=== PATIENT | male | born 1935 | race Caucasian/White ===

== ENCOUNTER 2020-08-23 15:50 | Inpatient (IN) ==
[2020-08-23] MEDS ORDERED: IOPAMIDOL 100 ML BOTTLE IV ONE (15:51)
[2020-08-23] MEDS ORDERED: ONDANSETRON 4 MG/2 ML VIAL IV ONE ×2 (16:31→19:29)
[2020-08-23] MEDS ORDERED: LACTATED RINGERS 1,000 ML IV ONE (16:31)
[2020-08-23] MEDS ORDERED: LEVOFLOXACIN 750 MG/150 ML BAG IV ONE (16:32)
[2020-08-23] MEDS ORDERED: metroNIDAZOLE 500 MG/100 ML BAG IV ONE (16:32)
--- NOTE | 2020-08-23 16:38 | Emergency Department Note ---
Abdominal Pain HPI General Chief Complaint: Abdominal Pain Stated Complaint: abdominal pain Time Seen by Provider: 08/23/20 16:19 Source: patient and RN notes reviewed Mode of arrival: wheelchair Limitations: no limitations History of Present Illness HPI Narrative: Narrative: This patient had a CT scan in the diagnosed diverticulitis a week ago so by Dr. Miranda. He got worse over the last several days with nausea vomiting worsening pain. Also some diarrhea. He has been unable to keep medications down. MD Complaint: abdominal pain Onset (ago): week(s) Consistency: constant Location: diffuse Severity: moderate Quality: aching Radiation: none Migration to: no migration Improves with: nothing Worsens with: movement Related Data Previous Rx's Medication Instructions Recorded levofloxacin 750 mg PO DAILY #7 tab 01/25/19 ondansetron 4 mg SL Q4-6HP PRN #10 tab 01/25/19 oseltamivir 75 mg PO BID #10 cap 01/25/19 Allergies Allergy/AdvReac Type Severity Reaction Status Date / Time No Known Drug Allergies Allergy Verified 08/23/20 15:53 Review of Systems ROS ROS Narrative: Narrative: All systems ED: reviewed and negative except as stated. Constitutional: Denies fever and chills Cardiovascular: Denies chest pain Respiratory: Denies shortness of breath and cough Gastrointestinal: Reports abdominal pain, nausea, vomiting and diarrhea PFSH Narrative Patient History Narrative: Narrative: Medical/Surgical/Family History All Active Problems (Updated 08/23/20 @ 20:54 by Matt Patton MD) Diverticulitis (Acute) Abdominal pain (Acute) Influenza (Acute) Pneumonia (Acute) Medical History (Updated 08/23/20 @ 20:54 by Matt Patton MD) Diverticulitis (Acute) Surgical History (Updated 08/22/20 @ 08:20 by Kaiden Mayogra MD) History of lumbosacral spine surgery (Acute) Social History Smoking Status: Never smoker Exam Narrative Narrative: Narrative: General Limitations: no limitations Head Head: Present atraumatic, normocephalic and normal inspection Eye Eye: Present normal appearance and EOMI; Absent scleral icterus and conjunctival injection ENT ENT: Present normal exam and normal oropharynx Neck Neck: Present normal inspection and full ROM Chest Chest: Present normal inspection and symmetric chest wall rise Respiratory Respiratory: Present normal lung sounds bilaterally; Absent respiratory distress, rales/crackles and wheezes Cardiovascular Cardiovascular: Present regular rate, normal rhythm and normal heart sounds Adbominal Abdominal: Present soft, distention, tenderness and hypoactive bowel sounds; Absent guarding, rebound and rigidity Extremities Extremities: Present normal inspection and full ROM; Absent pedal edema and pretibial edema Neurological Neurological: Present alert Psychiatric Psychiatric: Present normal affect Skin Skin: Present warm (WNL) and diaphoresis Course Vital Signs Vital signs: Vital Signs Temperature 98.8 F 08/23/20 15:50 Pulse Rate 92 H 08/23/20 15:50 Respiratory Rate 20 08/23/20 15:50 Blood Pressure 178/83 08/23/20 15:50 Pulse Oximetry (%) 97 08/23/20 15:50 Temperature 98.8 F 08/23/20 15:50 Pulse Rate 99 H 08/23/20 20:31 Respiratory Rate 20 08/23/20 15:50 Blood Pressure 144/104 08/23/20 20:31 Pulse Oximetry (%) 99 08/23/20 20:31 MDM MDM Narrative Medical decision making narrative: Narrative: I discussed the case with the tariff compiling clerk at [facility] and they have agreed to accept the patient in the morning as they have no beds available tonight. Dr. Gutierrez will admit the patient tonight for control of pain and nausea. Lab Data Lab results reviewed: Yes I reviewed the patient's lab results. Lab results narrative: Bilirubin was 1.7 potassium was 2.9 liver function tests were normal. Result diagrams: 08/23/20 16:42 08/23/20 16:42 Labs: Lab Results 08/23/20 08/23/20 08/23/20 Range/Units 16:42 16:42 19:07 WBC 9.4 (4.5-11.0) K/mcL RBC 3.97 L (4.50-5.90) M/mcL Hgb 12.5 L (13.5-16.5) g/dL Hct 35.0 L (41.0-55.0) % MCV 88.2 (80.0-100.0) fL MCH 31.5 (26.0-34.0) pg MCHC 35.7 (31.0-36.0) g/dL RDW 12.4 (11.5-14.5) % Plt Count 194 (140-440) K/mcL MPV 8.9 (7.4-10.4) fL Neut % (Auto) 83.3 H (38.0-78.0) % Lymph % (Auto) 8.2 L (15.0-49.0) % [place] % (Auto) 8.4 (1.0-12.0) % Eos % (Auto) 0 (0.0-7.0) % Baso % (Auto) 0.1 (0.0-2.0) % Lymph # (Auto) 0.77 L (1.50-4.80) K/mcL [place] # (Auto) 0.79 (0.10-0.90) K/mcL Eos # (Auto) 0 (0.00-0.70) K/mcL Baso # (Auto) 0.01 (0.00-0.20) K/mcL Absolute Neutrophils 7.79 (1.80-8.00) K/mcL Sodium 138 (133-145) mmol/L Potassium 2.9 L* (3.3-5.1) mmol/L Chloride 104 (96-108) mmol/L Carbon Dioxide 17 L (22-30) mmol/L Anion Gap 17.0 H (8.0-16.0) BUN 15 (8-23) mg/dL Creatinine 1.2 (0.7-1.2) mg/dL GFR Calculation 54 Glucose 129 H (70-105) mg/dL Calcium 8.5 L (8.6-10.4) mg/dL Total Bilirubin 1.7 H (0.1-1.0) mg/dL AST 36 (<40) U/L ALT 21 (<40) U/L Alkaline Phosphatase 60 (39-117) U/L Total Protein 5.7 L (5.9-8.4) gm/dL Albumin 3.8 (3.2-5.2) gm/dL Globulin 1.9 L (2.2-3.7) gm/dL Albumin/Globulin Ratio 2.0 (1.0-2.3) Lipase 32 (7-60) U/L Urine Color Straw Urine Appearance Clear (Clear) Urine pH 6.0 (5.0-9.0) Ur Specific [place] 1.033 (1.000-1.035) Urine Protein Negative (Negative) mg/dL Urine Glucose (UA) Negative (Negative) mg/dL Urine Ketones 20 A (Negative) mg/dL Urine Occult Blood 0.03 (Negative) mg/dL Urine Nitrate Negative (Negative) Urine Bilirubin Negative (Negative) mg/dL Urine Urobilinogen Negative mg/dL Ur Leukocyte Esterase Negative (Negative) /ug Urine RBC 2 H (0-1) /hpf Urine WBC < 1 (0-4) /hpf Ur Squamous Epith Cells 0 (0-4) /hpf Urine Bacteria None (0) /hpf Ur Culture Indicated? No Radiology Data Radiology results reviewed: Yes I reviewed the patient's radiology results. Radiology results narrative: CT is suggestive of obstruction of the pancreatic and common bile duct by a diverticulum. Common bile duct measures 9 mm. Discharge Plan Patient/Caregiver Discharge Instructions Pt seen by MITER CUTTER/PA only: No Clinical Impression: Abdominal pain Patient Disposition: Xfer As Outpt/Obs ([facility]) Follow up with: Salvatore Miranda MD [Primary Care Provider] - Prescriptions: No Action oseltamivir 75 MG capsule 75 mg PO BID Qty: 10 RF: 0 levofloxacin 750 MG tablet 750 mg PO DAILY Qty: 7 RF: 0 ondansetron 4 MG tablet 4 mg SL Q4-6HP PRN (Reason: Nausea) Qty: 10 RF: 0
[2020-08-23] MEDS: HYDROmorphone 0.5 MG/0.5 ML SYRINGE IV PRN ×3 (16:55→22:21)
[2020-08-23 17:34] LABS: Basophils # (Auto) 0.01 K/mcL (0.00-0.20); Basophils % (Auto) 0.1 % (0.0-2.0); Eosinophils # (Auto) 0 K/mcL (0.00-0.70); Eosinophils % (Auto) 0 % (0.0-7.0); Hemoglobin 12.5 g/dL (13.5-16.5); Lymphocytes # (Auto) 0.77 K/mcL (1.50-4.80); Lymphocytes % (Auto) 8.2 % (15.0-49.0); Mean Cell Volume 88.2 fL (80.0-100.0); Mean Corpuscular HGB Conc 35.7 g/dL (31.0-36.0); Mean Platelet Volume 8.9 fL (7.4-10.4); Monocytes # (Auto) 0.79 K/mcL (0.10-0.90); Monocytes % (Auto) 8.4 % (1.0-12.0); Neutrophils % (Auto) 83.3 % (38.0-78.0); Platelet Count 194 K/mcL (140-440); RBC 3.97 M/mcL (4.50-5.90); Red Cell Distribution Width 12.4 % (11.5-14.5); WBC 9.4 K/mcL (4.5-11.0)
[2020-08-23] MEDS ORDERED: LORazepam 2 MG/ML VIAL IV ONE (17:59)
[2020-08-23] MEDS ORDERED: POTASSIUM CHLORIDE 20 MEQ in DEXTROSE 5% IN WATER 250 ML IV ONE (18:11)
[2020-08-23 18:12] LABS: ALT/SGPT 21 U/L (<40); AST/SGOT 36 U/L (<40); Albumin 3.8 gm/dL (3.2-5.2); Alkaline Phosphatase 60 U/L (39-117); Bilirubin,Total 1.7 mg/dL (0.1-1.0); Blood Urea Nitrogen 15 mg/dL (8-23); Calcium 8.5 mg/dL (8.6-10.4); Carbon Dioxide 17 mmol/L (22-30); Chloride 104 mmol/L (96-108); Globulin 1.9 gm/dL (2.2-3.7); Glomerular Filtration Rate 54; Glucose 129 mg/dL (70-105)
--- NOTE | 2020-08-23 18:17 | Cat Scan Report ---
CLINICAL INFORMATION: Abdominal pain nausea and vomiting. History of diverticulitis COMPARISON: None. TECHNIQUE: Following enteric contrast, 80 cc of Isovue-370 were injected intravenously, and 60 seconds later, 0.625 mm helical slices were obtained from the mid heart through the subtrochanteric regions. Following reconstruction, 2.5 mm sagittal, coronal and axial reformatted images were processed and reviewed at bone, lung and soft tissue windows. Five minutes later, 0.625 mm helical slices were obtained from the mid heart through the kidneys and viewed at soft tissue windows.The exam was performed using radiation dose optimization techniques including, but not limited to, automated exposure control, adjustment of the mA and/or kV according to patient size and use of iterative reconstruction technique. FINDINGS: Lung bases show mild interstitial fibrosis in the periphery of both lower lobes with traction bronchiectasis within a few of the subsegmental bronchi. No effusions and no stormy infiltrates. The heart is moderately enlarged with extremely heavy calcification in the mitral annulus and the aortic valves. There is also calcific plaque in the visualized coronary arteries. Abdominal images show minimal fatty change within the liver, but no focal hepatic lesions. The gallbladder is either very severely contracted or surgically absent. There is a 6 mm stone either within the contracted gallbladder or a cystic duct stump. Intrahepatic, common hepatic and common bile ducts are moderately dilated colon CBD is 9 mm. There is a 9 mm periampullary diverticulum which may contribute to, bile duct obstruction. Pancreatic duct is also dilated - 4 mm. The remaining pancreas is unremarkable. The right kidney is atrophic with a length is 7.6 cm.Left kidney demonstrates mild compensatory hypertrophy - 11 cm. Mild perinephric stranding about both kidneys. A 5.4 cm simple cyst originates originates from the anterior mid right kidney. The 3 mm nonobstructing stone within a mid calyx of the right kidney but no obstructing stone or nephrosis. A 2.7 cm benign adenoma is noted in the left adrenal gland. Right adrenal gland is normal. Spleen is unremarkable. The abdominal aorta is normal diameter riddled with very heavy fibrofatty calcific plaque. There is a greater than 90% stenosis of the right renal artery origin due to calcific plaque - likely the reason for right renal atrophy. A stenosis greater than 50% is seen within the proximal SMA due to calcific plaque. The remainder of the aortic branches contain plaque but no definite stenoses. There is no free air, free fluid or adenopathy Pelvic images show mild prostate enlargement: 4.1 x 3.4 x 4 cm. This minimal diffuse wall thickening of the urinary bladder suggesting chronic bladder outlet narrowing. Multiple sigmoid diverticuli appreciated no evidence of diverticulitis. The remaining colon appendix, small bowel large bowel and stomach are grossly normal.. A 4 cm right adrenal hernia contains only mesenteric fat. There is also a 3.4 cm femoral hernia containing only mesenteric fat. Bone windows show anterior/posterior fusion at L2-3 and wide laminectomy.. Severe L1-2, L3-4 and L4-5 central canal, lateral recess and IV foraminal stenosis due to broad disc protrusion appreciated.. No focal osseous lesions IMPRESSION: 1. 6 mm stone either within a cystic duct stump or a severely contracted gallbladder. Please correlate with surgical history of prior cholecystectomy. 2. Moderate dilatation of the intrahepatic, common bile duct and pancreatic duct due to a 1 cm periampullary diverticulum partially obstructing both ducts in the ampullary region. 3. 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 Compensatory hypertrophy of the left kidney. A 3 mm nonobstructing stone present within the mid calyx of the right kidney. 4. Sigmoid diverticulosis, but no evidence of diverticulitis. 5. Moderate prostate enlargement with wall thickening of the urinary bladder suggesting chronic bladder outlet narrowing 6. Small right inguinal and femoral hernias containing only mesenteric fat. 7. Moderate cardiomegaly with heavy calcification in the aortic and mitral valves. 8. L1-2, L3-4 and L4-5 central canal, lateral recesses and IV foraminal stenosis due to degeneration. Please correlate with neurogenic claudication and history of lower extremity radiculopathy. 9. 2.7 cm benign adenoma left adrenal gland Interpreted and Authenticated by: Daniel Quiroz 08/23/20
[2020-08-23 20:28] LABS: Appearance,Urine CLEAR (Clear); Bilirubin,Urine Negative (Negative); Color,Urine STRAW; Culture Indicated,Urine No; Glucose,Urine (UA) Negative (Negative); Ketones,Urine 20 mg/dL (Negative); Leukocyte Esterase,Urine Negative /ug (Negative); Nitrate,Urine Negative (Negative); Protein,Urine Negative (Negative); Specific Gravity,Urine 1.033 (1.000-1.035); Urine Blood 0.03 mg/dL (Negative); Urine RBC 2 /hpf (0-1); Urine Squamous Epithelial Cell 0 /hpf (0-4); Urine WBC < 1 /hpf (0-4); Urobilinogen,Urine Negative
[2020-08-23 22:13] LABS: INR 1.1 (0.9-1.1); Prothrombin Time 14.7 sec (11.9-14.5)
[2020-08-23] MEDS ORDERED: HYDROmorphone 1 MG/ML SYRINGE IV PRN (23:52)
[2020-08-23] MEDS ORDERED: METOCLOPRAMIDE 10 MG/2 ML VIAL IV ONE (23:53)
--- NOTE | 2020-08-24 05:56 | Ultrasound Report ---
INDICATION: History of cholecystectomy. Right upper quadrant pain. Abnormal CT scan demonstrates intrahepatic and extrahepatic bile duct dilatation TECHNIQUE: Grayscale and color flow Doppler spectral imaging COMPARISON: Previous CT scan dated 08/23/2020 FINDINGS: Gallbladder:Patient is a history of cholecystectomy. There is a small fluid-containing structure in the expected location of the gallbladder. This may be a contracted gallbladder or cystic duct remnant. There is a calculus with in it. This measures 8 mm maximally. There is no surrounding inflammatory change or free fluid. Common bile duct:Common bile duct measures 7 mm. Distal common bile duct is not well visualized. No significant intrahepatic bile duct dilatation at this time.. Liver:Liver measures 13 cm maximally. Liver appears mildly echogenic. No focal mass. Liver contour is smooth. No evidence for cirrhosis.. Portal vein:Normal hepatopedal portal venous flow Pancreas:Pancreas is poorly visualized Right kidney:Right kidney measures 8.2 x 4.0 x 4.0 cm. Right kidney is atrophic. There is a small benign upper pole cyst. IMPRESSION: 1. Focal abnormality in the right upper quadrant in the gallbladder fossa. This may be a contracted gallbladder or cystic duct remnant. Patient gives a history of cholecystectomy 2. 8 mm calculus within this structure 3. Mildly prominent common bile duct. No intrahepatic bile duct dilatation. Interpreted and Authenticated by: Daniel Durham 08/24/20
[2020-08-24 08:55] LABS: Basophils # (Auto) 0 K/mcL (0.00-0.20); Basophils % (Auto) 0 % (0.0-2.0); Eosinophils # (Auto) 0.23 K/mcL (0.00-0.70); Eosinophils % (Auto) 1.8 % (0.0-7.0); Hematocrit 33.4 % (41.0-55.0); Lymphocytes # (Auto) 0.78 K/mcL (1.50-4.80); Lymphocytes % (Auto) 6.1 % (15.0-49.0); Mean Cell Volume 87.7 fL (80.0-100.0); Mean Corpuscular HGB Conc 35.9 g/dL (31.0-36.0); Monocytes # (Auto) 1.13 K/mcL (0.10-0.90); Monocytes % (Auto) 8.8 % (1.0-12.0); Neutrophils % (Auto) 83.3 % (38.0-78.0); Platelet Count 179 K/mcL (140-440); RBC 3.81 M/mcL (4.50-5.90); Red Cell Distribution Width 12.7 % (11.5-14.5); WBC 12.8 K/mcL (4.5-11.0)
[2020-08-24] MEDS ORDERED: POTASSIUM CHLORIDE 20 MEQ TABLET PO ONE (09:18)
[2020-08-24 09:22] LABS: ALT/SGPT 19 U/L (<40); AST/SGOT 37 U/L (<40); Albumin 3.3 gm/dL (3.2-5.2); Albumin/Globulin Ratio 1.7 (1.0-2.3); Alkaline Phosphatase 54 U/L (39-117); Bilirubin,Total 1.5 mg/dL (0.1-1.0); Blood Urea Nitrogen 16 mg/dL (8-23); Calcium 7.7 mg/dL (8.6-10.4); Carbon Dioxide 19 mmol/L (22-30); Chloride 102 mmol/L (96-108); Globulin 1.9 gm/dL (2.2-3.7); Glomerular Filtration Rate 60; Glucose 134 mg/dL (70-105)
--- NOTE | 2020-08-24 10:06 | Emergency Department Note ---
HPI General Chief complaint: Abdominal Pain Stated complaint: abdominal pain Time Seen by Provider: 08/23/20 16:19 Source: patient and RN notes reviewed Mode of arrival: wheelchair Limitations: no limitations History of Present Illness HPI Narrative: 85-year-old male presenting to the emergency department with ongoing progression of his abdominal pain patient seen previously for the same thing. At this point in his work-up I assumed care after Dr. Patton had him overnight. Patient with pending MRCP to determine if there is obstructing stone in the common bile duct or other acute emergent pathology. Related Data Home Medications Medication Instructions Recorded Confirmed hydrocodone-acetaminophen 1 tab PO Q4-6HP PRN 08/24/20 08/24/20 Allergies Allergy/AdvReac Type Severity Reaction Status Date / Time No Known Drug Allergies Allergy Verified 08/23/20 15:53 Review of Systems ROS ROS Narrative: Narrative: All systems ED: reviewed and negative except as stated. Gastrointestinal: Reports abdominal pain, nausea, vomiting and diarrhea PFSH Narrative Patient History Narrative: Narrative: Medical/Surgical/Family History All Active Problems (Updated 08/24/20 @ 15:59 by Huy Cruz MD) Musculoskeletal chest pain (Acute) Diverticulitis (Acute) Abdominal pain (Acute) Influenza (Acute) Pneumonia (Acute) Medical History Diverticulitis (Acute) Surgical History History of lumbosacral spine surgery (Acute) Social History Smoking Status: Never smoker Exam Narrative Narrative: Narrative: General: Alert, interactive, appropriate Head: Atraumatic, normocephalic Eyes: Extraocular movements intact, sclera anicteric, no conjunctival injection Ears: Pinnae normal, no discharge Mouth: Oral mucosa moist, no acute swelling or evidence of infection Nares: No nasal discharge, patent bilaterally Neck: Trachea midline, full range of motion Chest: Symmetrical chest wall rise, breathing normally; nonlabored respirations Cardiovascular: Patient with excellent perfusion to the extremities; without tachycardia/bradycardia Abd: no apparent abdominal distention, no voluntary/involuntary guarding; patient with primarily midepigastric abdominal pain Skin: Patient without area of erythema, patient is without rash, no ascending lymphangitis or lymphadenopathy Extremities: Full range of motion joints, no obvious deformities Neuro: Alert, oriented x3, cranial nerves II through XII grossly intact, patient without lateralizing findings such as weakness, or abnormal reflexes Psychiatric: Normal affect, normal mood General Limitations: no limitations Course Vital Signs Vital signs: Vital Signs Temperature 98.8 F 08/23/20 15:50 Pulse Rate 92 H 08/23/20 15:50 Respiratory Rate 20 08/23/20 15:50 Blood Pressure 178/83 08/23/20 15:50 Pulse Oximetry (%) 97 08/23/20 15:50 Temperature 97.9 F 08/24/20 14:13 Pulse Rate 81 08/24/20 13:31 Respiratory Rate 16 08/24/20 14:13 Blood Pressure 164/82 08/24/20 14:13 Pulse Oximetry (%) 98 08/24/20 14:13 [facility] MDM Narrative Medical decision making narrative: Assumed care this morning at 0900 patient with pending MRCP. Patient also noted to be hypokalemic this was treated with 40 M EQ KCl. Patient with MRCP that does not demonstrate a significant occlusion of the common bile duct or diverticulum or other abnormality of the common bile duct at this time. Patient with dark stool does have pretty stable H&H over time little bit of tachycardia earlier. Discussed case with Dr. Pizano and patient does not need ERCP could potentially need endoscopy. Patient given Protonix 80 mg IV. Also given some IV fluids were repeating his potassium after 20 K rider last night and potassium has gone down from 2. 9 to 2.7. Discussed the case with Dr. Gutierrez and the consensus medical opinion is to admit the pt for hypokalemia and guiac positive stools. Lab Data Result diagrams: 08/24/20 07:58 08/24/20 07:58 Labs: Lab Results 08/23/20 08/23/20 08/23/20 Range/Units 16:42 16:42 19:07 WBC 9.4 (4.5-11.0) K/mcL RBC 3.97 L (4.50-5.90) M/mcL Hgb 12.5 L (13.5-16.5) g/dL Hct 35.0 L (41.0-55.0) % MCV 88.2 (80.0-100.0) fL MCH 31.5 (26.0-34.0) pg MCHC 35.7 (31.0-36.0) g/dL RDW 12.4 (11.5-14.5) % Plt Count 194 (140-440) K/mcL MPV 8.9 (7.4-10.4) fL Neut % (Auto) 83.3 H (38.0-78.0) % Lymph % (Auto) 8.2 L (15.0-49.0) % [place] % (Auto) 8.4 (1.0-12.0) % Eos % (Auto) 0 (0.0-7.0) % Baso % (Auto) 0.1 (0.0-2.0) % Lymph # (Auto) 0.77 L (1.50-4.80) K/mcL [place] # (Auto) 0.79 (0.10-0.90) K/mcL Eos # (Auto) 0 (0.00-0.70) K/mcL Baso # (Auto) 0.01 (0.00-0.20) K/mcL Absolute Neutrophils 7.79 (1.80-8.00) K/mcL PT (11.9-14.5) sec INR (0.9-1.1) VBG Lactic Acid (0.5-2.0) mmol/L Sodium 138 (133-145) mmol/L Potassium 2.9 L* (3.3-5.1) mmol/L Chloride 104 (96-108) mmol/L Carbon Dioxide 17 L (22-30) mmol/L Anion Gap 17.0 H (8.0-16.0) BUN 15 (8-23) mg/dL Creatinine 1.2 (0.7-1.2) mg/dL GFR Calculation 54 Glucose 129 H (70-105) mg/dL Calcium 8.5 L (8.6-10.4) mg/dL Total Bilirubin 1.7 H (0.1-1.0) mg/dL AST 36 (<40) U/L ALT 21 (<40) U/L Alkaline Phosphatase 60 (39-117) U/L Total Protein 5.7 L (5.9-8.4) gm/dL Albumin 3.8 (3.2-5.2) gm/dL Globulin 1.9 L (2.2-3.7) gm/dL Albumin/Globulin Ratio 2.0 (1.0-2.3) Lipase 32 (7-60) U/L Urine Color Straw Urine Appearance Clear (Clear) Urine pH 6.0 (5.0-9.0) Ur Specific [place] 1.033 (1.000-1.035) Urine Protein Negative (Negative) mg/dL Urine Glucose (UA) Negative (Negative) mg/dL Urine Ketones 20 A (Negative) mg/dL Urine Occult Blood 0.03 (Negative) mg/dL Urine Nitrate Negative (Negative) Urine Bilirubin Negative (Negative) mg/dL Urine Urobilinogen Negative mg/dL Ur Leukocyte Esterase Negative (Negative) /ug Urine RBC 2 H (0-1) /hpf Urine WBC < 1 (0-4) /hpf Ur Squamous Epith Cells 0 (0-4) /hpf Urine Bacteria None (0) /hpf Ur Culture Indicated? No SARS-CoV-2 (PCR) (Negative) 08/23/20 08/23/20 08/24/20 Range/Units 21:21 21:26 07:58 WBC 12.8 H (4.5-11.0) K/mcL RBC 3.81 L (4.50-5.90) M/mcL Hgb 12.0 L (13.5-16.5) g/dL Hct 33.4 L (41.0-55.0) % MCV 87.7 (80.0-100.0) fL MCH 31.5 (26.0-34.0) pg MCHC 35.9 (31.0-36.0) g/dL RDW 12.7 (11.5-14.5) % Plt Count 179 (140-440) K/mcL MPV 9.0 (7.4-10.4) fL Neut % (Auto) 83.3 H (38.0-78.0) % Lymph % (Auto) 6.1 L (15.0-49.0) % [place] % (Auto) 8.8 (1.0-12.0) % Eos % (Auto) 1.8 (0.0-7.0) % Baso % (Auto) 0 (0.0-2.0) % Lymph # (Auto) 0.78 L (1.50-4.80) K/mcL [place] # (Auto) 1.13 H (0.10-0.90) K/mcL Eos # (Auto) 0.23 (0.00-0.70) K/mcL Baso # (Auto) 0 (0.00-0.20) K/mcL Absolute Neutrophils 10.63 H (1.80-8.00) K/mcL PT 14.7 H (11.9-14.5) sec INR 1.1 (0.9-1.1) VBG Lactic Acid (0.5-2.0) mmol/L Sodium (133-145) mmol/L Potassium (3.3-5.1) mmol/L Chloride (96-108) mmol/L Carbon Dioxide (22-30) mmol/L Anion Gap (8.0-16.0) BUN (8-23) mg/dL Creatinine (0.7-1.2) mg/dL GFR Calculation Glucose (70-105) mg/dL Calcium (8.6-10.4) mg/dL Total Bilirubin (0.1-1.0) mg/dL AST (<40) U/L ALT (<40) U/L Alkaline Phosphatase (39-117) U/L Total Protein (5.9-8.4) gm/dL Albumin (3.2-5.2) gm/dL Globulin (2.2-3.7) gm/dL Albumin/Globulin Ratio (1.0-2.3) Lipase (7-60) U/L Urine Color Urine Appearance (Clear) Urine pH (5.0-9.0) Ur Specific [place] (1.000-1.035) Urine Protein (Negative) mg/dL Urine Glucose (UA) (Negative) mg/dL Urine Ketones (Negative) mg/dL Urine Occult Blood (Negative) mg/dL Urine Nitrate (Negative) Urine Bilirubin (Negative) mg/dL Urine Urobilinogen mg/dL Ur Leukocyte Esterase (Negative) /ug Urine RBC (0-1) /hpf Urine WBC (0-4) /hpf Ur Squamous Epith Cells (0-4) /hpf Urine Bacteria (0) /hpf Ur Culture Indicated? SARS-CoV-2 (PCR) Negative (Negative) 08/24/20 08/24/20 Range/Units 07:58 13:48 WBC (4.5-11.0) K/mcL RBC (4.50-5.90) M/mcL Hgb (13.5-16.5) g/dL Hct (41.0-55.0) % MCV (80.0-100.0) fL MCH (26.0-34.0) pg MCHC (31.0-36.0) g/dL RDW (11.5-14.5) % Plt Count (140-440) K/mcL MPV (7.4-10.4) fL Neut % (Auto) (38.0-78.0) % Lymph % (Auto) (15.0-49.0) % [place] % (Auto) (1.0-12.0) % Eos % (Auto) (0.0-7.0) % Baso % (Auto) (0.0-2.0) % Lymph # (Auto) (1.50-4.80) K/mcL [place] # (Auto) (0.10-0.90) K/mcL Eos # (Auto) (0.00-0.70) K/mcL Baso # (Auto) (0.00-0.20) K/mcL Absolute Neutrophils (1.80-8.00) K/mcL PT (11.9-14.5) sec INR (0.9-1.1) VBG Lactic Acid 1.4 (0.5-2.0) mmol/L Sodium 136 (133-145) mmol/L Potassium 2.7 L* (3.3-5.1) mmol/L Chloride 102 (96-108) mmol/L Carbon Dioxide 19 L (22-30) mmol/L Anion Gap 15.0 (8.0-16.0) BUN 16 (8-23) mg/dL Creatinine 1.1 (0.7-1.2) mg/dL GFR Calculation 60 Glucose 134 H (70-105) mg/dL Calcium 7.7 L (8.6-10.4) mg/dL Total Bilirubin 1.5 H (0.1-1.0) mg/dL AST 37 (<40) U/L ALT 19 (<40) U/L Alkaline Phosphatase 54 (39-117) U/L Total Protein 5.2 L (5.9-8.4) gm/dL Albumin 3.3 (3.2-5.2) gm/dL Globulin 1.9 L (2.2-3.7) gm/dL Albumin/Globulin Ratio 1.7 (1.0-2.3) Lipase 16 (7-60) U/L Urine Color Urine Appearance (Clear) Urine pH (5.0-9.0) Ur Specific [place] (1.000-1.035) Urine Protein (Negative) mg/dL Urine Glucose (UA) (Negative) mg/dL Urine Ketones (Negative) mg/dL Urine Occult Blood (Negative) mg/dL Urine Nitrate (Negative) Urine Bilirubin (Negative) mg/dL Urine Urobilinogen mg/dL Ur Leukocyte Esterase (Negative) /ug Urine RBC (0-1) /hpf Urine WBC (0-4) /hpf Ur Squamous Epith Cells (0-4) /hpf Urine Bacteria (0) /hpf Ur Culture Indicated? SARS-CoV-2 (PCR) (Negative) Discharge Plan Patient/Caregiver Discharge Instructions Pt seen by DIRECT[employer]ES/PA only: No Clinical Impression: Abdominal pain, Acute hypokalemia, Guaiac positive stools Patient Disposition: Xfer As Outpt/Obs ([facility]) Condition: Fair Discharge Date/Time: 08/24/20 14:03
[2020-08-24] MEDS ORDERED: PANTOPRAZOLE 40 MG VIAL IV ONE (11:44)
--- NOTE | 2020-08-24 12:47 | Magnetic Resonance Report ---
INDICATION: History of cholecystectomy. Abdominal pain. COMPARISON: CT scan dated 08/23/2020. Abdominal ultrasound dated 08/24/2020 TECHNIQUE: Axial T2 FSRTr, T2 FS SSFSE, SSFSE, T2 SSFSE BH, SSFSE BH, FIRM T1 BH. Coronal T2 FSRTr, SSFSE BH. MIP cine images. FINDINGS: Somewhat suboptimal evaluation as this patient was unable to hold his breath. This patient gives a history of previous cholecystectomy. There is a contracted gallbladder with visualized cystic duct. There appear to be 2 calculi within the gallbladder or remnant gallbladder. These measure 5 mm and 7 mm in size. No pericholecystic abnormality. Common bile duct measures 6.3 mm in cross-sectional diameter. No intraluminal filling defect. No choledocholithiasis. Liver is negative. No focal intrahepatic abnormality. Liver contour is smooth. There is no ascites. Pancreatic duct is irregular in caliber which may indicate chronic pancreatitis. Pancreatic duct is dilated and measures 6 mm maximally. There is no pancreatic head mass identified on this noncontrast enhanced examination. Previous CT scan demonstrated a 10 mm periampullary diverticulum. This is not identified on present examination. Left adrenal gland is enlarged and contains central fat. This is a benign appearance Right kidney is atrophic, unchanged. There is no solid renal mass. No hydronephrosis. There is a 5 cm left lower pole renal cyst. IMPRESSION: 1. Findings consistent with small gallbladder or gallbladder remnant. Two intraluminal filling defects are consistent with cholelithiasis 2. No choledocholithiasis 3. Mildly prominent and irregular pancreatic duct. Chronic pancreatitis is possible. There is no pancreatic mass Interpreted and Authenticated by: Daniel Durham 08/24/20
--- NOTE | 2020-08-24 12:59 | Internal Med History&Physical ---
HPI History of Present Illness Patient information: Note initiated : 08/24/20 at 12:59 pm Service Date, if different from initiated Date: [] Patient: Torrey Castro a 85 y/o M admitted on for abdominal pain. Chief Complaint: Abd pain History of present illness: Mr. Castro is a 85 year old M resents to the ER second time in 24 hours with persistent mid upper and right-sided abdominal pain along associated diarrhea. Patient was evaluated at his primary care physician's office and underwent CT scan that was suggestive of diverticulitis. He was started on Flagyl and ciprofloxacin on the however symptoms continued to worsen with increasing nausea abdominal discomfort worsening with food. He presented again yesterday. Initial work-up was consistent with intrahepatic and common bile duct dilatation due to a 1 cm perioperative diverticulum obstructing both ducts. Subsequently GI at [place] was consulted however due to lack of availability of beds patient was kept overnight. Patient subsequent underwent MRCP that did not show any evidence of choledocho lithiasis. Subsequently hospitalist service was consulted. Patient was also noticed to have potassium 2.7 for which he was started on replacement. He was noted to have black stools for which GI was consulted and recommended hospitalization/PPI . Thereafter hospital service was consulted for admission The time of my evaluation patient is in moderate discomfort endorses to 6 out of 10 to 8 out of 10 mid abdominal pain. Denies associated fever, shaking chills, jaundice, dysuria endorses to 2-3 episodes of loose stools. He also denies loss of appetite. Patient denies changes in medication, sick contacts. He denies recent trauma, fall, bruising. Review of systems 10 point review system was performed and is negative except for ones discussed above PFSH PFSH All Active Problems (Updated 08/24/20 @ 15:59 by Huy Cruz MD) Musculoskeletal chest pain (Acute) Diverticulitis (Acute) Abdominal pain (Acute) Influenza (Acute) Pneumonia (Acute) Medical History Diverticulitis (Acute) Surgical History History of lumbosacral spine surgery (Acute) Social History smoking status: Never smoker MEDS/ALLERGIES Home Medications and Allergies Home Medications Medication Instructions Recorded Confirmed Type hydrocodone-acetaminophen 1 tab PO Q4-6HP PRN 08/24/20 08/24/20 History Allergies Allergy/AdvReac Type Severity Reaction Status Date / Time No Known Drug Allergies Allergy Verified 08/23/20 15:53 EXAM Constitutional Vitals: Temp Pulse Resp BP Pulse Ox 98.8 F 83 20 144/81 97 08/23/20 15:50 08/24/20 12:57 08/23/20 15:50 08/24/20 12:44 08/24/20 12:57 Anxious and distressed Head normocephalic Oral cavity moist No ear nose discharge No scleral icterus Neck supple no lymphadenopathy S1-S2 occasionally irregular Nonlabored breathing Tender abdomen epigastric area without rebound or guarding Lower extremity no cyanosis clubbing or joint swelling Skin no suspicious lesion Psych anxious but alert cooperative Neuro normal higher function DATA Data Completed and Pending Labs: Labs from last 24 hours 08/24/20 08/24/20 08/23/20 07:58 07:58 21:26 WBC 12.8 H RBC 3.81 L Hgb 12.0 L Hct 33.4 L MCV 87.7 MCH 31.5 MCHC 35.9 RDW 12.7 Plt Count 179 MPV 9.0 Neut % (Auto) 83.3 H Lymph % (Auto) 6.1 L [place] % (Auto) 8.8 Eos % (Auto) 1.8 Baso % (Auto) 0 Lymph # (Auto) 0.78 L [place] # (Auto) 1.13 H Eos # (Auto) 0.23 Baso # (Auto) 0 Absolute Neutrophils 10.63 H PT 14.7 H INR 1.1 Sodium 136 Potassium 2.7 L* Chloride 102 Carbon Dioxide 19 L Anion Gap 15.0 BUN 16 Creatinine 1.1 GFR Calculation 60 Glucose 134 H Calcium 7.7 L Total Bilirubin 1.5 H AST 37 ALT 19 Alkaline Phosphatase 54 Total Protein 5.2 L Albumin 3.3 Globulin 1.9 L Albumin/Globulin Ratio 1.7 Lipase 16 Urine Color Urine Appearance Urine pH Ur Specific [place] Urine Protein Urine Glucose (UA) Urine Ketones Urine Occult Blood Urine Nitrate Urine Bilirubin Urine Urobilinogen Ur Leukocyte Esterase Urine RBC Urine WBC Ur Squamous Epith Cells Urine Bacteria Ur Culture Indicated? SARS-CoV-2 (PCR) 08/23/20 08/23/20 08/23/20 21:21 20:36 19:07 WBC RBC Hgb Hct MCV MCH MCHC RDW Plt Count MPV Neut % (Auto) Lymph % (Auto) [place] % (Auto) Eos % (Auto) Baso % (Auto) Lymph # (Auto) [place] # (Auto) Eos # (Auto) Baso # (Auto) Absolute Neutrophils PT Pending INR Pending Sodium Potassium Chloride Carbon Dioxide Anion Gap BUN Creatinine GFR Calculation Glucose Calcium Total Bilirubin AST ALT Alkaline Phosphatase Total Protein Albumin Globulin Albumin/Globulin Ratio Lipase Urine Color Straw Urine Appearance Clear Urine pH 6.0 Ur Specific [place] 1.033 Urine Protein Negative Urine Glucose (UA) Negative Urine Ketones 20 A Urine Occult Blood 0.03 Urine Nitrate Negative Urine Bilirubin Negative Urine Urobilinogen Negative Ur Leukocyte Esterase Negative Urine RBC 2 H Urine WBC < 1 Ur Squamous Epith Cells 0 Urine Bacteria None Ur Culture Indicated? No SARS-CoV-2 (PCR) Negative 08/23/20 08/23/20 16:42 16:42 WBC 9.4 RBC 3.97 L Hgb 12.5 L Hct 35.0 L MCV 88.2 MCH 31.5 MCHC 35.7 RDW 12.4 Plt Count 194 MPV 8.9 Neut % (Auto) 83.3 H Lymph % (Auto) 8.2 L [place] % (Auto) 8.4 Eos % (Auto) 0 Baso % (Auto) 0.1 Lymph # (Auto) 0.77 L [place] # (Auto) 0.79 Eos # (Auto) 0 Baso # (Auto) 0.01 Absolute Neutrophils 7.79 PT INR Sodium 138 Potassium 2.9 L* Chloride 104 Carbon Dioxide 17 L Anion Gap 17.0 H BUN 15 Creatinine 1.2 GFR Calculation 54 Glucose 129 H Calcium 8.5 L Total Bilirubin 1.7 H AST 36 ALT 21 Alkaline Phosphatase 60 Total Protein 5.7 L Albumin 3.8 Globulin 1.9 L Albumin/Globulin Ratio 2.0 Lipase 32 Urine Color Urine Appearance Urine pH Ur Specific [place] Urine Protein Urine Glucose (UA) Urine Ketones Urine Occult Blood Urine Nitrate Urine Bilirubin Urine Urobilinogen Ur Leukocyte Esterase Urine RBC Urine WBC Ur Squamous Epith Cells Urine Bacteria Ur Culture Indicated? SARS-CoV-2 (PCR) A/P Narrative A/P Narrative: * Abdominal pain unclear etiology. Continue conservative management/analgesics with bowel rest and crystalloids. Extensive imaging negative for acute process including MRCP/CT abdomen. Rule out musculoskeletal cause. Rule out ischemic bowel. Surgery consult * Dark stools possible upper GI bleed. GI consult., PPI, n.p.o. every 4 hemoglobin checks * Hypokalemia 2.7 on replacement * Prophylaxis SCDs Plan * Observation admit * Serial hemoglobin * PPI * Check venous lactate * Surgery consult * GI consult if worsening abdominal pain * Potassium replacement * Directed therapies Time Spent With Patient Time: Total time spent is greater than 50% in coordination of care (as documented) at patient's floor/unit and/or counseling patient:
[2020-08-24] MEDS ORDERED: ONDANSETRON 4 MG ODT TABLET SL PRN (14:13)
[2020-08-24] MEDS ORDERED: ACETAMINOPHEN 325 MG TABLET PO PRN (14:13)
[2020-08-24] MEDS ORDERED: BISACODYL 10 MG SUPP.RECT PR PRN (14:13)
[2020-08-24] MEDS ORDERED: ONDANSETRON 4 MG/2 ML VIAL IV PRN (14:13)
[2020-08-24] MEDS ORDERED: POTASSIUM CHLORIDE 20 MEQ PACKET PO PRN (14:13)
[2020-08-24] MEDS ORDERED: POLYETHYLENE GLYCOL 3350 17 GM PACKET PO PRN (14:13)
[2020-08-24] MEDS ORDERED: ACETAMINOPHEN 650 MG/65 ML BOTTLE IV PRN (14:13)
[2020-08-24] MEDS ORDERED: MAGNESIUM SULFATE 2 GM/50 ML BAG IV PRN (14:13)
[2020-08-24] MEDS: 0.9 % SODIUM CHLORIDE 1,000 ML IV SCH (14:27)
[2020-08-24] MEDS: 0.9 % SODIUM CHLORIDE 10 ML SYRINGE IV SCH ×2 (14:27→21:07)
[2020-08-24] MEDS: HYDROmorphone 0.5 MG/0.5 ML SYRINGE IV PRN ×2 (14:40→22:13)
[2020-08-24] MEDS: POTASSIUM CHLORIDE 40 MEQ in DEXTROSE 5% IN WATER 500 ML IV PRN (15:28)
[2020-08-24 15:42] LABS: INR 1.2 (0.9-1.1); Prothrombin Time 15.3 sec (11.9-14.5)
--- NOTE | 2020-08-24 16:06 | General Surgery Consult Note ---
HPI Data of Consult Consult date: 08/24/20 Requesting physician: Raul Chaudhary Primary Care Provider: Salvatore Miranda Consult Narrative Patient Information: Note initiated : 08/24/20 at 3:43 pm Service Date, if different from initiated Date: [] Patient: Torrey Castro 85 y/o M admitted on 08/24/20 for abdominal pain. Chief Complaint: [] Chief complaint: upper abdominal left flank and CVA pain cc:: CC: Raul Chaudhary the patient is seen for evaluation of abdominal pain. He has been evaluated since 22 August for abdominal pain in the ER. He presented with complaints of abdominal pain and diarrhea and gave a history that he had a diagnosis of diverticulitis confirmed by CT at [facility]. He was treated with Cipro and Flagyl but stopped because he states that the medication made the pain worse and he developed nausea and vomiting. The CT at [place] is interpreted as showing diverticulitis of the descending colon. On examination on the he had a diffusely tender abdomen but had a normal white count of 6.6 with hemoglobin 11.8 and hematocrit of 33.3. He was discharged. Return shortly thereafter and complained of similar pain. He was In the emergency room overnight. His white count was 9.4, hemoglobin 12.5, hematocrit 35. There was a question by CT of him having a small stone in the cystic duct remnant. The patient is status post open cholecystectomy many years ago. He however has had normal LFTs and is alkaline phosphatase is totally normal. He has not been febrile. On the evening of 23 August he complained of midepigastric pain. He was afebrile at that time. An attempt was made to have him transferred to [facility] but there was no bed available and he has been in the emergency room for quite some time. It was suggested that an MRCP be done in an MRCP was done earlier today and this shows 2 small subcentimeter retained stones and a small cystic duct remnant of normal common bowel duct and normal pancreatic. His serum lactate is 1.4. There is a question of whether or not he has had guaiac positive stools but his hemoglobin has been stable over the past 2 days. On questioning today at this time the patient is complaining of left sided pain in an area of where he has 4 linear bruises and superficial abrasions. He has very definite tenderness of his lower costal cartilages on the left side and he has tenderness of his left rib cage extending back to the CVA region. He states now that this is the site of the pain that he's had all along however he seems to be confused. He denies nausea at this time. He does state that he had some diarrhea. PFSH PFSH All Active Problems (Updated 08/24/20 @ 15:59 by Huy Cruz MD) Musculoskeletal chest pain (Acute) Diverticulitis (Acute) Abdominal pain (Acute) Influenza (Acute) Pneumonia (Acute) Medical History Diverticulitis (Acute) Surgical History History of lumbosacral spine surgery (Acute) Social History smoking status: Never smoker MEDS/ALLERGIES Home Medications and Allergies Home Medications Medication Instructions Recorded Confirmed Type hydrocodone-acetaminophen 1 tab PO Q4-6HP PRN 08/24/20 08/24/20 History Allergies Allergy/AdvReac Type Severity Reaction Status Date / Time No Known Drug Allergies Allergy Verified 08/23/20 15:53 Physical Examination Vital Signs Vital signs: Temp Pulse Resp BP Pulse Ox 97.9 F 81 16 164/82 98 08/24/20 14:13 08/24/20 13:31 08/24/20 14:13 08/24/20 14:13 08/24/20 14:13 General physical appearance General physical exam: well developed, moderate distress and moderate pain (left sided lower costal cartilages and left rib cage extending posteriorly; superficial linear abrasions in the area of tenderness) Eyes Eye exam: PERRL and normal ocular movement ENT ENT exam: normal mucosa and decreased hearing (significant hearing loss) Head Head exam IM: Present atraumatic, normal inspection and normocephalic Head exam expanded IM: Absent general tenderness Neck Neck exam: no masses, trachea midline, no lymphadenopathy and no venous diste nsion; negative no bruits Cardiovascular Cardiovascular exam IM: Present normal rate and rhythm, RRR, +S1 and +S2; Absent gallop and JVD Respiratory Respiratory exam: normal expansion, normal respiratory effort and clear to auscultation Abdomen Abdomen: Present soft and tender (mild tenderness in epigastrium to the left of midline and along the lower left sided subcostal region) Integumentary Integumentary: Present other (for superficial abrasions of the left posterior lateral rib cage) Neurologic Neurologic: Present normal coordination, normal sensation and memory loss (apparent loss of recent memory on close questioning) Musculoskeletal Musculoskeletal: Present normal posture Psychiatric Psychiatric: Present oriented to time, oriented to person, oriented to place and speech is normal Results Labs Result diagrams: 08/24/20 07:58 08/24/20 07:58 Labs: Abnormal lab results 08/23/20 08/23/20 08/23/20 Range/Units 16:42 16:42 19:07 WBC (4.5-11.0) K/mcL RBC 3.97 L (4.50-5.90) M/mcL Hgb 12.5 L (13.5-16.5) g/dL Hct 35.0 L (41.0-55.0) % Neut % (Auto) 83.3 H (38.0-78.0) % Lymph % (Auto) 8.2 L (15.0-49.0) % Lymph # (Auto) 0.77 L (1.50-4.80) K/mcL [place] # (Auto) (0.10-0.90) K/mcL Absolute Neutrophils (1.80-8.00) K/mcL PT (11.9-14.5) sec INR (0.9-1.1) Potassium 2.9 L* (3.3-5.1) mmol/L Carbon Dioxide 17 L (22-30) mmol/L Anion Gap 17.0 H (8.0-16.0) Glucose 129 H (70-105) mg/dL Calcium 8.5 L (8.6-10.4) mg/dL Total Bilirubin 1.7 H (0.1-1.0) mg/dL Total Protein 5.7 L (5.9-8.4) gm/dL Globulin 1.9 L (2.2-3.7) gm/dL Urine Ketones 20 A (Negative) mg/dL Urine RBC 2 H (0-1) /hpf 08/23/20 08/24/20 08/24/20 Range/Units 21:26 07:58 07:58 WBC 12.8 H (4.5-11.0) K/mcL RBC 3.81 L (4.50-5.90) M/mcL Hgb 12.0 L (13.5-16.5) g/dL Hct 33.4 L (41.0-55.0) % Neut % (Auto) 83.3 H (38.0-78.0) % Lymph % (Auto) 6.1 L (15.0-49.0) % Lymph # (Auto) 0.78 L (1.50-4.80) K/mcL [place] # (Auto) 1.13 H (0.10-0.90) K/mcL Absolute Neutrophils 10.63 H (1.80-8.00) K/mcL PT 14.7 H (11.9-14.5) sec INR (0.9-1.1) Potassium 2.7 L* (3.3-5.1) mmol/L Carbon Dioxide 19 L (22-30) mmol/L Anion Gap (8.0-16.0) Glucose 134 H (70-105) mg/dL Calcium 7.7 L (8.6-10.4) mg/dL Total Bilirubin 1.5 H (0.1-1.0) mg/dL Total Protein 5.2 L (5.9-8.4) gm/dL Globulin 1.9 L (2.2-3.7) gm/dL Urine Ketones (Negative) mg/dL Urine RBC (0-1) /hpf 08/24/20 Range/Units 14:20 WBC (4.5-11.0) K/mcL RBC (4.50-5.90) M/mcL Hgb (13.5-16.5) g/dL Hct (41.0-55.0) % Neut % (Auto) (38.0-78.0) % Lymph % (Auto) (15.0-49.0) % Lymph # (Auto) (1.50-4.80) K/mcL [place] # (Auto) (0.10-0.90) K/mcL Absolute Neutrophils (1.80-8.00) K/mcL PT 15.3 H (11.9-14.5) sec INR 1.2 H (0.9-1.1) Potassium (3.3-5.1) mmol/L Carbon Dioxide (22-30) mmol/L Anion Gap (8.0-16.0) Glucose (70-105) mg/dL Calcium (8.6-10.4) mg/dL Total Bilirubin (0.1-1.0) mg/dL Total Protein (5.9-8.4) gm/dL Globulin (2.2-3.7) gm/dL Urine Ketones (Negative) mg/dL Urine RBC (0-1) /hpf Diabetes panel 08/23/20 08/24/20 Range/Units 16:42 07:58 Sodium 138 136 (133-145) mmol/L Potassium 2.9 L* 2.7 L* (3.3-5.1) mmol/L Chloride 104 102 (96-108) mmol/L Carbon Dioxide 17 L 19 L (22-30) mmol/L BUN 15 16 (8-23) mg/dL Creatinine 1.2 1.1 (0.7-1.2) mg/dL Glucose 129 H 134 H (70-105) mg/dL Calcium 8.5 L 7.7 L (8.6-10.4) mg/dL AST 36 37 (<40) U/L ALT 21 19 (<40) U/L Alkaline Phosphatase 60 54 (39-117) U/L Total Protein 5.7 L 5.2 L (5.9-8.4) gm/dL Albumin 3.8 3.3 (3.2-5.2) gm/dL Calcium panel 08/23/20 08/24/20 Range/Units 16:42 07:58 Calcium 8.5 L 7.7 L (8.6-10.4) mg/dL Albumin 3.8 3.3 (3.2-5.2) gm/dL Pituitary panel 08/23/20 08/24/20 Range/Units 16:42 07:58 Sodium 138 136 (133-145) mmol/L Potassium 2.9 L* 2.7 L* (3.3-5.1) mmol/L Chloride 104 102 (96-108) mmol/L Carbon Dioxide 17 L 19 L (22-30) mmol/L BUN 15 16 (8-23) mg/dL Creatinine 1.2 1.1 (0.7-1.2) mg/dL Glucose 129 H 134 H (70-105) mg/dL Calcium 8.5 L 7.7 L (8.6-10.4) mg/dL Adrenal panel 08/23/20 08/24/20 Range/Units 16:42 07:58 Sodium 138 136 (133-145) mmol/L Potassium 2.9 L* 2.7 L* (3.3-5.1) mmol/L Chloride 104 102 (96-108) mmol/L Carbon Dioxide 17 L 19 L (22-30) mmol/L BUN 15 16 (8-23) mg/dL Creatinine 1.2 1.1 (0.7-1.2) mg/dL Glucose 129 H 134 H (70-105) mg/dL Calcium 8.5 L 7.7 L (8.6-10.4) mg/dL Total Bilirubin 1.7 H 1.5 H (0.1-1.0) mg/dL AST 36 37 (<40) U/L ALT 21 19 (<40) U/L Alkaline Phosphatase 60 54 (39-117) U/L Total Protein 5.7 L 5.2 L (5.9-8.4) gm/dL Albumin 3.8 3.3 (3.2-5.2) gm/dL All other labs normal. A/P Assessment and plan (1) Abdominal pain: Status: Acute Qualifiers: Abdominal location: generalized Qualified Code(s): R10.84 - Generalized abdominal pain (2) Musculoskeletal chest pain: Status: Acute Narrative A/P Narrative: the patient's clinical history is somewhat altered by the variable response that he is given each examiner. The finding of small stones in a very short cystic duct remnant without any elevation in alkaline phosphatase is probably of no clinical significance. It is unlikely that there is enough pressure generated by the small remnant to cause any type of biliary colic. His history of diverticulitis can be dismissed since follow-up CT does not confirm that there is any inflammation in the descending or sigmoid colon. Most of his discomfort is epigastric and left upper quadrant rather than the left lower quadrant. He has fairly prominent tenderness of the lower costal cartilages extending posteriorly to the CVA region. I query whether or not this is an area of his discomfort rather than right sided discomfort. He specifically does not have any left lower quadrant findings at this time. In view of the stable hemoglobin and hematocrit over a 2 day interim, it is unlikely that he has a significant upper or lower GI bleed and I will leave it up to GI as to whether or not they think he may still have full endoscopic evaluation. I would recommend left rib cage films and check sedimentation rate and CPK. Unless some other entity can be found I think simple treatment of his musculoskeletal discomfort may be sufficient. Time Spent With Patient Time: Total time spent is greater than 50% in coordination of care (as documented) at patient's floor/unit and/or counseling patient:
[2020-08-24] MEDS: PANTOPRAZOLE 40 MG VIAL IV SCH (17:20)
--- NOTE | 2020-08-24 17:55 | Cat Scan Report ---
INDICATION: Possible rib injury COMPARISON: Abdominal CT scan dated 08/23/2020 TECHNIQUE: Axial noncontrast enhanced images through the chest. Sagittally and coronally reformatted images. MIP reformatted images. FINDINGS: Lungs:Lung bases are abnormal. There is interlobular septal thickening. There may be mild honeycombing. 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 No focal parenchymal consolidation. No discrete mass. There is no pleural fluid. Mediastinum, vascular:No pathologic mediastinal or hilar adenopathy There is calcification of the thoracic aorta. Thoracic aorta is otherwise negative. No aneurysmal dilatation Heart:There is a least mild calcified coronary artery disease. There is mitral annular calcification. There is no pericardial effusion Pleura:No pleural effusion. No pleural-based mass. No pleural calcification Axilla, supraclavicular regions, chest wall:No axillary or supraclavicular adenopathy. There are nonacute right rib fractures. There are healed fractures of the right third, fourth, fifth ribs. No acute fractures. No lytic lesions. There is a nonacute left 10th rib fracture. Musculoskeletal:No thoracic compression fractures. No lytic lesions. Upper Abdomen:Upper abdomen is unchanged since prior examination dated 08/23/2020. Again demonstrated is a small gallbladder or gallbladder remnant with calcified stone or stones. There is right renal atrophy. There is a densely calcified right renal artery with probable high-grade stenosis. There is calcification at the origin of the superior mesenteric artery. Hemodynamically significant stenosis is likely. Clinical correlation for symptoms of mesenteric angina recommended. IMPRESSION: 1. No acute rib fractures. Chronic healed rib fractures as above 2. Abnormal lung bases. 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 Right renal atrophy and right renal artery stenosis 4. 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 Recommend clinical correlation for mesenteric ischemia The exam was performed using radiation dose optimization techniques including, but not limited to, automated exposure control, adjustment of the mA and/or kV according to patient size and use of iterative reconstruction technique. Interpreted and Authenticated by: Daniel Durham 08/24/20
[2020-08-24] MEDS: SENNOSIDES/DOCUSATE SODIUM 1 TAB TABLET PO SCH (21:07)
[2020-08-24] MEDS: DOCUSATE SODIUM 100 MG CAPSULE PO SCH (21:07)
[2020-08-24] MEDS: MELATONIN 3 MG TABLET PO PRN (21:48)
[2020-08-25] MEDS: 0.9 % SODIUM CHLORIDE 10 ML SYRINGE IV SCH ×3 (05:05→20:11)
[2020-08-25] MEDS: PANTOPRAZOLE 40 MG VIAL IV SCH ×2 (07:14→17:17)
[2020-08-25] MEDS: DOCUSATE SODIUM 100 MG CAPSULE PO SCH ×2 (08:28→20:11)
[2020-08-25] MEDS: MULTIVIT,THER IRON,CA,FA & MIN 1 TABLET PO SCH (08:45)
[2020-08-25 08:47] LABS: ALT/SGPT 17 U/L (<40); AST/SGOT 35 U/L (<40); Albumin 2.9 gm/dL (3.2-5.2); Albumin/Globulin Ratio 1.5 (1.0-2.3); Alkaline Phosphatase 48 U/L (39-117); Bilirubin,Direct 0.2 mg/dL (<0.3); Bilirubin,Total 1.6 mg/dL (0.1-1.0); Blood Urea Nitrogen 16 mg/dL (8-23); Calcium 7.4 mg/dL (8.6-10.4); Carbon Dioxide 16 mmol/L (22-30); Chloride 107 mmol/L (96-108); Glomerular Filtration Rate 60; Glucose 108 mg/dL (70-105); Lactate Dehydrogenase 291 U/L (135-225); Phosphorous 1.4 mg/dL (2.5-4.5); Triglycerides 93 mg/dL (<150); Uric Acid 5.6 mg/dL (2.5-8.0)
--- NOTE | 2020-08-25 09:04 | Internal Med Progress Note ---
SUBJECTIVE Subjective Patient information: Note initiated : 08/25/20 at 9:01 am Service Date, if different from initiated Date: [] Patient: Torrey Castro 85 y/o M admitted on 08/24/20 for abdominal pain. Chief Complaint: Mr. Castro is a 85 year old M resents to the ER second time in 24 hours with persistent mid upper and right-sided abdominal pain along associated diarrhea. Patient was evaluated at his primary care physician's office and underwent CT scan that was suggestive of diverticulitis. He was started on Flagyl and ciprofloxacin on the however symptoms continued to worsen with increasing nausea abdominal discomfort worsening with food. He presented again yesterday. Initial work-up was consistent with intrahepatic and common bile duct dilatation due to a 1 cm perioperative diverticulum obstructing both ducts. Subsequently GI at [place] was consulted however due to lack of availability of beds patient was kept overnight. Patient subsequent underwent MRCP that did not show any evidence of choledocho lithiasis. Subsequently hospitalist service was consulted. Patient was also noticed to have potassium 2.7 for which he was started on replacement. He was noted to have black stools for which GI was consulted and recommended hospitalization/PPI . Thereafter hospital service was consulted for admission The time of my evaluation patient is in moderate discomfort endorses to 6 out of 10 to 8 out of 10 mid abdominal pain. Denies associated fever, shaking chills, jaundice, dysuria endorses to 2-3 episodes of loose stools. He also denies loss of appetite. Patient denies changes in medication, sick contacts. He denies recent trauma, fall, bruising. 08/25-patient doing a lot better overnight. Pain in good control. Denies diarrhea. No nausea vomiting. Currently on PPI. Hemoglobin 10.4., INR 1.2, potassium improved to 3.6, phosphorus 1.4, initiate replacement. Surgery on board. CT chest no evidence of musculo- skeletal trauma/fractures Constitutional Vitals: Vital Signs Temp Pulse Resp BP Pulse Ox 96.8 F L 65 15 151/87 97 08/25/20 08:50 08/25/20 03:01 08/25/20 08:04 08/25/20 08:01 08/25/20 08:04 Period Temp Pulse Resp BP Sys/Crespo Pulse Ox Last 24 Hr 96.8 F-98.4 F 65-116 14-25 123-200/50-105 90-100 Intake and Output 08/24/20 08/25/20 08/25/20 21:59 05:59 13:59 Intake Total 520 365 90 Output Total 0 175 200 Balance 520 190 -110 Weight 63.276 kg Alert oriented Nondistended minimally tender abdomen No lymphedema Intake & Output: Intake & Output 08/24/20 08/25/20 08/25/20 21:59 05:59 13:59 Intake Total 520 365 90 Output Total 0 175 200 Balance 520 190 -110 Weight 63.276 kg Intake: IV 520 65 Potassium Chloride 40 Meq In 520 Dextrose 5% in Water 500 ml @ 130 mls/hr IV UD PRN Rx#: [id number] Oral 0 300 90 Output: Void Amount 0 175 200 Other: Meal Dinner Breakfast Percent of Meal Consumed 10 Jello Feeding Ability Assist with Tray Set Up Independent Urine Appearance Clear Clear Urine Color Dark Yellow Light Jenelle Urine Odor Normal Stool Size Small Stool Color Brown Stool Consistency Loose # Bowel Movements 1 0 # of times incontinent of 0 Bowels OBJ DATA Labs CBC & Chem 7: 08/25/20 00:08 08/25/20 04:34 Labs: Abnormal Lab Results 08/25/20 08/25/20 08/24/20 04:34 00:08 20:05 WBC RBC Hgb 10.4 L 11.1 L Hct Neut % (Auto) Lymph % (Auto) Lymph # (Auto) [place] # (Auto) Absolute Neutrophils ESR PT INR Potassium Carbon Dioxide 16 L Anion Gap Glucose 108 H Calcium 7.4 L Phosphorus 1.4 L Total Bilirubin 1.6 H Lactate Dehydrogenase 291 H Total Creatine Kinase Total Protein 4.9 L Albumin 2.9 L Globulin 2.0 L Urine Ketones Urine RBC 08/24/20 08/24/20 08/24/20 16:03 16:03 14:20 WBC RBC Hgb 12.0 L Hct Neut % (Auto) Lymph % (Auto) Lymph # (Auto) [place] # (Auto) Absolute Neutrophils ESR 60 H PT 15.3 H INR 1.2 H Potassium Carbon Dioxide Anion Gap Glucose Calcium Phosphorus Total Bilirubin Lactate Dehydrogenase Total Creatine Kinase Total Protein Albumin Globulin Urine Ketones Urine RBC 08/24/20 08/24/20 08/24/20 13:48 07:58 07:58 WBC 12.8 H RBC 3.81 L Hgb 12.0 L Hct 33.4 L Neut % (Auto) 83.3 H Lymph % (Auto) 6.1 L Lymph # (Auto) 0.78 L [place] # (Auto) 1.13 H Absolute Neutrophils 10.63 H ESR PT INR Potassium 2.7 L* Carbon Dioxide 19 L Anion Gap Glucose 134 H Calcium 7.7 L Phosphorus Total Bilirubin 1.5 H Lactate Dehydrogenase Total Creatine Kinase 362 H Total Protein 5.2 L Albumin Globulin 1.9 L Urine Ketones Urine RBC 08/23/20 08/23/20 08/23/20 21:26 19:07 16:42 WBC RBC Hgb Hct Neut % (Auto) Lymph % (Auto) Lymph # (Auto) [place] # (Auto) Absolute Neutrophils ESR PT 14.7 H INR Potassium 2.9 L* Carbon Dioxide 17 L Anion Gap 17.0 H Glucose 129 H Calcium 8.5 L Phosphorus Total Bilirubin 1.7 H Lactate Dehydrogenase Total Creatine Kinase Total Protein 5.7 L Albumin Globulin 1.9 L Urine Ketones 20 A Urine RBC 2 H 08/23/20 16:42 WBC RBC 3.97 L Hgb 12.5 L Hct 35.0 L Neut % (Auto) 83.3 H Lymph % (Auto) 8.2 L Lymph # (Auto) 0.77 L [place] # (Auto) Absolute Neutrophils ESR PT INR Potassium Carbon Dioxide Anion Gap Glucose Calcium Phosphorus Total Bilirubin Lactate Dehydrogenase Total Creatine Kinase Total Protein Albumin Globulin Urine Ketones Urine RBC Meds: Medications Acetaminophen (Tylenol) 650 mg PO Q4-6HP PRN; Protocol PRN Reason: Per Pain Protocol/Fever > 101 Bisacodyl (Dulcolax) 10 mg [place] Q2-3DAYS PRN PRN Reason: Constipation Docusate Sodium (Colace) 100 mg PO BID [facility] Last Admin: 08/25/20 08:28 Dose: Not Given Documented by: Hydromorphone HCl (Dilaudid) 0.25 - 0.5 mg IV Q4HP PRN; Protocol PRN Reason: Per Pain Protocol Last Admin: 08/24/20 22:13 Dose: 0.5 mg Documented by: Potassium Chloride 40 meq/ (Dextrose) 520 mls @ 130 mls/hr IV UD PRN PRN Reason: K+ = or < 3.5 Last Infusion: 08/24/20 19:30 Dose: Infused Documented by: Acetaminophen (Ofirmev) 650 mg in 65 mls @ 130 mls/hr IV Q6HP PRN; Protocol PRN Reason: Per Pain Protocol/Fever > 101 Last Infusion: 08/25/20 01:32 Dose: Infused Documented by: Magnesium Sulfate (Magnesium Sulfate) 2 gm in 50 mls @ 50 mls/hr IV UD PRN PRN Reason: MG = or < 1.7 Sodium Chloride (Sodium Chloride 0.9%) 1,000 mls @ 50 mls/hr IV .Q20H [facility] Stop: 08/27/20 02:12 Last Admin: 08/24/20 14:27 Dose: 50 mls/hr Documented by: Iron Carb/Multivit/Disposal Man/Folic Acid (Multivitamin W/Minerals) 1 tab PO DAILY [facility] Last Admin: 08/25/20 08:45 Dose: 1 tab Documented by: Melatonin (Melatonin 3mg Tablet) 3 mg PO HSP PRN PRN Reason: Insomnia Last Admin: 08/24/20 21:48 Dose: 3 mg Documented by: Ondansetron HCl (Zofran Odt) 4 mg SL Q4-6HP PRN; Protocol PRN Reason: Nausea And Vomiting Ondansetron HCl (Zofran) 4 mg IV Q4-6HP PRN; Protocol PRN Reason: Nausea And Vomiting Pantoprazole Sodium (Protonix) 40 mg IV BIDAC [facility] Last Admin: 08/25/20 07:14 Dose: 40 mg Documented by: Polyethylene Glycol (Miralax) 17 gm PO DAILYP PRN PRN Reason: Constipation Potassium Chloride (Klor-Con) 40 meq PO DAILYP PRN PRN Reason: K+ < 3.5 Senna/Docusate Sodium (Senna Plus Tablet) 1 tab PO HS [facility] Last Admin: 08/24/20 21:07 Dose: Not Given Documented by: Sodium Chloride (Saline Flush) 10 ml IV Q8 [facility] Last Admin: 08/25/20 05:05 Dose: Not Given Documented by: A/P Assessment and plan (1) Abdominal pain: Status: Acute Qualifiers: Abdominal location: generalized Qualified Code(s): R10.84 - Generalized abdominal pain (2) Musculoskeletal chest pain: Status: Acute Narrative A/P Narrative: * Abdominal pain unclear etiology. Clinical improvement noted over last 12 hours. Continue conservative management/analgesics with bowel rest and crystalloids. Extensive imaging negative for acute process. No evidence of ischemic bowel. Surgery on board * Dark stools possible upper GI bleed. GI consult., PPI, n.p.o. every 4 hemoglobin checks. Hemoglobin down to 10.4. Continue monitoring. * Hypokalemia improved to 3.6 with replacement. * Low phosphorus start replacement * Prophylaxis SCDs Plan * Continue PPI * If worsening hemoglobin GI consult for upper endoscopy * Phosphorus replacement * Directed therapies Time Spent With Patient Time: Total time spent is greater than 50% in coordination of care (as documented) at patient's floor/unit and/or counseling patient: QUALITY VTE Deep Vein Thrombosis/Pulmonary Embolism Present on Admission: No
[2020-08-25 09:08] LABS: Eosinophils % (Manual) 1 % (0-7); Hematocrit 31.5 % (41.0-55.0); Hemoglobin 10.7 g/dL (13.5-16.5); Lymphocytes % 12 % (15-49); Mean Cell Volume 92.1 fL (80.0-100.0); Mean Platelet Volume 9.3 fL (7.4-10.4); Monocytes % (Manual) 10 % (1-12); Platelet Count 163 K/mcL (140-440); Platelet Estimate NORMAL (Normal); RBC 3.42 M/mcL (4.50-5.90); RBC Morphology NORMAL (Normal); Red Cell Distribution Width 13.2 % (11.5-14.5); Segmented Neutrophils % 77 % (38-78); WBC 8.4 K/mcL (4.5-11.0)
[2020-08-25] MEDS: 0.9 % SODIUM CHLORIDE 1,000 ML IV SCH (11:19)
--- NOTE | 2020-08-25 13:33 | General Surgery Progress Note ---
SUBJECTIVE Subjective Patient information: Note initiated : 08/25/20 at 1:28 pm Service Date, if different from initiated Date: [] Patient: Torrey Castro 85 y/o M admitted on 08/24/20 for abdominal pain. Chief Complaint: [] Principal diagnosis: left upper quadrant and left lateral rib cage pain Interval history: patient states that he feels much better. He denies abdominal pain at this time. He denies nausea. He still has mild left posterolateral rib cage pain. CT of chest reveals old fractures but no acute fractures. White blood count 8.4, hemoglobin 10.7, hematocrit 31.5, potassium 3.6, BUN 16, creatinine 1.1, phosphorus 1.4, sedimentation rate 60, CK 362 Constitutional Vitals: Vital Signs Temp Pulse Resp BP Pulse Ox 98.9 F 65 17 159/58 98 08/25/20 10:00 08/25/20 03:01 08/25/20 12:01 08/25/20 12:01 08/25/20 12:01 Period Temp Pulse Resp BP Sys/Crespo Pulse Ox Last 24 Hr 96.8 F-98.9 F 65-89 14-25 123-177/50-100 90-100 Intake and Output 08/24/20 08/25/20 08/25/20 21:59 05:59 13:59 Intake Total 522 063 4356 Output Total 0 175 200 Balance 520 190 890 Weight 139 lb 8 oz Intake & Output: Intake & Output 08/24/20 08/25/20 08/25/20 21:59 05:59 13:59 Intake Total 547 233 3138 Output Total 0 175 200 Balance 520 190 890 Weight 139 lb 8 oz Intake: IV 504 01 8561 Sodium Chloride 0.9% 1,000 ml @ 1000 50 mls/hr IV .Q20H [facility] Rx#: [id number] Potassium Chloride 40 Meq In 520 Dextrose 5% in Water 500 ml @ 130 mls/hr IV UD PRN Rx#: [id number] Oral 0 300 90 Output: Void Amount 0 175 200 Other: Meal Dinner Breakfast Percent of Meal Consumed 10 Jello Feeding Ability Assist with Tray Set Up Independent Urine Appearance Clear Clear Urine Color Dark Yellow Light Jenelle Urine Odor Normal Stool Size Small Moderate Stool Color Brown Brown Green Stool Consistency Loose Watery Loose # Bowel Movements 1 0 1 # of times incontinent of 0 Bowels Neck Neck exam: Present full ROM; Absent tenderness Respiratory Respiratory exam: Present normal respiratory exam and CTAB; Absent rales, rhonchi and wheezes Additional comments: mild tenderness of posterolateral rib cage on the left Cardiovascular Cardiovascular exam: Present normal rate and rhythm, RRR, +S1 and +S2; Absent JVD GI/Abdominal GI/Abdominal exam: Present normal bowel sounds and soft; Absent distended, guarding and mass Extremities Exam Extremities exam: Present normal inspection; Absent tenderness Back Exam Back exam: Present normal inspection; Absent tenderness Neurological Exam Neurological exam: Present alert, CN II-XII intact, oriented X3 and reflexes normal; Absent motor sensory deficit Psychiatric Psychiatric exam: Present normal affect and normal mood A/P Assessment and plan (1) Musculoskeletal chest pain: Status: Acute (2) Abdominal pain: Status: Acute Qualifiers: Abdominal location: generalized Qualified Code(s): R10.84 - Generalized abdominal pain Narrative A/P Narrative: continue to treat for musculoskeletal pain I do not see any reason for further investigation of abdominal complaints. Time Spent With Patient Time: Total time spent is greater than 50% in coordination of care (as documented) at patient's floor/unit and/or counseling patient:
[2020-08-25] MEDS: NEUTRA PHOS 1 PACKET PO SCH (20:11)
[2020-08-25] MEDS: SENNOSIDES/DOCUSATE SODIUM 1 TAB TABLET PO SCH (20:11)
[2020-08-25] MEDS: MELATONIN 3 MG TABLET PO PRN (20:12)
[2020-08-26] MEDS ORDERED: HYDROCODONE/APAP 7.5/325MG TABLET PO PRN (04:21)
[2020-08-26] MEDS ORDERED: HYDROCODONE/APAP 7.5/325MG TABLET PO ONE (04:30)
[2020-08-26] MEDS: 0.9 % SODIUM CHLORIDE 10 ML SYRINGE IV SCH ×3 (05:37→22:30)
[2020-08-26 06:55] LABS: ALT/SGPT 17 U/L (<40); AST/SGOT 28 U/L (<40); Albumin 3.2 gm/dL (3.2-5.2); Albumin/Globulin Ratio 1.8 (1.0-2.3); Alkaline Phosphatase 49 U/L (39-117); Bilirubin,Direct 0.3 mg/dL (<0.3); Bilirubin,Total 1.6 mg/dL (0.1-1.0); Blood Urea Nitrogen 14 mg/dL (8-23); Calcium 7.5 mg/dL (8.6-10.4); Carbon Dioxide 20 mmol/L (22-30); Chloride 106 mmol/L (96-108); Globulin 1.8 gm/dL (2.2-3.7); Glomerular Filtration Rate 68; Glucose 114 mg/dL (70-105); Lactate Dehydrogenase 263 U/L (135-225); Phosphorous 1.7 mg/dL (2.5-4.5); Triglycerides 104 mg/dL (<150); Uric Acid 5.2 mg/dL (2.5-8.0)
--- NOTE | 2020-08-26 06:55 | XRay Report ---
INDICATION: Chest pain TECHNIQUE: AP portable upright chest x-ray COMPARISON: Previous chest CT scan dated 08/24/2020 FINDINGS: Lungs:Lungs are negative. No focal pulmonary parenchymal infiltrate or mass Heart, vascular:No significant cardiomegaly. Pulmonary vascularity is normal. No pulmonary edema or pulmonary congestion Mediastinum, shlomo:No mediastinal widening. No hilar mass Pleura:No pleural fluid. No pleural-based mass or calcification Skeletal:Negative. IMPRESSION: 1. No acute or focal abnormality 2. No interval change 08/24/2020 Interpreted and Authenticated by: Daniel Durham 08/26/20
[2020-08-26] MEDS: 0.9 % SODIUM CHLORIDE 1,000 ML IV SCH (07:10)
[2020-08-26] MEDS: PANTOPRAZOLE 40 MG VIAL IV SCH ×2 (07:10→16:45)
[2020-08-26] MEDS: POTASSIUM CHLORIDE 40 MEQ in DEXTROSE 5% IN WATER 500 ML IV PRN (07:21)
[2020-08-26 08:23] LABS: Eosinophils % (Manual) 1 % (0-7); Hematocrit 29.7 % (41.0-55.0); Hemoglobin 10.4 g/dL (13.5-16.5); Lymphocytes % 18 % (15-49); Mean Cell Volume 89.2 fL (80.0-100.0); Mean Platelet Volume 9.5 fL (7.4-10.4); Monocytes % (Manual) 5 % (1-12); Platelet Count 175 K/mcL (140-440); Platelet Estimate NORMAL (Normal); RBC 3.33 M/mcL (4.50-5.90); RBC Morphology NORMAL (Normal); Red Cell Distribution Width 13.2 % (11.5-14.5); Segmented Neutrophils % 76 % (38-78); WBC 7.8 K/mcL (4.5-11.0)
[2020-08-26] MEDS: NEUTRA PHOS 1 PACKET PO SCH ×2 (09:24→22:29)
[2020-08-26] MEDS: MULTIVIT,THER IRON,CA,FA & MIN 1 TABLET PO SCH (09:24)
[2020-08-26] MEDS: DOCUSATE SODIUM 100 MG CAPSULE PO SCH ×2 (09:24→22:29)
--- NOTE | 2020-08-26 10:36 | Internal Med Progress Note ---
SUBJECTIVE Subjective Patient information: Note initiated : 08/26/20 at 10:32 am Service Date, if different from initiated Date: [] Patient: Torrey Castro a 85 y/o M admitted on 08/26/20 for abdominal pain. Chief Complaint: Mr. Castro is a 85 year old M resents to the ER second time in 24 hours with persistent mid upper and right-sided abdominal pain along associated diarrhea. Patient was evaluated at his primary care physician's office and underwent CT scan that was suggestive of diverticulitis. He was started on Flagyl and ciprofloxacin on the however symptoms continued to worsen with increasing nausea abdominal discomfort worsening with food. He presented again yesterday. Initial work-up was consistent with intrahepatic and common bile duct dilatation due to a 1 cm perioperative diverticulum obstructing both ducts. Subsequently GI at [place] was consulted however due to lack of availability of beds patient was kept overnight. Patient subsequent underwent MRCP that did not show any evidence of choledocho lithiasis. Subsequently hospitalist service was consulted. Patient was also noticed to have potassium 2.7 for which he was started on replacement. He was noted to have black stools for which GI was consulted and recommended hospitalization/PPI . Thereafter hospital service was consulted for admission The time of my evaluation patient is in moderate discomfort endorses to 6 out of 10 to 8 out of 10 mid abdominal pain. Denies associated fever, shaking chills, jaundice, dysuria endorses to 2-3 episodes of loose stools. He also denies loss of appetite. Patient denies changes in medication, sick contacts. He denies recent trauma, fall, bruising. 08/25-patient doing a lot better overnight. Pain in good control. Denies diarrhea. No nausea vomiting. Currently on PPI. Hemoglobin 10.4., INR 1.2, potassium improved to 3.6, phosphorus 1.4, initiate replacement. Surgery on board. CT chest no evidence of musculo- skeletal trauma/fractures 08/26-patient doing a lot better. Diarrhea resolved. Abdominal pain resolved. However potassium 2.6/phosphorus 1.5 on replacement. Intermittent telemetry cardiac rhythm abnormality secondary to electrolyte derangement. Continue aggressive replacement. Continue PT OT. Principal diagnosis: left upper quadrant and left lateral rib cage pain Constitutional Vitals: Vital Signs Temp Pulse Resp BP Pulse Ox 97.7 F 55 L 20 172/83 100 08/26/20 08:01 08/26/20 01:32 08/26/20 08:22 08/26/20 08:01 08/26/20 08:22 Period Temp Pulse Resp BP Sys/Crespo Pulse Ox Last 24 Hr 97.7 F-99.5 F 54-81 11-26 129-179/51-83 87-100 Intake and Output 08/25/20 08/26/20 08/26/20 21:59 05:59 13:59 Intake Total 120 250 993 Output Total 251 250 Balance -131 0 993 Weight 65.136 kg Alert oriented No anxiety nondistended nontender abdomen Intake & Output: Intake & Output 08/25/20 08/26/20 08/26/20 21:59 05:59 13:59 Intake Total 120 250 993 Output Total 251 250 Balance -131 0 993 Weight 65.136 kg Intake: IV 993 Sodium Chloride 0.9% 1,000 ml @ 993 50 mls/hr IV .Q20H [facility] Rx#: [id number] Oral 120 250 Output: Void Amount 250 250 # of times incontinent of urine 1 Other: Meal Dinner Breakfast Percent of Meal Consumed 25% 50% Feeding Ability Independent Urine Appearance Clear Clear Urine Color Dark Yellow Dark Yellow Stool Size Small Small Stool Color Brown Brown Green Stool Consistency Loose # Voids 1 # Bowel Movements 2 # of times incontinent of 1 Bowels OBJ DATA Labs CBC & Chem 7: 08/26/20 04:36 08/26/20 04:36 Labs: Abnormal Lab Results 08/26/20 08/26/20 08/25/20 04:36 04:36 04:34 WBC RBC 3.33 L Hgb 10.4 L Hct 29.7 L Neut % (Auto) Lymph % (Auto) Lymph # (Auto) [place] # (Auto) Lymphocytes % Absolute Neutrophils ESR PT INR Potassium 2.6 L* Carbon Dioxide 20 L 16 L Anion Gap Glucose 114 H 108 H Calcium 7.5 L 7.4 L Phosphorus 1.7 L 1.4 L Total Bilirubin 1.6 H 1.6 H Direct Bilirubin 0.3 H Lactate Dehydrogenase 263 H 291 H Total Creatine Kinase Total Protein 5.0 L 4.9 L Albumin 2.9 L Globulin 1.8 L 2.0 L Urine Ketones Urine RBC 08/25/20 08/25/20 08/24/20 04:34 00:08 20:05 WBC RBC 3.42 L Hgb 10.7 L 10.4 L 11.1 L Hct 31.5 L Neut % (Auto) Lymph % (Auto) Lymph # (Auto) [place] # (Auto) Lymphocytes % 12 L Absolute Neutrophils ESR PT INR Potassium Carbon Dioxide Anion Gap Glucose Calcium Phosphorus Total Bilirubin Direct Bilirubin Lactate Dehydrogenase Total Creatine Kinase Total Protein Albumin Globulin Urine Ketones Urine RBC 08/24/20 08/24/20 08/24/20 16:03 16:03 14:20 WBC RBC Hgb 12.0 L Hct Neut % (Auto) Lymph % (Auto) Lymph # (Auto) [place] # (Auto) Lymphocytes % Absolute Neutrophils ESR 60 H PT 15.3 H INR 1.2 H Potassium Carbon Dioxide Anion Gap Glucose Calcium Phosphorus Total Bilirubin Direct Bilirubin Lactate Dehydrogenase Total Creatine Kinase Total Protein Albumin Globulin Urine Ketones Urine RBC 08/24/20 08/24/20 08/24/20 13:48 07:58 07:58 WBC 12.8 H RBC 3.81 L Hgb 12.0 L Hct 33.4 L Neut % (Auto) 83.3 H Lymph % (Auto) 6.1 L Lymph # (Auto) 0.78 L [place] # (Auto) 1.13 H Lymphocytes % Absolute Neutrophils 10.63 H ESR PT INR Potassium 2.7 L* Carbon Dioxide 19 L Anion Gap Glucose 134 H Calcium 7.7 L Phosphorus Total Bilirubin 1.5 H Direct Bilirubin Lactate Dehydrogenase Total Creatine Kinase 362 H Total Protein 5.2 L Albumin Globulin 1.9 L Urine Ketones Urine RBC 08/23/20 08/23/20 08/23/20 21:26 19:07 16:42 WBC RBC Hgb Hct Neut % (Auto) Lymph % (Auto) Lymph # (Auto) [place] # (Auto) Lymphocytes % Absolute Neutrophils ESR PT 14.7 H INR Potassium 2.9 L* Carbon Dioxide 17 L Anion Gap 17.0 H Glucose 129 H Calcium 8.5 L Phosphorus Total Bilirubin 1.7 H Direct Bilirubin Lactate Dehydrogenase Total Creatine Kinase Total Protein 5.7 L Albumin Globulin 1.9 L Urine Ketones 20 A Urine RBC 2 H 08/23/20 16:42 WBC RBC 3.97 L Hgb 12.5 L Hct 35.0 L Neut % (Auto) 83.3 H Lymph % (Auto) 8.2 L Lymph # (Auto) 0.77 L [place] # (Auto) Lymphocytes % Absolute Neutrophils ESR PT INR Potassium Carbon Dioxide Anion Gap Glucose Calcium Phosphorus Total Bilirubin Direct Bilirubin Lactate Dehydrogenase Total Creatine Kinase Total Protein Albumin Globulin Urine Ketones Urine RBC Meds: Medications Acetaminophen (Tylenol) 650 mg PO Q4-6HP PRN; Protocol PRN Reason: Per Pain Protocol/Fever > 101 Last Admin: 08/25/20 09:31 Dose: 650 mg Documented by: Hydrocodone Bitart/Acetaminophen ([place] 7.5/325mg) 1 tab PO Q4-6HP PRN; Protocol PRN Reason: Per Pain Protocol Bisacodyl (Dulcolax) 10 mg [place] Q2-3DAYS PRN PRN Reason: Constipation Docusate Sodium (Colace) 100 mg PO BID [facility] Last Admin: 08/26/20 09:24 Dose: 100 mg Documented by: Hydromorphone HCl (Dilaudid) 0.25 - 0.5 mg IV Q4HP PRN; Protocol PRN Reason: Per Pain Protocol Last Admin: 08/24/20 22:13 Dose: 0.5 mg Documented by: Potassium Chloride 40 meq/ (Dextrose) 520 mls @ 130 mls/hr IV UD PRN PRN Reason: K+ = or < 3.5 Last Admin: 08/26/20 07:21 Dose: 130 mls/hr Documented by: Acetaminophen (Ofirmev) 650 mg in 65 mls @ 130 mls/hr IV Q6HP PRN; Protocol PRN Reason: Per Pain Protocol/Fever > 101 Last Infusion: 08/25/20 01:32 Dose: Infused Documented by: Magnesium Sulfate (Magnesium Sulfate) 2 gm in 50 mls @ 50 mls/hr IV UD PRN PRN Reason: MG = or < 1.7 Last Infusion: 08/25/20 10:22 Dose: Infused Documented by: Sodium Chloride (Sodium Chloride 0.9%) 1,000 mls @ 50 mls/hr IV .Q20H [facility] Stop: 08/27/20 02:12 Last Admin: 08/26/20 07:10 Dose: 50 mls/hr Documented by: Iron Carb/Multivit/[place]/Folic Acid (Multivitamin W/Minerals) 1 tab PO DAILY [facility] Last Admin: 08/26/20 09:24 Dose: 1 tab Documented by: Melatonin (Melatonin 3mg Tablet) 3 mg PO HSP PRN PRN Reason: Insomnia Last Admin: 08/25/20 20:12 Dose: 3 mg Documented by: Ondansetron HCl (Zofran Odt) 4 mg SL Q4-6HP PRN; Protocol PRN Reason: Nausea And Vomiting Ondansetron HCl (Zofran) 4 mg IV Q4-6HP PRN; Protocol PRN Reason: Nausea And Vomiting Pantoprazole Sodium (Protonix) 40 mg IV BIDAC [facility] Last Admin: 08/26/20 07:10 Dose: 40 mg Documented by: Polyethylene Glycol (Miralax) 17 gm PO DAILYP PRN PRN Reason: Constipation Potassium Chloride (Klor-Con) 40 meq PO DAILYP PRN PRN Reason: K+ < 3.5 Last Admin: 08/26/20 09:23 Dose: 40 meq Documented by: Potassium/Phosphorus/Sodium (Neutra Phos) 2 packet PO BID [facility] Last Admin: 08/26/20 09:24 Dose: 2 packet Documented by: Senna/Docusate Sodium (Senna Plus Tablet) 1 tab PO HS [facility] Last Admin: 08/25/20 20:11 Dose: Not Given Documented by: Sodium Chloride (Saline Flush) 10 ml IV Q8 [facility] Last Admin: 08/26/20 05:37 Dose: Not Given Documented by: A/P Narrative A/P Narrative: * Abdominal pain-clinically resolved. Extensive abdominal imaging including CT/ultrasound/MRCP negative for acute process. No evidence of ischemic bowel. Possibly musculoskeletal as evident from elevated CK/LDH. * Dark stools possible upper GI bleed. Hemoglobin stable. Resolved with PPI * Hypokalemia 2.6 continue replacement * Low phosphorus continue replacement * Prophylaxis SCDs Plan * Continue PPI * Electrolyte replacement as indicated * Nutrition support/PT OT * Transition to inpatient status * Discharge planning Time Spent With Patient Time: Total time spent is greater than 50% in coordination of care (as documented) at patient's floor/unit and/or counseling patient: Total time spent with greater than 50% in coordination of care (as documented) at patient's floor/unit and/or counseling patient:: Greater than 35 minutes QUALITY VTE Deep Vein Thrombosis/Pulmonary Embolism Present on Admission: No
[2020-08-26 11:13] LABS: POC Blood Urea Nitrogen 13 mg/dL (6-20); POC CO2 20 mmol/L (22-30); POC Calcium, Ionized 1.05 mmEq/L (1.16-1.32); POC Chloride 105 mEq/L (96-108); POC Glucose, Random 158 mg/dL (70-105); POC Hematocrit 28 % (41-55); POC Potassium 3.6 mEql/L (3.3-5.1); POC Sodium 137 mEq/L (133-145)
--- NOTE | 2020-08-26 13:36 | General Surgery Progress Note ---
SUBJECTIVE Subjective Patient information: Note initiated : 08/26/20 at 1:31 pm Service Date, if different from initiated Date: [] Patient: Torrey Castro 85 y/o M admitted on 08/26/20 for abdominal pain. Chief Complaint: [] Principal diagnosis: left upper quadrant and left lateral rib cage pain Interval history: patient continues to improve. He states that he no longer has any left-sided chest pain or left upper quadrant pain. He denies left CVA pain. He is tolerating diet without difficulty. He has no dyspnea or shortness of breath. Constitutional Vitals: Vital Signs Temp Pulse Resp BP Pulse Ox 97.4 F 55 L 13 150/53 97 08/26/20 12:01 08/26/20 01:32 08/26/20 12:01 08/26/20 12:01 08/26/20 12:01 Period Temp Pulse Resp BP Sys/Crespo Pulse Ox Last 24 Hr 97.4 F-99.5 F 54-81 11-26 129-179/51-83 87-100 Intake and Output 08/25/20 08/26/20 08/26/20 21:59 05:59 13:59 Intake Total 120 250 993 Output Total 251 250 175 Balance -131 0 818 Weight 143 lb 9.6 oz Intake & Output: Intake & Output 08/25/20 08/26/20 08/26/20 21:59 05:59 13:59 Intake Total 120 250 993 Output Total 251 250 175 Balance -131 0 818 Weight 143 lb 9.6 oz Intake: IV 993 Sodium Chloride 0.9% 1,000 ml @ 993 50 mls/hr IV .Q20H [facility] Rx#: [id number] Oral 120 250 Output: Void Amount 250 250 175 # of times incontinent of urine 1 Other: Meal Dinner Breakfast Percent of Meal Consumed 25% 50% Feeding Ability Independent Urine Appearance Clear Clear Clear Urine Color Dark Yellow Dark Yellow Dark Yellow Urine Odor Normal Stool Size Small Small Large Stool Color Brown Brown Brown Green Stool Consistency Loose Soft # Voids 1 # Bowel Movements 2 1 # of times incontinent of 1 0 Bowels Head Head exam: Present atraumatic, normal inspection and normocephalic Eye Eye exam: Present EOMI and PERRL Pupils: Present normal accommodation ENT ENT exam: Present mucous membranes moist and normal exam Neck Neck exam: Present full ROM; Absent lymphadenopathy and tenderness Respiratory Respiratory exam: Present normal respiratory exam and CTAB; Absent rales, rhonchi and wheezes Cardiovascular Cardiovascular exam: Present normal rate and rhythm, RRR, +S1 and +S2; Absent gallop and JVD GI/Abdominal GI/Abdominal exam: Present normal bowel sounds and soft; Absent guarding Extremities Exam Extremities exam: Present full ROM, normal inspection and neurovascular intact Back Exam Back exam: Present normal inspection; Absent CVA tenderness (L) Neurological Exam Neurological exam: Present alert, CN II-XII intact, normal gait and oriented X3; Absent motor sensory deficit Psychiatric Psychiatric exam: Present normal affect and normal mood Skin Skin exam: Present normal color A/P Assessment and plan (1) Musculoskeletal chest pain: Status: Acute (2) Abdominal pain: Status: Acute Qualifiers: Abdominal location: generalized Qualified Code(s): R10.84 - Generalized abdominal pain Narrative A/P Narrative: patient is doing well and has recovered from his left chest wall and abdominal contusion. He has no abdominal complaints. Notified the hospitalist and I will sign off of his care for this admission. Time Spent With Patient Time: Total time spent is greater than 50% in coordination of care (as documented) at patient's floor/unit and/or counseling patient:
[2020-08-26] MEDS ORDERED: ONDANSETRON 4 MG ODT TABLET SL PRN (16:04)
[2020-08-26] MEDS ORDERED: HYDROmorphone 0.5 MG/0.5 ML SYRINGE IV PRN (16:04)
[2020-08-26] MEDS ORDERED: MAGNESIUM SULFATE 2 GM/50 ML BAG IV PRN (16:04)
[2020-08-26] MEDS ORDERED: POTASSIUM CHLORIDE 20 MEQ PACKET PO PRN (16:04)
[2020-08-26] MEDS ORDERED: BISACODYL 10 MG SUPP.RECT PR PRN (16:04)
[2020-08-26] MEDS ORDERED: ONDANSETRON 4 MG/2 ML VIAL IV PRN (16:04)
[2020-08-26] MEDS ORDERED: POLYETHYLENE GLYCOL 3350 17 GM PACKET PO PRN (16:04)
[2020-08-26] MEDS ORDERED: ACETAMINOPHEN 650 MG/65 ML BOTTLE IV PRN (16:04)
[2020-08-26] MEDS ORDERED: 0.9 % SODIUM CHLORIDE 1,000 ML IV SCH (16:04)
[2020-08-26] MEDS ORDERED: ACETAMINOPHEN 325 MG TABLET PO PRN (16:04)
[2020-08-26] MEDS ORDERED: POTASSIUM CHLORIDE 40 MEQ in DEXTROSE 5% IN WATER 500 ML IV PRN (16:04)
[2020-08-26] MEDS ORDERED: MELATONIN 3 MG TABLET PO PRN (21:00)
[2020-08-26] MEDS: SENNOSIDES/DOCUSATE SODIUM 1 TAB TABLET PO SCH (22:29)
[2020-08-27] MEDS: 0.9 % SODIUM CHLORIDE 10 ML SYRINGE IV SCH ×3 (05:11→20:35)
[2020-08-27 08:29] LABS: ALT/SGPT 16 U/L (<40); AST/SGOT 22 U/L (<40); Albumin 3.1 gm/dL (3.2-5.2); Albumin/Globulin Ratio 1.8 (1.0-2.3); Alkaline Phosphatase 47 U/L (39-117); Bilirubin,Direct 0.3 mg/dL (<0.3); Bilirubin,Total 1.7 mg/dL (0.1-1.0); Blood Urea Nitrogen 11 mg/dL (8-23); Calcium 7.6 mg/dL (8.6-10.4); Carbon Dioxide 22 mmol/L (22-30); Chloride 103 mmol/L (96-108); Globulin 1.7 gm/dL (2.2-3.7); Glomerular Filtration Rate 77; Glucose 99 mg/dL (70-105); Lactate Dehydrogenase 245 U/L (135-225); Phosphorous 1.9 mg/dL (2.5-4.5); Triglycerides 112 mg/dL (<150); Uric Acid 4.3 mg/dL (2.5-8.0)
[2020-08-27] MEDS ORDERED: POTASSIUM CHLORIDE 20 MEQ PACKET PO ONE ×3 (08:36→10:30)
[2020-08-27 08:53] LABS: Eosinophils % (Manual) 1 % (0-7); Hematocrit 27.7 % (41.0-55.0); Hemoglobin 10.1 g/dL (13.5-16.5); Lymphocytes % 16 % (15-49); Mean Cell Volume 86.8 fL (80.0-100.0); Mean Corpuscular HGB Conc 36.5 g/dL (31.0-36.0); Mean Platelet Volume 9.2 fL (7.4-10.4); Monocytes % (Manual) 6 % (1-12); Platelet Count 171 K/mcL (140-440); Platelet Estimate NORMAL (Normal); RBC 3.19 M/mcL (4.50-5.90); RBC Morphology NORMAL (Normal); Red Cell Distribution Width 12.5 % (11.5-14.5); Segmented Neutrophils % 77 % (38-78); WBC 6.2 K/mcL (4.5-11.0)
[2020-08-27] MEDS: PANTOPRAZOLE 40 MG VIAL IV SCH ×2 (08:59→16:51)
[2020-08-27] MEDS: NEUTRA PHOS 1 PACKET PO SCH ×2 (09:00→20:30)
[2020-08-27] MEDS: DOCUSATE SODIUM 100 MG CAPSULE PO SCH ×2 (09:00→20:33)
[2020-08-27] MEDS: MULTIVIT,THER IRON,CA,FA & MIN 1 TABLET PO SCH (09:03)
[2020-08-27] MEDS: HYDROCODONE/APAP 7.5/325MG TABLET PO PRN ×3 (09:04→19:05)
--- NOTE | 2020-08-27 10:11 | Internal Med Progress Note ---
SUBJECTIVE Subjective Patient information: Note initiated : 08/27/20 at 10:08 am Service Date, if different from initiated Date: [] Patient: Torrey Castro a 85 y/o M admitted on 08/26/20 for abdominal pain. Chief Complaint: Mr. Castro is a 85 year old M resents to the ER second time in 24 hours with persistent mid upper and right-sided abdominal pain along associated diarrhea. Patient was evaluated at his primary care physician's office and underwent CT scan that was suggestive of diverticulitis. He was started on Flagyl and ciprofloxacin on the however symptoms continued to worsen with increasing nausea abdominal discomfort worsening with food. He presented again yesterday. Initial work-up was consistent with intrahepatic and common bile duct dilatation due to a 1 cm perioperative diverticulum obstructing both ducts. Subsequently GI at [place] was consulted however due to lack of availability of beds patient was kept overnight. Patient subsequent underwent MRCP that did not show any evidence of choledocho lithiasis. Subsequently hospitalist service was consulted. Patient was also noticed to have potassium 2.7 for which he was started on replacement. He was noted to have black stools for which GI was consulted and recommended hospitalization/PPI . Thereafter hospital service was consulted for admission The time of my evaluation patient is in moderate discomfort endorses to 6 out of 10 to 8 out of 10 mid abdominal pain. Denies associated fever, shaking chills, jaundice, dysuria endorses to 2-3 episodes of loose stools. He also denies loss of appetite. Patient denies changes in medication, sick contacts. He denies recent trauma, fall, bruising. 08/25-patient doing a lot better overnight. Pain in good control. Denies diarrhea. No nausea vomiting. Currently on PPI. Hemoglobin 10.4., INR 1.2, potassium improved to 3.6, phosphorus 1.4, initiate replacement. Surgery on board. CT chest no evidence of musculo- skeletal trauma/fractures 08/26-patient doing a lot better. Diarrhea resolved. Abdominal pain resolved. However potassium 2.6/phosphorus 1.5 on replacement. Intermittent telemetry cardiac rhythm abnormality secondary to electrolyte derangement. Continue aggressive replacement. Continue PT OT. 08/27-patient clinically improving however persistent diarrhea. Check C. difficile. Stool studies. Hypokalemia despite replacement. Additional 80 mEq oral potassium replacement today. Continue Neutra-Phos. PT OT. Patient wants to go home with home health therapies. Ongoing physical therapy. Feels a lot better since admission. Principal diagnosis: left upper quadrant and left lateral rib cage pain Constitutional Vitals: Vital Signs Temp Pulse Resp BP Pulse Ox 98.5 F 69 22 148/76 98 08/27/20 07:38 08/27/20 09:25 08/27/20 07:38 08/27/20 07:38 08/27/20 07:38 Period Temp Pulse Resp BP Sys/Crespo Pulse Ox Last 24 Hr 97.4 F-98.8 F 62-69 13-24 148-172/53-76 93-98 Intake and Output 08/26/20 08/27/20 08/27/20 21:59 05:59 13:59 Intake Total 500 Output Total 300 600 Balance 200 -600 Weight 65.363 kg Nonlabored breathing No anxiety Nondistended abdomen Intake & Output: Intake & Output 08/26/20 08/27/20 08/27/20 21:59 05:59 13:59 Intake Total 500 Output Total 300 600 Balance 200 -600 Weight 65.363 kg Intake: Oral 500 Output: Void Amount 300 200 Urine/Stool Mix 275 Stool 125 Other: Meal Dinner Percent of Meal Consumed 25% Feeding Ability Independent Urine Appearance Cloudy Clear Urine Color Bright Yellow Bright Yellow Urine Odor Normal Stool Size Small Small Stool Color Brown Brown Stool Consistency Liquid Liquid Loose # Bowel Movements 1 # of times incontinent of 1 1 Bowels OBJ DATA Labs CBC & Chem 7: 08/27/20 05:50 08/27/20 05:50 Labs: Abnormal Lab Results 08/27/20 08/27/20 08/26/20 05:50 05:50 11:00 RBC 3.19 L Hgb 10.1 L Hct 27.7 L POC Hct 28 L MCHC 36.5 H Lymphocytes % ESR PT INR Potassium 2.8 L* Carbon Dioxide POC Total CO2 20 L Glucose POC Glucose 158 H Calcium 7.6 L POC WB Ioniz Calcium 1.05 L Phosphorus 1.9 L Total Bilirubin 1.7 H Direct Bilirubin 0.3 H Lactate Dehydrogenase 245 H Total Creatine Kinase Total Protein 4.8 L Albumin 3.1 L Globulin 1.7 L 08/26/20 08/26/20 08/25/20 04:36 04:36 04:34 RBC 3.33 L Hgb 10.4 L Hct 29.7 L POC Hct MCHC Lymphocytes % ESR PT INR Potassium 2.6 L* Carbon Dioxide 20 L 16 L POC Total CO2 Glucose 114 H 108 H POC Glucose Calcium 7.5 L 7.4 L POC WB Ioniz Calcium Phosphorus 1.7 L 1.4 L Total Bilirubin 1.6 H 1.6 H Direct Bilirubin 0.3 H Lactate Dehydrogenase 263 H 291 H Total Creatine Kinase Total Protein 5.0 L 4.9 L Albumin 2.9 L Globulin 1.8 L 2.0 L 08/25/20 08/25/20 08/24/20 04:34 00:08 20:05 RBC 3.42 L Hgb 10.7 L 10.4 L 11.1 L Hct 31.5 L POC Hct MCHC Lymphocytes % 12 L ESR PT INR Potassium Carbon Dioxide POC Total CO2 Glucose POC Glucose Calcium POC WB Ioniz Calcium Phosphorus Total Bilirubin Direct Bilirubin Lactate Dehydrogenase Total Creatine Kinase Total Protein Albumin Globulin 08/24/20 08/24/20 08/24/20 16:03 16:03 14:20 RBC Hgb 12.0 L Hct POC Hct MCHC Lymphocytes % ESR 60 H PT 15.3 H INR 1.2 H Potassium Carbon Dioxide POC Total CO2 Glucose POC Glucose Calcium POC WB Ioniz Calcium Phosphorus Total Bilirubin Direct Bilirubin Lactate Dehydrogenase Total Creatine Kinase Total Protein Albumin Globulin 08/24/20 13:48 RBC Hgb Hct POC Hct MCHC Lymphocytes % ESR PT INR Potassium Carbon Dioxide POC Total CO2 Glucose POC Glucose Calcium POC WB Ioniz Calcium Phosphorus Total Bilirubin Direct Bilirubin Lactate Dehydrogenase Total Creatine Kinase 362 H Total Protein Albumin Globulin Meds: Medications Acetaminophen (Tylenol) 650 mg PO Q4-6HP PRN; Protocol PRN Reason: Per Pain Protocol/Fever > 101 Hydrocodone Bitart/Acetaminophen ([place] 7.5/325mg) 1 tab PO Q4-6HP PRN; Protocol PRN Reason: Per Pain Protocol Last Admin: 08/27/20 09:04 Dose: 1 tab Documented by: Bisacodyl (Dulcolax) 10 mg FL Q2-3DAYS PRN PRN Reason: Constipation Docusate Sodium (Colace) 100 mg PO BID CONCHIS Last Admin: 08/27/20 09:00 Dose: Not Given Documented by: Hydromorphone HCl (Dilaudid) 0.25 - 0.5 mg IV Q4HP PRN; Protocol PRN Reason: Per Pain Protocol Acetaminophen (Ofirmev) 650 mg in 65 mls @ 130 mls/hr IV Q6HP PRN; Protocol PRN Reason: Per Pain Protocol/Fever > 101 Magnesium Sulfate (Magnesium Sulfate) 2 gm in 50 mls @ 50 mls/hr IV UD PRN PRN Reason: MG = or < 1.7 Potassium Chloride 40 meq/ (Dextrose) 520 mls @ 130 mls/hr IV UD PRN PRN Reason: K+ = or < 3.5 Iron Carb/Multivit/[place]/Folic Acid (Multivitamin W/Minerals) 1 tab PO DAILY S Last Admin: 08/27/20 09:03 Dose: 1 tab Documented by: Melatonin (Melatonin 3mg Tablet) 3 mg PO HSP PRN PRN Reason: Insomnia Ondansetron HCl (Zofran Odt) 4 mg SL Q4-6HP PRN; Protocol PRN Reason: Nausea And Vomiting Ondansetron HCl (Zofran) 4 mg IV Q4-6HP PRN; Protocol PRN Reason: Nausea And Vomiting Pantoprazole Sodium (Protonix) 40 mg IV BIDAC [facility] Last Admin: 08/27/20 08:59 Dose: 40 mg Documented by: Polyethylene Glycol (Miralax) 17 gm PO DAILYP PRN PRN Reason: Constipation Potassium Chloride (Klor-Con) 40 meq PO DAILYP PRN PRN Reason: K+ < 3.5 Potassium Chloride (Klor-Con) 40 meq PO ONCE ONE Stop: 08/27/20 10:31 Potassium/Phosphorus/Sodium (Neutra Phos) 2 packet PO BID [facility] Last Admin: 08/27/20 09:00 Dose: 2 packet Documented by: Senna/Docusate Sodium (Senna Plus Tablet) 1 tab PO HS [facility] Last Admin: 08/26/20 22:29 Dose: Not Given Documented by: Sodium Chloride (Saline Flush) 10 ml IV Q8 [facility] Last Admin: 08/27/20 05:11 Dose: 10 ml Documented by: A/P Narrative A/P Narrative: * Abdominal pain-clinically resolved. Extensive abdominal imaging including CT/ultrasound/MRCP negative for acute process. Now associated diarrhea with hypokalemia. Stool studies. * Diarrhea-rule out C. difficile. Continue crystalloids * Hypokalemia-persistent now at 2.8. Continue additional 80 mg potassium placement. * Low phosphorus continue oral replacement/nutrition support * Prophylaxis SCDs Plan * Continue PPI * Electrolyte replacement as required * Diarrhea work-up/C. difficile * Nutrition support/PT OT Time Spent With Patient Time: Total time spent is greater than 50% in coordination of care (as documented) at patient's floor/unit and/or counseling patient: QUALITY VTE Deep Vein Thrombosis/Pulmonary Embolism Present on Admission: No
--- NOTE | 2020-08-27 12:49 | Nephrology Consult Note ---
HPI Data of Consult Patient: new to practice Consult date: 08/27/20 Primary Care Provider: Salvatore Miranda Consult Narrative Patient Information: Note initiated : 08/27/20 at 12:48 pm Patient: Torrey Castro 85 y/o M admitted on 08/26/20 for abdominal pain. Chief complaint: Abdominal pain Reason for consult: Persistent hypokalemia cc:: CC: Raul Chaudhary Review of Systems ROS unobtainable: other (Limited due to hearling loss) Constitutional Constitutional: Present weakness EENT Ears: Present decreased hearing Respiratory Respiratory: Absent dyspnea Gastrointestinal Gastrointestinal: Present abdominal pain and diarrhea Integumentary Integumentary: Absent rash Neurological Neurological: Present weakness; Absent confusion Psychiatric Psychiatric: Absent anxiety and panic attacks Endocrine Endocrine: Absent cold intolerance and heat intolerance Hematologic/Lymphatic Hematologic/Lymphatic: Absent easy bleeding and easy bruising Allergic/Immunologic Allergic/Immunologic: Absent tongue swelling and uticaria PFSH PFSH All Active Problems (Updated 08/27/20 @ 12:53 by Jessie Panchal MD) Hypokalemia (Acute) Musculoskeletal chest pain (Acute) Diverticulitis (Acute) Abdominal pain (Acute) Influenza (Acute) Pneumonia (Acute) Medical History Diverticulitis (Acute) Surgical History History of lumbosacral spine surgery (Acute) Social History smoking status: Never smoker MEDS/ALLERGIES Home Medications and Allergies Home Medications Medication Instructions Recorded Confirmed Type hydrocodone-acetaminophen 1 tab PO Q4-6HP PRN 08/24/20 08/24/20 History Allergies Allergy/AdvReac Type Severity Reaction Status Date / Time No Known Drug Allergies Allergy Verified 08/23/20 15:53 Physical Examination Vital Signs Vital signs: Temp Pulse Resp BP Pulse Ox 99 F 72 16 164/79 99 08/27/20 12:00 08/27/20 12:00 08/27/20 12:00 08/27/20 12:00 08/27/20 12:00 General Appearance General appearance: fatigue and frail Neck Neck: supple Respiratory Respiratory: clear Cardiovascular Cardiology: no edema and regular rate Integumentary Integumentary: no rash and warm and dry Neurologic Neurologic: no focal deficit and alert and oriented x3 Musculoskeletal Musculoskeletal: no deformities Psychiatric Psychiatric: mood/affect appropriate and cooperative Results Lab Results Result Diagrams: 08/27/20 05:50 08/27/20 05:50 Lab results: Most recent lab results Calcium 7.6 mg/dL (8.6-10.4) L 08/27/20 05:50 Phosphorus 1.9 mg/dL (2.5-4.5) L 08/27/20 05:50 Magnesium 1.6 mg/dL (1.6-2.5) 08/27/20 05:50 A/P Assessment and plan (1) Hypokalemia: Assessment and plan: Torrey Castro is an 85-year-old male admitted for persistent mid upper and right-sided abdominal pain along associated diarrhea. The patient was initially evaluated at his primary care physician's office. His CT scan was suggestive of diverticulitis. He was started on Flagyl and Ciprofloxacin on 08/20/20. His symptoms worsened despite treatment. He presented to [facility] ED and admitted. MRCP did not show any evidence of choledocholithiasis. Nephrology consultation requested for persistent hypokalemia despite replacement. Persistent hypokalemia. Treatment: Potassium Chloride 40 mEq PO x 2 and IV x 1. Progress: Serum potassium increased from 2.6 to 2.8 in the past 24 hours. Serum magnesium 1.6. Intake: NS 1 L. Oral: 500 ml reported in the past 24 hours. Output: Urine: 675, Stool 125, Urine/Stool Mix 275 ml reported in the past 24 hours. Discussion: Potassium loss, likely gastrointestinal. No reason for urinary loss. Oral replacements may be not adequately absorbed. Recommendations/Plan: IV Potassium replacements as needed. LR if IVF needed. Monitor BMP, Mg and urine output. Status: Acute Time Spent With Patient Time: Total time spent is greater than 50% in coordination of care (as documented) at patient's floor/unit and/or counseling patient:
--- NOTE | 2020-08-27 19:48 | Discharge Summary ---
Discharge Provider Provider Patient information: Note initiated : 08/28/20 at 7:46 am Service Date, if different from initiated Date: [] Patient: Torrey Castro 85 y/o M admitted on 08/26/20 for abdominal pain. Chief Complaint: Discharge diagnosis * Abdominal pain-clinically resolved. Extensive abdominal imaging including CT/ultrasound/MRCP negative for acute process. * Diarrhea-clinically resolved. * Hypokalemia-resolved with replacement * Low phosphorus managed on oral replacement/nutrition support Brief hospital course Mr. Castro is a 85 year old M resents to the ER second time in 24 hours with persistent mid upper and right-sided abdominal pain along associated diarrhea. Patient was evaluated at his primary care physician's office and underwent CT scan that was suggestive of diverticulitis. He was started on Flagyl and ciprofloxacin on the however symptoms continued to worsen with increasing nausea abdominal discomfort worsening with food. He presented again yesterday. Initial work-up was consistent with intrahepatic and common bile duct dilatation due to a 1 cm perioperative diverticulum obstructing both ducts. Subsequently GI at [place] was consulted however due to lack of availability of beds patient was kept overnight. Patient subsequent underwent MRCP that did not show any evidence of choledocho lithiasis. Subsequently hospitalist service was consulted. Patient was also noticed to have potassium 2.7 for which he was started on replacement. He was noted to have black stools for which GI was consulted and recommended hospitalization/PPI . Thereafter hospital service was consulted for admission The time of my evaluation patient is in moderate discomfort endorses to 6 out of 10 to 8 out of 10 mid abdominal pain. Denies associated fever, shaking chills, jaundice, dysuria endorses to 2-3 episodes of loose stools. He also denies loss of appetite. Patient denies changes in medication, sick contacts. He denies recent trauma, fall, bruising. 08/25-patient doing a lot better overnight. Pain in good control. Denies diarrhea. No nausea vomiting. Currently on PPI. Hemoglobin 10.4., INR 1.2, potassium improved to 3.6, phosphorus 1.4, initiate replacement. Surgery on board. CT chest no evidence of musculo- skeletal trauma/fractures 08/26-patient doing a lot better. Diarrhea resolved. Abdominal pain resolved. However potassium 2.6/phosphorus 1.5 on replacement. Intermittent telemetry cardiac rhythm abnormality secondary to electrolyte derangement. Continue aggressive replacement. Continue PT OT. 08/27-patient clinically improving however persistent diarrhea. Check C. difficile. Stool studies. Hypokalemia despite replacement. Additional 80 mEq oral potassium replacement today. Continue Neutra-Phos. PT OT. Patient wants to go home with home health therapies. Ongoing physical therapy. Feels a lot better since admission. 08/28-patient doing well. Potassium normalized. Discharging home with advised to follow-up primary care physician 5 to 7 days. Date of admission: 08/26/20 10:07 Discharge date: 08/28/20 Primary care physician: Salvatore Miranda Consults: 08/24/20 12:43 Consult to Physician [CONS] Stat Comment: Consulting Provider: Raul Chaudhary Reason For Exam: Physician to Consult 08/24/20 14:13 Consult to Physician [CONS] Stat Comment: Consulting Provider: Huy Cruz Reason For Exam: Physician to Consult Discharge Meds Discharge Medications Home Medications hydrocodone-acetaminophen 1 tab PO Q4-6HP PRN 08/24/20 [History Confirmed 08/24/20 Last Taken Unknown] COURSE Hospital Course Hospital course: . Discharge diagnosis: . Time Spent with Patient Time attestation: Total time spent providing and/or coordinating discharge s ervices: EXAM Constitutional Vitals: Temp Pulse Resp BP Pulse Ox 98.6 F 71 16 142/65 96 08/27/20 19:09 08/27/20 19:09 08/27/20 19:09 08/27/20 19:09 08/27/20 19:09 Discharge Data Data Completed and Pending Labs on day of discharge: Labs from last 24 hours 08/27/20 08/27/20 05:50 05:50 WBC 6.2 RBC 3.19 L Hgb 10.1 L Hct 27.7 L MCV 86.8 MCH 31.7 MCHC 36.5 H RDW 12.5 Plt Count 171 MPV 9.2 Seg Neutrophils % 77 Band Neutrophils % Pending Lymphocytes % 16 Monocytes % (Manual) 6 Eosinophils % (Manual) 1 Platelet Estimate Normal RBC Morphology Normal Sodium 136 Potassium 2.8 L* Chloride 103 Carbon Dioxide 22 Anion Gap 11.0 BUN 11 Creatinine 0.9 GFR Calculation 77 Glucose 99 Uric Acid 4.3 Calcium 7.6 L Phosphorus 1.9 L Magnesium 1.6 Total Bilirubin 1.7 H Direct Bilirubin 0.3 H GGT 18 AST 22 ALT 16 Alkaline Phosphatase 47 Lactate Dehydrogenase 245 H Total Protein 4.8 L Albumin 3.1 L Globulin 1.7 L Albumin/Globulin Ratio 1.8 Triglycerides 112 Discharge Plan Patient/Caregiver Discharge Instructions Activity: increase activity as tolerated Diet: Regular Diet Instructions: Hypokalemia (GEN), Acute Diarrhea (GEN), Abdominal Pain (ED) Activity Restrictions/Additional Instructions: Increase activity as tolerated. May resume regular diet as tolerated. Follow-up PC 5 to 7 days. Call your physician for sustained fever greater than 100.5, increase in pain, for any questions/concerns. Return to ER if worse abdominal pain, nausea diarrhea. This discharge packet is provided to you to help keep you informed about your care. We want to ensure you get everything you need when you go home. You will also be receiving a call from us in a few days to follow up with you and see how you are doing since your discharge. This gives us a chance to listen to any concerns you maybe experiencing since you were discharged or any additional ne eds you may have, as well as providing us feedback on your care experience. We strive to always provide excellent care and thank you for your feedback and for choosing [facility]. Prescriptions: No Action hydrocodone-acetaminophen 7.5-325 mg tablet 1 tab PO Q4-6HP PRN (Reason: Pain) RF: 0 Follow Up Plan Follow up with: Salvatore Miranda MD [Primary Care Provider] - 09/03/20 10:00 am (Please arrive 15 minutes early) Patient Disposition: Home, Self-Care Prognosis: Fair Rehab Potential: Fair I certify that the patient requires SNF services: No Overall status at discharge: patient is progressing back to baseline Discharge Orders: Discharge Order (Routine); Ordered 08/28/20 Ordered By: Raul GERMAN VTE Deep Vein Thrombosis/Pulmonary Embolism Present on Admission: No
[2020-08-27] MEDS: SENNOSIDES/DOCUSATE SODIUM 1 TAB TABLET PO SCH (20:33)
[2020-08-28] MEDS: HYDROCODONE/APAP 7.5/325MG TABLET PO PRN ×2 (00:25→05:22)
[2020-08-28] MEDS: 0.9 % SODIUM CHLORIDE 10 ML SYRINGE IV SCH (04:15)
[2020-08-28] MEDS: PANTOPRAZOLE 40 MG VIAL IV SCH (07:51)
[2020-08-28 08:07] LABS: ALT/SGPT 15 U/L (<40); AST/SGOT 18 U/L (<40); Albumin 3.2 gm/dL (3.2-5.2); Albumin/Globulin Ratio 1.9 (1.0-2.3); Alkaline Phosphatase 49 U/L (39-117); Bilirubin,Direct 0.3 mg/dL (<0.3); Bilirubin,Total 1.4 mg/dL (0.1-1.0); Blood Urea Nitrogen 11 mg/dL (8-23); Calcium 8.3 mg/dL (8.6-10.4); Carbon Dioxide 22 mmol/L (22-30); Chloride 104 mmol/L (96-108); Globulin 1.7 gm/dL (2.2-3.7); Glomerular Filtration Rate 68; Glucose 101 mg/dL (70-105); Lactate Dehydrogenase 257 U/L (135-225); Phosphorous 2.4 mg/dL (2.5-4.5); Triglycerides 125 mg/dL (<150); Uric Acid 4.2 mg/dL (2.5-8.0)
--- NOTE | 2020-08-28 08:23 | Nephrology Progress Note ---
SUBJECTIVE Subjective Patient information: Note initiated : 08/28/20 at 8:20 am Patient: Torrey Castro 85 y/o M admitted on 08/26/20 for abdominal pain. Chief Complaint: Weakness Principal diagnosis: left upper quadrant and left lateral rib cage pain Pertinent ROS: Feeling better Diarrhea improved Weakness improved Constitutional Vitals: Vital Signs Temp Pulse Resp BP Pulse Ox 98.5 F 78 16 135/70 97 08/28/20 04:00 08/28/20 07:59 08/28/20 04:00 08/28/20 04:00 08/28/20 04:00 Period Temp Pulse Resp BP Sys/Crespo Pulse Ox Last 24 Hr 98.5 F-99 F 64-78 16-18 131-164/65-96 95-99 Intake and Output 08/27/20 08/28/20 08/28/20 21:59 05:59 13:59 Intake Total 400 Output Total 150 450 Balance -150 -50 Weight 144 lb 8 oz Intake & Output: Intake & Output 08/27/20 08/28/20 08/28/20 21:59 05:59 13:59 Intake Total 400 Output Total 150 450 Balance -150 -50 Weight 144 lb 8 oz Intake: Oral 400 Output: Void Amount 150 450 Other: Meal Dinner Percent of Meal Consumed 50% Feeding Ability Independent Urine Appearance Clear Clear Urine Color Dark Yellow Bright Yellow Urine Odor Normal Normal Stool Size Small Small Stool Color Brown Brown Stool Consistency Liquid Loose Loose # Bowel Movements 1 1 General appearance: cooperative and no acute distress Head Head exam: Present normal inspection Eye Eye exam: Present normal appearance ENT ENT exam: Present mucous membranes moist Respiratory Respiratory exam: Absent respiratory distress Cardiovascular Cardiovascular exam: Present normal rate and rhythm GI/Abdominal GI/Abdominal exam: Present soft; Absent tenderness Extremities Exam Extremities exam: Absent joint swelling and pedal edema Neurological Exam Neurological exam: Present alert and oriented X3 Psychiatric Psychiatric exam: Present normal affect and normal mood Skin Skin exam: Present warm; Absent rash A/P Assessment and plan (1) Hypokalemia: Assessment and plan: Torrey Castro is an 85-year-old male admitted for persistent mid upper and right-sided abdominal pain along associated diarrhea. The patient was initially evaluated at his primary care physician's office. His CT scan was suggestive of diverticulitis. He was started on Flagyl and Ciprofloxacin on 08/20/20. His symptoms worsened despite treatment. He presented to [facility] ED and admitted. MRCP did not show any evidence of choledocholithiasis. Nephrology consultation requested for persistent hypokalemia despite replacement. Persistent hypokalemia, resolving. Progress: Serum potassium increased from 2.8 to 3.3 in the past 24 hours. Intake: IV: NS 1 L. Oral: 1240 ml reported in the past 24 hours. Output: Urine: 600, Urine/Stool Mix 300 ml reported in the past 24 hours. Discussion: Potassium loss, likely gastrointestinal. No reason for urinary loss. Oral replacements may be not adequately absorbed. Recommendations/Plan: Nephrology will off. Status: Acute Time Spent With Patient Time: Total time spent is greater than 50% in coordination of care (as documented) at patient's floor/unit and/or counseling patient:
[2020-08-28] MEDS: DOCUSATE SODIUM 100 MG CAPSULE PO SCH (08:24)
[2020-08-28] MEDS: NEUTRA PHOS 1 PACKET PO SCH (08:29)
[2020-08-28] MEDS: MULTIVIT,THER IRON,CA,FA & MIN 1 TABLET PO SCH (08:29)
[2020-08-28 08:42] LABS: Eosinophils % (Manual) 4 % (0-7); Hematocrit 30.2 % (41.0-55.0); Hemoglobin 10.8 g/dL (13.5-16.5); Lymphocytes % 22 % (15-49); Mean Cell Volume 87.5 fL (80.0-100.0); Mean Corpuscular HGB Conc 35.8 g/dL (31.0-36.0); Mean Platelet Volume 9.5 fL (7.4-10.4); Monocytes % (Manual) 11 % (1-12); Platelet Count 189 K/mcL (140-440); Platelet Estimate NORMAL (Normal); RBC 3.45 M/mcL (4.50-5.90); RBC Morphology NORMAL (Normal); Red Cell Distribution Width 12.6 % (11.5-14.5); Segmented Neutrophils % 63 % (38-78); WBC 7.4 K/mcL (4.5-11.0)
== END 2020-08-28 14:55 | disposition home or self-care (01) | DRG 392 ==
LOC: ED 15:50 → ICU 08-24 13:57 → INTOOBSV 08-24 13:57 → ICU 08-24 14:03 → MEDSUR 08-26 16:58
PROVIDERS: ADMIT Internal Medicine; ATTEND Internal Medicine

== ENCOUNTER 2021-03-20 20:20 | Inpatient (IN) ==
--- NOTE | 2021-03-20 20:23 | Emergency Department Note ---
Nausea/Vomiting/Diarrhea HPI General Chief complaint: Nausea/Vomiting/Diarrhea Stated complaint: n/v/d Time Seen by Provider: 03/20/21 20:23 Mode of arrival: wheelchair Limitations: no limitations History of Present Illness HPI Narrative: Narrative: The patient is an 85-year-old male who who presents via ambulance. The patient is a poor historian. History is obtained from EMS first responders who report he was complained of abdominal pain and distention with a history of diverticulitis. The remainder of the history is unknown as the patient is confused and uncooperative. Related Data Home Medications Medication Instructions Recorded Confirmed hydrocodone-acetaminophen 1 tab PO Q4-6HP PRN 08/24/20 08/24/20 amlodipine 10 mg PO 03/20/21 atorvastatin PO 03/20/21 03/20/21 clopidogrel PO 03/20/21 03/20/21 furosemide PO 03/20/21 03/20/21 gabapentin PO 03/20/21 03/20/21 [id number] [Creon] cap PO 03/20/21 03/20/21 metoprolol succinate PO 03/20/21 03/20/21 potassium chloride meq PO 03/20/21 03/20/21 Allergies Allergy/AdvReac Type Severity Reaction Status Date / Time No Known Drug Allergies Allergy Verified 08/23/20 15:53 Review of Systems ROS ROS Narrative: Narrative: Limitations: ROS unobtainable due to patients medical condition [facility] Narrative Patient History Narrative: Narrative: Medical/Surgical/Family History All Active Problems (Updated 03/20/21 @ 23:03 by Cecilio Oconnor DO) Diverticulitis (Acute) Elevated troponin (Acute) History of kidney stones (Acute) Degenerative joint disease of spine (Acute) Chronic, continuous use of opioids (Acute) Hypertension, essential (Acute) Acute abdominal pain in right flank (Acute) Diarrhea (Acute) Nausea and vomiting (Acute) Atherosclerosis (Acute) Medical History Abdominal pain Chronic, 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 Diverticulitis Diverticulitis History of kidney stones Hypertension, essential Hypokalemia Influenza Musculoskeletal chest pain Pneumonia Surgical History History of lumbosacral spine surgery Family History Father Cancer Mother Cancer Social History Smoking Status: Never smoker Alcohol Intake Frequency: does not drink Substance Use: does not use Exam Narrative Narrative: Narrative: General Limitations: no limitations General appearance: Present alert Head Head: Present atraumatic and normocephalic Eye Eye: Present normal appearance, PERRL and EOMI ENT ENT: Present normal exam, normal oropharynx and mucous membranes moist Neck Neck: Present normal inspection, full ROM and trachea midline Chest Chest: Present normal inspection and symmetric chest wall rise Respiratory Respiratory: Present normal lung sounds bilaterally Cardiovascular Cardiovascular: Present regular rate and normal rhythm Adbominal Abdominal: Present distention, tenderness, guarding, diminished bowel sounds and scar; Absent ascites and pulsatile mass Extremities Extremities: Present normal inspection and full ROM; Absent tenderness Back Back: Present normal inspection and full ROM; Absent tenderness Neurological Neurological: Present alert, CN II-XII intact, motor sensory deficit and reflexes normal Expanded Neurological Coma Scale Eye Opening: Spontaneous Coma Scale Motor Response: Obeys Commands Coma Scale Verbal Response: Confused Coma Scale Total: 14 Psychiatric Psychiatric: Present normal affect Skin Skin: Present warm (WNL); Absent rash Course Course Course Narrative: Patient is a 85-year-old male who is confused complaint of abdominal pain. Plan is for labs and imaging. 20:48 EKG interpretation shows a rate of 91, VT interval 53, QRS 88, QTc 459., Left axis deviation, no STEMI, nonspecific EKG. Work-up is consistent with acute diverticulitis. Initial treatment with IV Flagyl and IV Rocephin provided to the patient. Vital Signs Vital signs: Vital Signs Temperature 99.1 F H 03/20/21 20:21 Pulse Rate 104 H 03/20/21 20:21 Respiratory Rate 16 03/20/21 20:21 Blood Pressure 155/119 03/20/21 20:21 Pulse Oximetry (%) 99 03/20/21 20:21 Temperature 99.6 F H 03/21/21 03:24 Pulse Rate 75 03/21/21 03:24 Respiratory Rate 20 03/21/21 03:24 Blood Pressure 155/61 03/21/21 03:24 Pulse Oximetry (%) 97 03/21/21 03:[address] [facility] MDM Narrative Medical decision making narrative: Narrative: Work-up is consistent with acute diverticulitis, patient given his first dose of IV Flagyl and IV Rocephin in the emergency department. Spoke with the hospitalist Dr. Miller who has agreed to accept this patient. Lab Data Result diagrams: 03/20/21 21:07 03/20/21 21:07 Labs: Lab Results 03/20/21 03/20/21 03/20/21 Range/Units 01:36 01:36 21:05 WBC (4.5-11.0) K/mcL RBC (4.50-5.90) M/mcL Hgb (13.5-16.5) g/dL Hct (41.0-55.0) % MCV (80.0-100.0) fL MCH (26.0-34.0) pg MCHC (31.0-36.0) g/dL RDW (11.5-14.5) % Plt Count (140-440) K/mcL MPV (7.4-10.4) fL Neut % (Auto) (38.0-78.0) % Lymph % (Auto) (15.0-49.0) % [place] % (Auto) (1.0-12.0) % Eos % (Auto) (0.0-7.0) % Baso % (Auto) (0.0-2.0) % Lymph # (Auto) (1.50-4.80) K/mcL [place] # (Auto) (0.10-0.90) K/mcL Eos # (Auto) (0.00-0.70) K/mcL Baso # (Auto) (0.00-0.20) K/mcL Absolute Neutrophils (1.80-8.00) K/mcL PT 16.0 H (11.9-14.5) sec INR 1.2 H (0.9-1.1) VBG Lactic Acid (0.5-2.0) mmol/L Sodium (133-145) mmol/L Potassium (3.3-5.1) mmol/L Chloride (96-108) mmol/L Carbon Dioxide (22-30) mmol/L Anion Gap (8.0-16.0) BUN (8-23) mg/dL Creatinine (0.7-1.2) mg/dL POC Creatinine (0.6-1.2) mg/dL GFR Calculation Glucose (70-105) mg/dL Calcium (8.6-10.4) mg/dL Total Bilirubin (0.1-1.0) mg/dL AST (<40) U/L ALT (<40) U/L Alkaline Phosphatase (39-117) U/L Troponin T (<0.03) ng/mL Total Protein (5.9-8.4) gm/dL Albumin (3.2-5.2) gm/dL Globulin (2.2-3.7) gm/dL Albumin/Globulin Ratio (1.0-2.3) Lipase (7-60) U/L Urine Color Yellow Urine Appearance Clear (Clear) Urine pH 5.0 (5.0-9.0) Ur Specific [place] 1.036 (1.000-1.035) Urine Protein 30 A (Negative) mg/dL Urine Glucose (UA) Negative (Negative) mg/dL Urine Ketones 5 A (Negative) mg/dL Urine Occult Blood 0.03 (Negative) mg/dL Urine Nitrate Negative (Negative) Urine Bilirubin Negative (Negative) mg/dL Urine Urobilinogen Negative mg/dL Ur Leukocyte Esterase Negative (Negative) /ug Urine RBC 2 (0-3) /hpf Urine WBC 1 (0-4) /hpf Ur Squamous Epith Cells 0 (0-4) /hpf Urine Bacteria None (0) /hpf Urine Mucus Few A (None) /hpf Ur Culture Indicated? No Urine Opiates Screen Suspect positive A Ur Oxycodone Screen None detected Urine Methadone Screen None detected Ur Methadone Confirm TNP Ur Barbiturates Screen None detected Ur Barbiturate Confirm TNP Ur Phencyclidine Scrn None detected Urine PCP Confirm TNP Ur Amphetamines Screen None detected U Amphetamines Confirm TNP U Benzodiazepines Scrn None detected U Benzodiazepine Confm TNP Urine Cocaine Screen None detected Urine Cocaine Confirm TNP U Marijuana (THC) Screen Suspect positive A Ethyl Alcohol (<0.010) gm/dL 03/20/21 03/20/21 03/20/21 Range/Units 21:05 21:05 21:05 WBC (4.5-11.0) K/mcL RBC (4.50-5.90) M/mcL Hgb (13.5-16.5) g/dL Hct (41.0-55.0) % MCV (80.0-100.0) fL MCH (26.0-34.0) pg MCHC (31.0-36.0) g/dL RDW (11.5-14.5) % Plt Count (140-440) K/mcL MPV (7.4-10.4) fL Neut % (Auto) (38.0-78.0) % Lymph % (Auto) (15.0-49.0) % [place] % (Auto) (1.0-12.0) % Eos % (Auto) (0.0-7.0) % Baso % (Auto) (0.0-2.0) % Lymph # (Auto) (1.50-4.80) K/mcL [place] # (Auto) (0.10-0.90) K/mcL Eos # (Auto) (0.00-0.70) K/mcL Baso # (Auto) (0.00-0.20) K/mcL Absolute Neutrophils (1.80-8.00) K/mcL PT (11.9-14.5) sec INR (0.9-1.1) VBG Lactic Acid 2.6 H (0.5-2.0) mmol/L Sodium (133-145) mmol/L Potassium (3.3-5.1) mmol/L Chloride (96-108) mmol/L Carbon Dioxide (22-30) mmol/L Anion Gap (8.0-16.0) BUN (8-23) mg/dL Creatinine (0.7-1.2) mg/dL POC Creatinine 1.2 (0.6-1.2) mg/dL GFR Calculation Glucose (70-105) mg/dL Calcium (8.6-10.4) mg/dL Total Bilirubin (0.1-1.0) mg/dL AST (<40) U/L ALT (<40) U/L Alkaline Phosphatase (39-117) U/L Troponin T 0.04 H* (<0.03) ng/mL Total Protein (5.9-8.4) gm/dL Albumin (3.2-5.2) gm/dL Globulin (2.2-3.7) gm/dL Albumin/Globulin Ratio (1.0-2.3) Lipase 17 (7-60) U/L Urine Color Urine Appearance (Clear) Urine pH (5.0-9.0) Ur Specific [place] (1.000-1.035) Urine Protein (Negative) mg/dL Urine Glucose (UA) (Negative) mg/dL Urine Ketones (Negative) mg/dL Urine Occult Blood (Negative) mg/dL Urine Nitrate (Negative) Urine Bilirubin (Negative) mg/dL Urine Urobilinogen mg/dL Ur Leukocyte Esterase (Negative) /ug Urine RBC (0-3) /hpf Urine WBC (0-4) /hpf Ur Squamous Epith Cells (0-4) /hpf Urine Bacteria (0) /hpf Urine Mucus (None) /hpf Ur Culture Indicated? Urine Opiates Screen Ur Oxycodone Screen Urine Methadone Screen Ur Methadone Confirm Ur Barbiturates Screen Ur Barbiturate Confirm Ur Phencyclidine Scrn Urine PCP Confirm Ur Amphetamines Screen U Amphetamines Confirm U Benzodiazepines Scrn U Benzodiazepine Confm Urine Cocaine Screen Urine Cocaine Confirm U Marijuana (THC) Screen Ethyl Alcohol (<0.010) gm/dL 03/20/21 03/20/21 03/20/21 Range/Units 21:07 21:07 21:07 WBC 7.4 (4.5-11.0) K/mcL RBC 3.39 L (4.50-5.90) M/mcL Hgb 10.9 L (13.5-16.5) g/dL Hct 30.5 L (41.0-55.0) % MCV 90.0 (80.0-100.0) fL MCH 32.2 (26.0-34.0) pg MCHC 35.7 (31.0-36.0) g/dL RDW 12.6 (11.5-14.5) % Plt Count 151 (140-440) K/mcL MPV 9.3 (7.4-10.4) fL Neut % (Auto) 86.7 H (38.0-78.0) % Lymph % (Auto) 8.1 L (15.0-49.0) % [place] % (Auto) 5.1 (1.0-12.0) % Eos % (Auto) 0 (0.0-7.0) % Baso % (Auto) 0.1 (0.0-2.0) % Lymph # (Auto) 0.60 L (1.50-4.80) K/mcL [place] # (Auto) 0.38 (0.10-0.90) K/mcL Eos # (Auto) 0 (0.00-0.70) K/mcL Baso # (Auto) 0.01 (0.00-0.20) K/mcL Absolute Neutrophils 6.44 (1.80-8.00) K/mcL PT (11.9-14.5) sec INR (0.9-1.1) VBG Lactic Acid (0.5-2.0) mmol/L Sodium 138 (133-145) mmol/L Potassium 3.5 (3.3-5.1) mmol/L Chloride 105 (96-108) mmol/L Carbon Dioxide 19 L (22-30) mmol/L Anion Gap 14.0 (8.0-16.0) BUN 13 (8-23) mg/dL Creatinine 1.1 (0.7-1.2) mg/dL POC Creatinine (0.6-1.2) mg/dL GFR Calculation 60 Glucose 134 H (70-105) mg/dL Calcium 8.8 (8.6-10.4) mg/dL Total Bilirubin 2.1 H (0.1-1.0) mg/dL AST 28 (<40) U/L ALT 13 (<40) U/L Alkaline Phosphatase 65 (39-117) U/L Troponin T (<0.03) ng/mL Total Protein 5.7 L (5.9-8.4) gm/dL Albumin 3.8 (3.2-5.2) gm/dL Globulin 1.9 L (2.2-3.7) gm/dL Albumin/Globulin Ratio 2.0 (1.0-2.3) Lipase (7-60) U/L Urine Color Urine Appearance (Clear) Urine pH (5.0-9.0) Ur Specific [place] (1.000-1.035) Urine Protein (Negative) mg/dL Urine Glucose (UA) (Negative) mg/dL Urine Ketones (Negative) mg/dL Urine Occult Blood (Negative) mg/dL Urine Nitrate (Negative) Urine Bilirubin (Negative) mg/dL Urine Urobilinogen mg/dL Ur Leukocyte Esterase (Negative) /ug Urine RBC (0-3) /hpf Urine WBC (0-4) /hpf Ur Squamous Epith Cells (0-4) /hpf Urine Bacteria (0) /hpf Urine Mucus (None) /hpf Ur Culture Indicated? Urine Opiates Screen Ur Oxycodone Screen Urine Methadone Screen Ur Methadone Confirm Ur Barbiturates Screen Ur Barbiturate Confirm Ur Phencyclidine Scrn Urine PCP Confirm Ur Amphetamines Screen U Amphetamines Confirm U Benzodiazepines Scrn U Benzodiazepine Confm Urine Cocaine Screen Urine Cocaine Confirm U Marijuana (THC) Screen Ethyl Alcohol < 0.010 (<0.010) gm/dL ED POC Tests ED POC Tests: NAZ - SARS Antigen Negative Discharge Plan Patient/Caregiver Discharge Instructions Pt seen by [facility]/PA only: No Clinical Impression: Diverticulitis, Elevated troponin Patient Disposition: Xfer As Inpt ([facility]) Condition: Fair Discharge Date/Time: 03/21/21 00:00
[2021-03-20] MEDS ORDERED: 0.9 % SODIUM CHLORIDE 1,000 ML IV ONE ×2 (20:41→21:17)
[2021-03-20] MEDS ORDERED: ONDANSETRON 4 MG/2 ML VIAL IV ONE (20:41)
[2021-03-20 21:14] LABS: POC Creatinine 1.2 mg/dL (0.6-1.2)
[2021-03-20 21:51] LABS: Basophils # (Auto) 0.01 K/mcL (0.00-0.20); Basophils % (Auto) 0.1 % (0.0-2.0); Eosinophils # (Auto) 0 K/mcL (0.00-0.70); Eosinophils % (Auto) 0 % (0.0-7.0); Hematocrit 30.5 % (41.0-55.0); Hemoglobin 10.9 g/dL (13.5-16.5); Lymphocytes % (Auto) 8.1 % (15.0-49.0); Mean Corpuscular HGB Conc 35.7 g/dL (31.0-36.0); Mean Platelet Volume 9.3 fL (7.4-10.4); Monocytes # (Auto) 0.38 K/mcL (0.10-0.90); Monocytes % (Auto) 5.1 % (1.0-12.0); Neutrophils % (Auto) 86.7 % (38.0-78.0); Platelet Count 151 K/mcL (140-440); RBC 3.39 M/mcL (4.50-5.90); Red Cell Distribution Width 12.6 % (11.5-14.5); WBC 7.4 K/mcL (4.5-11.0)
[2021-03-20 22:02] LABS: INR 1.2 (0.9-1.1)
[2021-03-20 22:12] LABS: Alcohol, Blood < 10.0 mg/dL; Alcohol,Blood < 0.010 gm/dL (<0.010)
[2021-03-20] MEDS ORDERED: morphine 4 MG/ML VIAL IV ONE (22:13)
[2021-03-20 22:14] LABS: ALT/SGPT 13 U/L (<40); AST/SGOT 28 U/L (<40); Albumin 3.8 gm/dL (3.2-5.2); Alkaline Phosphatase 65 U/L (39-117); Bilirubin,Total 2.1 mg/dL (0.1-1.0); Blood Urea Nitrogen 13 mg/dL (8-23); Calcium 8.8 mg/dL (8.6-10.4); Carbon Dioxide 19 mmol/L (22-30); Chloride 105 mmol/L (96-108); Globulin 1.9 gm/dL (2.2-3.7); Glomerular Filtration Rate 60; Glucose 134 mg/dL (70-105)
[2021-03-20] MEDS ORDERED: PANTOPRAZOLE 40 MG VIAL IV ONE (22:14)
[2021-03-20] MEDS ORDERED: metroNIDAZOLE 500 MG/100 ML BAG IV ONE (22:44)
[2021-03-20] MEDS ORDERED: cefTRIAXone 1 GM VIAL IV ONE (22:44)
[2021-03-20] MEDS ORDERED: ACETAMINOPHEN 325 MG TABLET PO PRN (23:10)
[2021-03-20] MEDS ORDERED: ONDANSETRON 4 MG/2 ML VIAL IV PRN (23:10)
[2021-03-20] MEDS ORDERED: ONDANSETRON 4 MG ODT TABLET SL PRN (23:10)
[2021-03-21] MEDS: 0.9 % SODIUM CHLORIDE 1,000 ML IV SCH ×2 (00:36→13:43)
[2021-03-21] MEDS: PIPERACILLIN SODIUM/TAZOBACTAM 3.375 GM in DEXTROSE 5% IN WATER 50 ML IV SCH ×5 (00:44→23:49)
[2021-03-21] MEDS: morphine 4 MG/ML VIAL IV PRN ×3 (00:45→11:30)
[2021-03-21 02:59] LABS: Amphetamine Screen,Urine None detected; Appearance,Urine CLEAR (Clear); Barbiturate Screen,Urine None detected; Benzodiazepines Screen,Urine None detected; Bilirubin,Urine Negative (Negative); Cannabinoid Screen,Urine Suspect Positive; Cocaine Screen,Urine None detected; Color,Urine YELLOW; Culture Indicated,Urine No; Glucose,Urine (UA) Negative (Negative); Ketones,Urine 5 mg/dL (Negative); Leukocyte Esterase,Urine Negative /ug (Negative); Mucus,Urine FEW /hpf; Nitrate,Urine Negative (Negative); Opiate Screen,Urine Suspect Positive; Oxycodone, Urine Screen None detected; Phencyclidine Screen,Urine None detected; Protein,Urine 30 mg/dL (Negative); Specific Gravity,Urine 1.036 (1.000-1.035); Urine Blood 0.03 mg/dL (Negative); Urine RBC 2 /hpf (0-3); Urine Squamous Epithelial Cell 0 /hpf (0-4); Urine WBC 1 /hpf (0-4); Urobilinogen,Urine Negative
[2021-03-21] MEDS ORDERED: 0.9 % SODIUM CHLORIDE 10 ML SYRINGE IV SCH (06:00)
--- NOTE | 2021-03-21 07:27 | Internal Med History&Physical ---
HPI History of Present Illness Patient information: Note initiated : 03/21/21 at 7:20 am Service Date, if different from initiated Date: [] Patient: Torrey Castro a 85 y/o M admitted on 03/21/21 for n/v/d. Chief Complaint: [] History of present illness: Mr. Castro is a 85 year old M The ED with nausea vomiting diarrhea abdominal pain and history of diverticulitis. Patient is a poor historian and most of history obtained from EMS. History of stroke with memory deficits. Mildly elevated lactate of 2.6. CT abdomen pelvis in ED reported diverticulitis. Patient started on IV antibiotics hospital. Review of Systems: Pertinent positives as above. Denies headache/fever/chills/chest pain/cough/dyspnea. Remaining 10 point review of system reviewed negative PFSH PFSH All Active Problems (Updated 03/20/21 @ 23:03 by Cecilio Oconnor DO) Diverticulitis (Acute) Elevated troponin (Acute) History of kidney stones (Acute) Degenerative joint disease of spine (Acute) Chronic, continuous use of opioids (Acute) Hypertension, essential (Acute) Acute abdominal pain in right flank (Acute) Diarrhea (Acute) Nausea and vomiting (Acute) Atherosclerosis (Acute) Medical History Abdominal pain Chronic, 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 Diverticulitis Diverticulitis History of kidney stones Hypertension, essential Hypokalemia Influenza Musculoskeletal chest pain Pneumonia Surgical History History of lumbosacral spine surgery Family History Father Cancer Mother Cancer Social History alcohol intake frequency: does not drink substance use type: does not use MEDS/ALLERGIES Home Medications and Allergies Home Medications Medication Instructions Recorded Confirmed Type hydrocodone-acetaminophen 1 tab PO Q4-6HP PRN 08/24/20 08/24/20 History amlodipine 10 mg PO 03/20/21 History atorvastatin PO 03/20/21 03/20/21 History clopidogrel PO 03/20/21 03/20/21 History furosemide PO 03/20/21 03/20/21 History gabapentin PO 03/20/21 03/20/21 History [id number] [Creon] cap PO 03/20/21 03/20/21 History metoprolol succinate PO 03/20/21 03/20/21 History potassium chloride meq PO 03/20/21 03/20/21 History Allergies Allergy/AdvReac Type Severity Reaction Status Date / Time No Known Drug Allergies Allergy Verified 08/23/20 15:53 EXAM Constitutional Vitals: Temp Pulse Resp BP Pulse Ox 99.3 F H 75 20 161/63 93 03/21/21 07:04 03/21/21 03:24 03/21/21 07:04 03/21/21 07:04 03/21/21 07:04 Exam: General: Alert, Awake, No acute Distress Eyes/N/T: EOMI, PERRL, dry MM Head/Neck: neck supple, normocephalic atraumatic CV: RRR, No murmurs, normal s1/s2 Pulm: Clear b/l, no wheezing/rhonchi/rales Abd: soft, TTP LLQ, +BS x4 Ext: no clubbing/cyanosis/edema Neuro: Alert, no focal deficits, moves all extremities, CN 2-12 grossly intact, symmetrical strength b/l upper/lower, sensations intact b/l upper/lower. memory deficits. Skin: warm/dry DATA Data Completed and Pending Labs: Labs from last 24 hours 03/20/21 03/20/21 03/20/21 21:07 21:07 21:07 WBC 7.4 RBC 3.39 L Hgb 10.9 L Hct 30.5 L MCV 90.0 MCH 32.2 MCHC 35.7 RDW 12.6 Plt Count 151 MPV 9.3 Neut % (Auto) 86.7 H Lymph % (Auto) 8.1 L [place] % (Auto) 5.1 Eos % (Auto) 0 Baso % (Auto) 0.1 Lymph # (Auto) 0.60 L [place] # (Auto) 0.38 Eos # (Auto) 0 Baso # (Auto) 0.01 Absolute Neutrophils 6.44 PT INR VBG Lactic Acid Sodium 138 Potassium 3.5 Chloride 105 Carbon Dioxide 19 L Anion Gap 14.0 BUN 13 Creatinine 1.1 POC Creatinine GFR Calculation 60 Glucose 134 H Calcium 8.8 Total Bilirubin 2.1 H AST 28 ALT 13 Alkaline Phosphatase 65 Troponin T Total Protein 5.7 L Albumin 3.8 Globulin 1.9 L Albumin/Globulin Ratio 2.0 Lipase Urine Color Urine Appearance Urine pH Ur Specific [place] Urine Protein Urine Glucose (UA) Urine Ketones Urine Occult Blood Urine Nitrate Urine Bilirubin Urine Urobilinogen Ur Leukocyte Esterase Urine RBC Urine WBC Ur Squamous Epith Cells Urine Bacteria Urine Mucus Ur Culture Indicated? Urine Opiates Screen Ur Opiates Confirm Ur Oxycodone Screen Urine Methadone Screen Ur Methadone Confirm Ur Barbiturates Screen Ur Barbiturate Confirm Ur Phencyclidine Scrn Urine PCP Confirm Ur Amphetamines Screen U Amphetamines Confirm U Benzodiazepines Scrn U Benzodiazepine Confm Urine Cocaine Screen Urine Cocaine Confirm U Cannabinoids Confirm U Marijuana (THC) Screen Ethyl Alcohol < 0.010 03/20/21 03/20/21 03/20/21 21:05 21:05 21:05 WBC RBC Hgb Hct MCV MCH MCHC RDW Plt Count MPV Neut % (Auto) Lymph % (Auto) [place] % (Auto) Eos % (Auto) Baso % (Auto) Lymph # (Auto) [place] # (Auto) Eos # (Auto) Baso # (Auto) Absolute Neutrophils PT INR VBG Lactic Acid 2.6 H Sodium Potassium Chloride Carbon Dioxide Anion Gap BUN Creatinine POC Creatinine 1.2 GFR Calculation Glucose Calcium Total Bilirubin AST ALT Alkaline Phosphatase Troponin T 0.04 H* Total Protein Albumin Globulin Albumin/Globulin Ratio Lipase 17 Urine Color Urine Appearance Urine pH Ur Specific [place] Urine Protein Urine Glucose (UA) Urine Ketones Urine Occult Blood Urine Nitrate Urine Bilirubin Urine Urobilinogen Ur Leukocyte Esterase Urine RBC Urine WBC Ur Squamous Epith Cells Urine Bacteria Urine Mucus Ur Culture Indicated? Urine Opiates Screen Ur Opiates Confirm Ur Oxycodone Screen Urine Methadone Screen Ur Methadone Confirm Ur Barbiturates Screen Ur Barbiturate Confirm Ur Phencyclidine Scrn Urine PCP Confirm Ur Amphetamines Screen U Amphetamines Confirm U Benzodiazepines Scrn U Benzodiazepine Confm Urine Cocaine Screen Urine Cocaine Confirm U Cannabinoids Confirm U Marijuana (THC) Screen Ethyl Alcohol 03/20/21 03/20/21 03/20/21 21:05 01:36 01:36 WBC RBC Hgb Hct MCV MCH MCHC RDW Plt Count MPV Neut % (Auto) Lymph % (Auto) [place] % (Auto) Eos % (Auto) Baso % (Auto) Lymph # (Auto) [place] # (Auto) Eos # (Auto) Baso # (Auto) Absolute Neutrophils PT 16.0 H INR 1.2 H VBG Lactic Acid Sodium Potassium Chloride Carbon Dioxide Anion Gap BUN Creatinine POC Creatinine GFR Calculation Glucose Calcium Total Bilirubin AST ALT Alkaline Phosphatase Troponin T Total Protein Albumin Globulin Albumin/Globulin Ratio Lipase Urine Color Yellow Urine Appearance Clear Urine pH 5.0 Ur Specific [place] 1.036 Urine Protein 30 A Urine Glucose (UA) Negative Urine Ketones 5 A Urine Occult Blood 0.03 Urine Nitrate Negative Urine Bilirubin Negative Urine Urobilinogen Negative Ur Leukocyte Esterase Negative Urine RBC 2 Urine WBC 1 Ur Squamous Epith Cells 0 Urine Bacteria None Urine Mucus Few A Ur Culture Indicated? No Urine Opiates Screen Suspect positive A Ur Opiates Confirm Pending Ur Oxycodone Screen None detected Urine Methadone Screen None detected Ur Methadone Confirm TNP Ur Barbiturates Screen None detected Ur Barbiturate Confirm TNP Ur Phencyclidine Scrn None detected Urine PCP Confirm TNP Ur Amphetamines Screen None detected U Amphetamines Confirm TNP U Benzodiazepines Scrn None detected U Benzodiazepine Confm TNP Urine Cocaine Screen None detected Urine Cocaine Confirm TNP U Cannabinoids Confirm Pending U Marijuana (THC) Screen Suspect positive A Ethyl Alcohol A/P Narrative A/P Narrative: A: *Diverticulitis, acute: *HTN/HLD: *CKD III: *h/o CVA w/residual memory deficits: on plavix *Chronic LBP: on sree/norco *h/o Chronic pancreatitis: on creon *h/o CML: follows with [facility] *h/o graded II diastolic cardiac dysfunction P: -zosyn to flagyl/cipro in AM -IV's -cont home ccb/bb, hold lasix for now -cont home statin/plavix -CM for needs, was at [facility] earlier this year -pt/ot -ppx: lovenox DNR Time Spent With Patient Time: Total time spent is greater than 50% in coordination of care (as documented) at patient's floor/unit and/or counseling patient:
[2021-03-21] MEDS ORDERED: ACETAMINOPHEN 1,000 MG/100 ML BAG IV ONE (08:31)
[2021-03-21 08:58] LABS: ALT/SGPT 14 U/L (<40); AST/SGOT 35 U/L (<40); Albumin 3.6 gm/dL (3.2-5.2); Alkaline Phosphatase 59 U/L (39-117); Bilirubin,Direct 0.2 mg/dL (<0.3); Bilirubin,Total 2.5 mg/dL (0.1-1.0); Blood Urea Nitrogen 11 mg/dL (8-23); Calcium 8.3 mg/dL (8.6-10.4); Carbon Dioxide 23 mmol/L (22-30); Chloride 112 mmol/L (96-108); Globulin 1.8 gm/dL (2.2-3.7); Glomerular Filtration Rate 60; Glucose 126 mg/dL (70-105); Lactate Dehydrogenase 313 U/L (135-225); Phosphorous 2.4 mg/dL (2.5-4.5); Triglycerides 77 mg/dL (<150); Uric Acid 5.6 mg/dL (2.5-8.0)
[2021-03-21] MEDS ORDERED: FAMOTIDINE/PF 20 MG/2 ML VIAL IV SCH (09:00)
[2021-03-21] MEDS ORDERED: LABETALOL 5 MG/ML ML IV PRN (09:05)
[2021-03-21 09:09] LABS: Hematocrit 29.8 % (41.0-55.0); Hemoglobin 10.3 g/dL (13.5-16.5); Mean Cell Volume 92.3 fL (80.0-100.0); Mean Corpuscular HGB Conc 34.6 g/dL (31.0-36.0); Mean Platelet Volume 9.6 fL (7.4-10.4); Platelet Count 121 K/mcL (140-440); RBC 3.23 M/mcL (4.50-5.90); Red Cell Distribution Width 12.9 % (11.5-14.5); WBC 7.1 K/mcL (4.5-11.0)
[2021-03-21] MEDS ORDERED: MAGNESIUM SULFATE 2 GM/50 ML BAG IV PRN (09:10)
[2021-03-21] MEDS ORDERED: POTASSIUM CHLORIDE 20 MEQ TABLET PO PRN (09:10)
[2021-03-21] MEDS ORDERED: IPRATROPIUM/ALBUTEROL 3 ML AMPUL.NEB NEB PRN (09:10)
[2021-03-21] MEDS ORDERED: POLYETHYLENE GLYCOL 3350 17 GM PACKET PO PRN (09:10)
[2021-03-21] MEDS ORDERED: POTASSIUM CHLORIDE 20 MEQ TABLET PO ONE (09:10)
[2021-03-21] MEDS ORDERED: HYDROcodone/APAP 5/325MG TABLET PO PRN (09:10)
[2021-03-21] MEDS ORDERED: ONDANSETRON 4 MG/2 ML VIAL IV PRN (09:10)
[2021-03-21] MEDS ORDERED: POTASSIUM CHLORIDE 40 MEQ in DEXTROSE 5% IN WATER 500 ML IV PRN (09:10)
[2021-03-21] MEDS ORDERED: 0.9 % SODIUM CHLORIDE 1,000 ML IV SCH (09:15)
--- NOTE | 2021-03-21 09:23 | Cat Scan Report ---
History: Abdominal pain and distention, Prior leukemia TECHNIQUE: The patient was imaged following injection of intravenous nonionic contrast scanning during the portal venous phase from above the diaphragm through the symphysis pubis. Sagittal and coronal reformats were created. The radiation exposure was limited using dose reduction technology. FINDINGS: Patient has mild pulmonary fibrosis in the periphery of both lung bases. Superimposed upon this is interstitial inflammation and tiny bilateral pleural effusions. The Inflammation and pleural fusion are new since prior CT study done on 08/16/2021 and 08/23/2020. The fibrosis is a chronic finding which has slowly progressed. The liver and spleen are normal in size and homogeneous. The gallbladder has been removed. There is a 9 mm stone within a dilated cystic duct remnant. The wall of the cystic duct remnant is mildly thickened. This is a chronic stable finding. The bile ducts are nondilated. There are no stones within the common hepatic or common bile duct. The pancreas is normal and homogeneous without evidence of a mass or inflammation. There is a lobulated nodule in left adrenal which measures 2.5 x 2.8 cm. The right adrenal is normal. Left adrenal nodule is a chronic stable finding and may be a myelolipoma. There is chronic severe atrophy of the right kidney. A nonobstructing 3 mm stone is present in a calyx in the lower third of the right kidney. There is an exophytic 1.4 cm cyst at the upper pole. In the left kidney there is a 4.3 x 5.6 cm exophytic cyst located anteriorly and medially in the lower half. A 6 mm cortical cyst is present posteriorly in the upper half of the kidney. No solid mass, stone or hydronephrosis are present in the left kidney. There is mild stranding of the perinephric fat around the left kidney. This is a chronic finding and unlikely due to acute inflammation. Patient has severe arthrosclerotic disease in the abdomen and pelvis. There is a critical stenosis at the origin of the right renal artery due to densely calcified plaque. Nonhemodynamically significant stenosis is present at the origin of the left renal artery. There is ectasia of the distal abdominal aorta. Urinary bladder is incompletely distended but appears normal. There is a moderately enlarged prostate indenting the base of the bladder. Several calcifications are present in the prostate. Seminal vesicles are normal. There are multiple diverticula in the descending and sigmoid colon but there is no acute diverticulitis. Several loops of small bowel are borderline distended in the midabdomen and the hand are slightly thickened. This may be due to enteritis. The appendix is not clearly identified but there is no evidence of appendicitis. Trace amount of free fluid is present deep in the pelvis. There is no abscess or intra-abdominal mass. Postsurgical changes are present following prior discectomy and fusion at L2-3. There is severe disc space narrowing at L3-4 and moderate disc space narrowing at L4-5. Grade 1 spondylolisthesis is present at L4-5 and there is severe spinal canal stenosis at L4-5. No adenopathy is present in the abdomen or pelvis. IMPRESSION: Pulmonary fibrosis and superimposed interstitial inflammation in both lower lobes No evidence of an abdominal mass or recurrent leukemia Severe stenosis of the right renal artery causing atrophy of the right kidney Mild enteritis of the small intestine Diverticulosis but without diverticulitis Gallstone in a cystic duct remnant Stable adenoma in the left adrenal Interpreted and Authenticated by: Bar Palma 03/21/21
[2021-03-21 10:35] LABS: Lymphocytes % 3 % (15-49); Monocytes % (Manual) 5 % (1-12); Platelet Estimate NORMAL (Normal); RBC Morphology NORMAL (Normal); Reactive Lymphocytes 4 % (0-2); Segmented Neutrophils % 88 % (38-78)
[2021-03-21] MEDS: GABAPENTIN 300 MG CAPSULE PO SCH ×3 (10:56→21:29)
[2021-03-21] MEDS: CLOPIDOGREL 75 MG TABLET PO SCH (10:56)
[2021-03-21] MEDS: amLODIPine 10 MG TABLET PO SCH (10:56)
[2021-03-21] MEDS: DOCUSATE SODIUM 100 MG CAPSULE PO SCH ×2 (10:56→21:20)
[2021-03-21] MEDS: 0.9 % SODIUM CHLORIDE 10 ML SYRINGE IV SCH ×3 (13:37→23:50)
[2021-03-21] MEDS: SENNOSIDES 1 TABLET PO SCH (21:20)
[2021-03-21] MEDS: HYDROCODONE/APAP 7.5/325MG TABLET PO PRN (21:28)
[2021-03-21] MEDS: ATORVASTATIN 20 MG TABLET PO SCH (21:28)
[2021-03-21] MEDS: FAMOTIDINE/PF 20 MG/2 ML VIAL IV SCH (21:29)
[2021-03-21] MEDS: POTASSIUM CHLORIDE 20 MEQ TABLET PO PRN (21:29)
[2021-03-22] MEDS: morphine 4 MG/ML VIAL IV PRN ×2 (00:01→18:42)
[2021-03-22] MEDS: HYDROCODONE/APAP 7.5/325MG TABLET PO PRN ×2 (03:39→21:39)
[2021-03-22] MEDS: 0.9 % SODIUM CHLORIDE 10 ML SYRINGE IV SCH ×4 (04:52→21:39)
[2021-03-22] MEDS: PIPERACILLIN SODIUM/TAZOBACTAM 3.375 GM in DEXTROSE 5% IN WATER 50 ML IV SCH (05:35)
--- NOTE | 2021-03-22 07:04 | Internal Med Progress Note ---
SUBJECTIVE Subjective Patient information: Note initiated : 03/22/21 at 7:00 am Service Date, if different from initiated Date: [] Patient: Torrey Castro 85 y/o M admitted on 03/21/21 for n/v/d. Chief Complaint: [] Interval history: History of present illness: Mr. Castro is a 85 year old M The ED with nausea vomiting diarrhea abdominal pain and history of diverticulitis. Patient is a poor historian and most of history obtained from EMS. History of stroke with memory deficits. Mildly elevated lactate of 2.6. CT abdomen pelvis in ED reported diverticulitis. Patient started on IV antibiotics hospital. *Per updated information from daughter - Pt commonly has episodes of n/v/d at home, just that it seemed to be a bit worse this time. 03/22 Constitutional Vitals: Vital Signs Temp Pulse Resp BP Pulse Ox 98.3 F 76 18 138/65 91 03/22/21 04:00 03/22/21 04:00 03/22/21 04:00 03/22/21 04:00 03/22/21 04:00 Period Temp Pulse Resp BP Sys/Crespo Pulse Ox Last 24 Hr 98.0 F-99.5 F 66-83 16-22 138-161/63-74 91-95 Intake and Output 03/21/21 03/22/21 03/22/21 21:59 05:59 13:59 Intake Total 50 2561 50 Output Total 252 Balance 50 2309 50 Weight 65.544 kg Intake & Output: Intake & Output 03/21/21 03/22/21 03/22/21 21:59 05:59 13:59 Intake Total 50 2561 50 Output Total 252 Balance 50 2309 50 Weight 65.544 kg Intake: IV 50 1961 50 Sodium Chloride 0.9% 1,000 ml @ 1861 125 mls/hr IV .Q8H [facility] Rx#: [id number] Zosyn 3.375 gm In Dextrose 5% 50 50 50 in Water 50 ml @ 100 mls/hr IV Q6H [facility] Rx#:[id number] Oral 600 Output: Void Amount 250 # of times incontinent of urine 2 Other: Urine Appearance Clear Urine Color Bright Yellow Stool Size Moderate Moderate Stool Color Green Green Stool Consistency Loose Liquid Watery # Bowel Movements 1 1 # of times incontinent of 1 Bowels Exam: General: Alert, Awake, No acute Distress Eyes/N/T: EOMI, Head/Neck: neck supple, normocephalic atraumatic CV: RRR, No murmurs, normal s1/s2 Pulm: Clear b/l, no wheezing/rhonchi/rales Abd: soft, mild TTP LLQ, +BS x4 Ext: no clubbing/cyanosis/edema Neuro: Alert, no focal deficits, moves all extremities,memory deficits. Skin: warm/dry OBJ DATA Labs CBC & Chem 7: 03/21/21 07:41 03/21/21 07:41 Labs: Abnormal Lab Results 03/21/21 03/21/21 03/20/21 07:41 07:41 21:07 RBC 3.23 L Hgb 10.3 L Hct 29.8 L Plt Count 121 L Neut % (Auto) Lymph % (Auto) Lymph # (Auto) Seg Neutrophils % 88 H Lymphocytes % 3 L Reactive Lymphocytes 4 H PT INR VBG Lactic Acid Potassium 3.1 L Chloride 112 H Carbon Dioxide 19 L Glucose 126 H 134 H Calcium 8.3 L Phosphorus 2.4 L Total Bilirubin 2.5 H 2.1 H Lactate Dehydrogenase 313 H Troponin T Total Protein 5.4 L 5.7 L Globulin 1.8 L 1.9 L Urine Protein Urine Ketones Urine Mucus Urine Opiates Screen U Marijuana (THC) Screen 03/20/21 03/20/21 03/20/21 21:07 21:05 21:05 RBC 3.39 L Hgb 10.9 L Hct 30.5 L Plt Count Neut % (Auto) 86.7 H Lymph % (Auto) 8.1 L Lymph # (Auto) 0.60 L Seg Neutrophils % Lymphocytes % Reactive Lymphocytes PT INR VBG Lactic Acid 2.6 H Potassium Chloride Carbon Dioxide Glucose Calcium Phosphorus Total Bilirubin Lactate Dehydrogenase Troponin T 0.04 H* Total Protein Globulin Urine Protein Urine Ketones Urine Mucus Urine Opiates Screen U Marijuana (THC) Screen 03/20/21 03/20/21 03/20/21 21:05 01:36 01:36 RBC Hgb Hct Plt Count Neut % (Auto) Lymph % (Auto) Lymph # (Auto) Seg Neutrophils % Lymphocytes % Reactive Lymphocytes PT 16.0 H INR 1.2 H VBG Lactic Acid Potassium Chloride Carbon Dioxide Glucose Calcium Phosphorus Total Bilirubin Lactate Dehydrogenase Troponin T Total Protein Globulin Urine Protein 30 A Urine Ketones 5 A Urine Mucus Few A Urine Opiates Screen Suspect positive A U Marijuana (THC) Screen Suspect positive A Meds: Medications Acetaminophen (Acetaminophen 325 Mg Tablet) 650 mg PO Q6HP PRN; Protocol PRN Reason: Per Pain Protocol/Fever > 101 Hydrocodone Bitart/Acetaminophen (Hydrocodone/Apap 7.5/325mg Tablet) 1 - 2 tab PO Q6HP PRN; Protocol PRN Reason: Per Pain Protocol Last Admin: 03/22/21 03:39 Dose: 2 tab Documented by: Albuterol/Ipratropium (Ipratropium/Albuterol 3 Ml Ampul.Neb) 3 ml NEB Q4HP PRN PRN Reason: Shortness Of Breath Amlodipine Besylate (Amlodipine 10 Mg Tablet) 10 mg PO DAILY [facility] Last Admin: 03/21/21 10:56 Dose: 10 mg Documented by: Atorvastatin Calcium (Atorvastatin 20 Mg Tablet) 20 mg PO HS [facility] Last Admin: 03/21/21 21:28 Dose: 20 mg Documented by: Clopidogrel Bisulfate (Clopidogrel 75 Mg Tablet) 75 mg PO DAILY [facility] Last Admin: 03/21/21 10:56 Dose: 75 mg Documented by: Docusate Sodium (Docusate Sodium 100 Mg Capsule) 100 mg PO BID [facility] Last Admin: 03/21/21 21:20 Dose: Not Given Documented by: Enoxaparin Sodium (Enoxaparin 40 Mg/0.4 Ml Syringe) 40 mg SQ DAILY [facility] Famotidine (Famotidine/Pf 20 Mg/2 Ml Vial) 20 mg IV Q12 [facility] Last Admin: 03/21/21 21:29 Dose: 20 mg Documented by: Gabapentin (Gabapentin 300 Mg Capsule) 300 mg PO TID [facility] Last Admin: 03/21/21 21:29 Dose: 300 mg Documented by: Piperacillin Sod/Tazobactam (Sod 3.375 gm/ Dextrose) 50 mls @ 100 mls/hr IV Q6H [facility]; Protocol Last Infusion: 03/22/21 06:10 Dose: Infused Documented by: Potassium Chloride 40 meq/ (Dextrose) 520 mls @ 130 mls/hr IV UD PRN PRN Reason: Potassium < 3 Magnesium Sulfate (Magnesium Sulfate) 2 gm in 50 mls @ 50 mls/hr IV UD PRN PRN Reason: Magnesium </= 1.6 Last Infusion: 03/22/21 04:50 Dose: Infused Documented by: Labetalol HCl (Labetalol 5 Mg/Ml Ml) 0 mg IV Q2HP PRN PRN Reason: Hypertension Metoprolol Succinate (Metoprolol Succinate 50 Mg Tab.Xl.24h) 100 mg PO DAILY [facility] Morphine Sulfate (Morphine 4 Mg/Ml Vial) 4 mg IV Q3HP PRN; Protocol PRN Reason: Per Pain Protocol Last Admin: 03/22/21 00:01 Dose: 4 mg Documented by: Ondansetron HCl (Ondansetron 4 Mg Odt Tablet) 4 mg SL Q6HP PRN PRN Reason: Nausea And Vomiting Ondansetron HCl (Ondansetron 4 Mg/2 Ml Vial) 4 mg IV Q4HP PRN PRN Reason: Nausea And Vomiting Polyethylene Glycol (Polyethylene Glycol 3350 17 Gm Packet) 17 gm PO DAILYP PRN PRN Reason: Constipation Potassium Chloride (Potassium Chloride 20 Meq Tablet) 40 meq PO UD PRN PRN Reason: Potssium is 3-3.5 Last Admin: 03/21/21 21:29 Dose: 40 meq Documented by: Potassium Chloride (Potassium Chloride 20 Meq Tablet) 40 meq PO UD PRN PRN Reason: Potassium < 3 Senna (Sennosides 1 Tablet) 2 tab PO HS [facility] Last Admin: 03/21/21 21:20 Dose: Not Given Documented by: Sodium Chloride (0.9 % Sodium Chloride 10 Ml Syringe) 10 ml IV Q8 [facility] Last Admin: 03/22/21 04:52 Dose: 10 ml Documented by: A/P Narrative A/P Narrative: A: *small bowel Enteritis: Diverticulitis per rads read in ED but not on in-house read *HTN/HLD: *CKD III: *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
[2021-03-22] MEDS ORDERED: metroNIDAZOLE 500 MG/100 ML BAG IV SCH (07:15)
[2021-03-22 07:17] LABS: ALT/SGPT 17 U/L (<40); AST/SGOT 47 U/L (<40); Albumin 3.6 gm/dL (3.2-5.2); Alkaline Phosphatase 57 U/L (39-117); Bilirubin,Direct 0.2 mg/dL (<0.3); Bilirubin,Total 1.9 mg/dL (0.1-1.0); Blood Urea Nitrogen 10 mg/dL (8-23); Calcium 8.2 mg/dL (8.6-10.4); Carbon Dioxide 20 mmol/L (22-30); Chloride 114 mmol/L (96-108); Globulin 1.8 gm/dL (2.2-3.7); Glomerular Filtration Rate 60; Glucose 109 mg/dL (70-105); Lactate Dehydrogenase 356 U/L (135-225); Phosphorous 2.1 mg/dL (2.5-4.5); Triglycerides 97 mg/dL (<150)
[2021-03-22] MEDS: amLODIPine 10 MG TABLET PO SCH (08:56)
[2021-03-22] MEDS: CLOPIDOGREL 75 MG TABLET PO SCH (08:56)
[2021-03-22] MEDS: LIPASE/PROTEASE/AMYLASE 1 CAP CAPSULE PO SCH ×3 (08:56→18:03)
[2021-03-22] MEDS: FAMOTIDINE/PF 20 MG/2 ML VIAL IV SCH ×2 (08:56→21:39)
[2021-03-22] MEDS: GABAPENTIN 300 MG CAPSULE PO SCH ×3 (08:57→21:39)
[2021-03-22] MEDS: TAMSULOSIN 0.4 MG CAPSULE PO SCH ×2 (08:57→21:39)
[2021-03-22] MEDS: METOPROLOL SUCCINATE 50 MG TAB.XL.24H PO SCH (08:57)
[2021-03-22] MEDS: DOCUSATE SODIUM 100 MG CAPSULE PO SCH ×2 (08:58→20:58)
[2021-03-22] MEDS ORDERED: ENOXAPARIN 40 MG/0.4 ML SYRINGE SQ SCH (09:00)
[2021-03-22] MEDS ORDERED: CIPROFLOXACIN 400 MG/200 ML BAG IV SCH (09:00)
--- NOTE | 2021-03-22 10:31 | Discharge Summary ---
Discharge Provider Provider Patient information: Note initiated : 03/22/21 at 10:29 am Service Date, if different from initiated Date: [] Patient: Torrey Castro 85 y/o M admitted on 03/21/21 for n/v/d. Chief Complaint: [] Date of admission: 03/21/21 00:10 Discharge date: 03/24/21 Primary care physician: Salvatore Miranda Consults: 03/20/21 Consult to Physician [CONS] Stat Comment: Consulting Provider: Marc Miller Reason For Exam: Physician to Consult Discharge Meds Discharge Medications Home Medications hydrocodone-acetaminophen 1 tab PO Q4-6HP PRN 08/24/20 [History Confirmed 03/21/21 Last Taken Unknown] Creon 2 cap PO TID 03/20/21 [History Confirmed 03/21/21 Last Taken Unknown] amlodipine 10 mg PO QAM 03/20/21 [History Confirmed 03/21/21 Last Taken Unknown] atorvastatin 10 mg PO QDAY 03/20/21 [History Confirmed 03/21/21 Last Taken Unknown] clopidogrel 75 mg PO QAM 03/20/21 [History Confirmed 03/21/21 Last Taken Unknown] gabapentin 300 mg PO TID 03/20/21 [History Confirmed 03/21/21 Last Taken Unknown] tamsulosin 0.4 mg PO BID 03/21/21 [History Confirmed 03/21/21 Last Taken Unknown] triamterene-hydrochlorothiazid 1 cap PO QAM 03/21/21 [History Confirmed 03/21/21 Last Taken Unknown] ondansetron 4 mg PO Q8H PRN #30 tab 03/22/21 [Rx Last Taken Unknown] amoxicillin-pot clavulanate [Augmentin] 1 tab PO Q12H #4 tab 03/23/21 [Rx Last Taken Unknown] apixaban [Eliquis] 5 mg PO BID #60 tab 03/23/21 [Rx Last Taken Unknown] COURSE Hospital Course Hospital course: Interval history: History of present illness: Mr. Castro is a 85 year old M The ED with nausea vomiting diarrhea abdominal pain and history of diverticulitis. Patient is a poor historian and most of history obtained from EMS. History of stroke with memory deficits. Mildly elevated lactate of 2.6. CT abdomen pelvis in ED reported diverticulitis. Patient started on IV antibiotics hospital. *Per updated information from daughter - Pt commonly has episodes of n/v/d at home, just that it seemed to be a bit worse this time. 03/22 Patient slept okay. No nausea vomiting diarrhea. 03/23 Patient states he feels little better today. When I went in there he is on 5 L oxygen or dropped him down to 2 and he has good sats while a conversation with him. He is denying shortness of breath or cough. CTA showed no PE but did show infiltrates likely aspirated on admit when he had all the nausea vomiting. He does have some moderate bilateral effusions. Potentially to get a thoracentesis today however depend on radiology and him being on anticoagulation. 500cc and sedated appearing fluid from the left pleural cavity *Is able to find out from the daughter that the patient has actually been vaping marijuana for some time. This was information to the daughter as well. This could be contributing or the cause of underlying lung pathology as is noted in the CT with groundglass opacities. 03/24 Doing well. Is on room air. Discharge to SNF A: *small bowel Enteritis: Diverticulitis per rads read in ED but not on in-house read *N/V/D: common at home(?2/2 imatinib), none since admit. *Likely Aspiration PNA, on admit +/- underlying Vaping-associated Lung Injury: *pleural effusions: *Acute hypoxic resp failure: 2/2 above -on 2L NC *LLE DVT: no PE on CTA *HTN/HLD: *CKD III: *h/o CVA w/residual memory deficits: on plavix *Chronic LBP: on rsee/norco *h/o Chronic pancreatitis: on creon *h/o CML: follows with [facility] *h/o graded II diastolic cardiac dysfunction *suspected COPD based on imaging and history Discharge diagnosis: Enteritis nausea vomiting diarrhea Secondary discharge diagnosis: History of stroke with residual memory deficit CKD hypertension chronic low back pain chronic pancreatitis CML Time Spent with Patient Time attestation: Total time spent providing and/or coordinating discharge services: Time spent: Greater than 30 minutes EXAM Constitutional Vitals: Temp Pulse Resp BP Pulse Ox 98.8 F 79 18 153/55 90 03/22/21 07:05 03/22/21 07:05 03/22/21 07:05 03/22/21 07:05 03/22/21 07:05 Discharge Data Data Completed and Pending Labs on day of discharge: Labs from last 24 hours 03/22/21 03/21/21 03/21/21 05:39 19:21 07:41 Seg Neutrophils % 88 H Lymphocytes % 3 L Monocytes % (Manual) 5 Reactive Lymphocytes 4 H Platelet Estimate Normal RBC Morphology Normal Sodium 144 Potassium 3.4 Chloride 114 H Carbon Dioxide 20 L Anion Gap 10.0 BUN 10 Creatinine 1.1 GFR Calculation 60 Glucose 109 H Uric Acid 4.0 Calcium 8.2 L Phosphorus 2.1 L Magnesium 2.6 H Total Bilirubin 1.9 H Direct Bilirubin 0.2 GGT 21 AST 47 H ALT 17 Alkaline Phosphatase 57 Lactate Dehydrogenase 356 H C-Reactive Protein 0.80 Total Protein 5.4 L Albumin 3.6 Globulin 1.8 L Albumin/Globulin Ratio 2.0 Triglycerides 97 Discharge Plan Patient/Caregiver Discharge Instructions Activity: increase activity as tolerated Diet: Regular Diet Instructions: Pleural Effusion (DC), Enteritis (DC) Activity Restrictions/Additional Instructions: Follow-up with PCP/oncology(imatinib) about possible medication adverse effect with nausea, vomiting, diarrhea. Increase activity as tolerated. May resume regular diet as tolerated. Call your physician for sustained fever greater than 100.5, cough, increase in nausea/vomiting, or any questions/concerns. This discharge packet is provided to you to help keep you informed about your care. We want to ensure you get everything you need when you go home. You will also be receiving a call from us in a few days to follow up with you and see how you are doing since your discharge. This gives us a chance to listen to any concerns you maybe experiencing since you were discharged or any additional needs you may have, as well as providing us feedback on your care experience. We strive to always provide excellent care and thank you for your feedback and for choosing [facility]. Prescriptions: New ondansetron 4 mg tablet,disintegrating 4 mg PO Q8H PRN (Reason: nausea and vomiting) Qty: 30 RF: 0 Eliquis 5 mg tablet 5 mg PO BID Qty: 60 RF: 0 amoxicillin-pot clavulanate [Augmentin] 875-125 mg tablet 1 tab PO Q12H Qty: 4 RF: 0 Continued hydrocodone-acetaminophen 7.5-325 mg tablet 1 tab PO Q4-6HP PRN (Reason: Pain) RF: 0 amlodipine 10 mg tablet 10 mg PO QAM RF: 0 atorvastatin 10 mg tablet 10 mg PO QDAY RF: 0 clopidogrel 75 mg tablet 75 mg PO QAM RF: 0 gabapentin 300 mg capsule 300 mg PO TID RF: 0 Creon 3,000-9,500- 15,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,delayed release(DR/EC) 2 cap PO TID RF: 0 tamsulosin 0.4 mg capsule 0.4 mg PO BID RF: 0 triamterene-hydrochlorothiazid 37.5-25 mg capsule 1 cap PO QAM RF: 0 Other Ambulatory Orders: OT Discharge Order (Routine) Location: None Selected Ordered By: Marc Miller Physical Therapy at Discharge - General (Routine) Location: None Selected Ordered By: Marc Miller Follow Up Plan Follow up with: Salvatore Miranda MD [Primary Care Provider] - (Please call and schedule a hospital follow up appointment.) [facility] [employer]EC[employer] [Adv Reg Nurse Practitioner] - (Please call and schedule a hospital follow up appointment.) Patient Disposition: Xfer SNF Prognosis: Fair Rehab Potential: Fair I certify that the patient requires SNF services: Yes Overall status at discharge: patient is progressing back to baseline Discharge Orders: Discharge Order (Routine); Ordered 03/24/21 Ordered By: Marc Miller
[2021-03-22] MEDS: PHOSPHORUS 250 MG TABLET PO SCH ×2 (11:33→21:49)
--- NOTE | 2021-03-22 12:17 | Ultrasound Report ---
CLINICAL INFORMATION: Left calf tenderness COMPARISON: None. FINDINGS: Moderate thrombus throughout the paired posterior tibial calf veins. The remaining deep veins-the common femoral, superficial femoral, popliteal and paired anterior tibial and peroneal calf veins are easily compressible and show normal venous blood flow on color and spectral Doppler. IMPRESSION: Moderate thrombus within the portal paired posterior tibial calf veins. Interpreted and Authenticated by: Daniel Quiroz 03/22/21
[2021-03-22] MEDS ORDERED: ENOXAPARIN 30 MG/0.3 ML SYRINGE SQ ONE (12:24)
[2021-03-22] MEDS: metroNIDAZOLE 500 MG TABLET PO SCH ×2 (14:38→21:39)
[2021-03-22] MEDS ORDERED: IOPAMIDOL 100 ML BOTTLE IV ONE (17:48)
--- NOTE | 2021-03-22 18:04 | Cat Scan Report ---
CLINICAL INFORMATION: Dyspnea COMPARISON: CT without contrast 08/24/2020 TECHNIQUE: 80ml of Isovue-370 were injected intravenously. Using SmartPrep to maximize pulmonary artery opacification, .625mm helical slices were obtained from the lung apices through the lung bases. Following reconstruction, 2.5 mm sagittal, coronal, and axial reformations were processed. The exam was reviewed at mediastinal, lung, and bone windows. The exam was performed using radiation dose optimization techniques including, but not limited to, automated exposure control, adjustment of the mA and/or kV according to patient size and use of iterative reconstruction technique. FINDINGS: The mediastinal windows show the heart is moderately enlarged with calcification in the mitral annulus and valve. There is also moderate plaque in the coronary arteries. Pulmonary arteries mildly distended and opacified opacified: no evidence of embolus. Thoracic aorta is normal caliber with moderate atherosclerotic plaque. A few borderline enlarged lymph nodes noted in the lower mediastinum. The esophagus shows small hiatal hernia and mild esophageal wall thickening suggesting peptic disease. The thyroid is unremarkable. Pulmonary parenchymal windows show moderate bilateral pleural effusions. There is moderate patchy alveolar and groundglass airspace disease in both posterior right upper and lower lobes and mild patchy airspace disease in the posterior left lower lobe. Scattered interlobular edema appreciated. IMPRESSION: 1. No pulmonary emboli identified. 2. Moderate bilateral pleural effusions. Moderate patchy infiltrates scattered throughout the right upper middle and lower lobes with smaller infiltrates in the posterior left upper and lower lobes. Aspiration is suspected. 3. Mild underlying CHF. 4.Small hiatal hernia with diffuse esophageal wall thickening suggesting peptic disease. Patient is at risk for aspiration Interpreted and Authenticated by: Daniel Quiroz 03/22/21
[2021-03-22] MEDS ORDERED: FUROSEMIDE 40 MG/4 ML VIAL IV ONE (20:07)
[2021-03-22] MEDS: SENNOSIDES 1 TABLET PO SCH (20:57)
[2021-03-22] MEDS ORDERED: CIPROFLOXACIN 500 MG TABLET PO SCH (21:00)
[2021-03-22] MEDS: ENOXAPARIN 60 MG/0.6 ML SYRINGE SQ SCH (21:38)
[2021-03-22] MEDS: ATORVASTATIN 20 MG TABLET PO SCH (21:39)
[2021-03-22] MEDS: cefTRIAXone 2 GM in DEXTROSE 5% IN WATER 50 ML IV SCH (21:46)
[2021-03-23] MEDS: HYDROCODONE/APAP 7.5/325MG TABLET PO PRN ×2 (03:57→18:29)
--- NOTE | 2021-03-23 04:01 | Ultrasound Report ---
CLINICAL INFORMATION: Pre-Thoracentesis fluid assessment COMPARISON: None. FINDINGS: Moderate bilateral simple pleural effusion appreciated IMPRESSION: Moderate bilateral simple pleural effusions. Interpreted and Authenticated by: Daniel Quiroz 03/23/21
[2021-03-23] MEDS: 0.9 % SODIUM CHLORIDE 10 ML SYRINGE IV SCH ×3 (05:02→21:09)
[2021-03-23] MEDS: metroNIDAZOLE 500 MG TABLET PO SCH ×3 (05:58→21:12)
--- NOTE | 2021-03-23 07:01 | Internal Med Progress Note ---
SUBJECTIVE Subjective Patient information: Note initiated : 03/23/21 at 6:57 am Service Date, if different from initiated Date: [] Patient: Torrey Castro a 85 y/o M admitted on 03/21/21 for n/v/d. Chief Complaint: [] Interval history: History of present illness: Mr. Castro is a 85 year old M The ED with nausea vomiting diarrhea abdominal pain and history of diverticulitis. Patient is a poor historian and most of history obtained from EMS. History of stroke with memory deficits. Mildly elevated lactate of 2.6. CT abdomen pelvis in ED reported diverticulitis. Patient started on IV antibiotics hospital. *Per updated information from daughter - Pt commonly has episodes of n/v/d at home, just that it seemed to be a bit worse this time. 03/22 Patient slept okay. No nausea vomiting diarrhea. 03/23 Patient states he feels little better today. When I went in there he is on 5 L oxygen or dropped him down to 2 and he has good sats while a conversation with him. He is denying shortness of breath or cough. CTA showed no PE but did show infiltrates likely aspirated on admit when he had all the nausea vomiting. He does have some moderate bilateral effusions. Potentially to get a thoracentesis today however depend on radiology and him being on anticoagulation. Review of Systems: denies headache/fever/chills/nausea/vomiting/chest or abdominal pain/diarrhea. Otherwise see above. Constitutional Vitals: Vital Signs Temp Pulse Resp BP Pulse Ox 98.0 F 67 20 140/71 99 03/23/21 03:39 03/23/21 03:39 03/23/21 03:39 03/23/21 03:39 03/23/21 03:39 Period Temp Pulse Resp BP Sys/Crespo Pulse Ox Last 24 Hr 98.0 F-98.8 F 67-79 18-26 126-167/55-75 90-99 Intake and Output 03/22/21 03/23/21 03/23/21 21:59 05:59 13:59 Intake Total 240 170 Output Total 850 2195 Balance - Weight 68.22 kg Intake & Output: Intake & Output 03/22/21 03/23/21 03/23/21 21:59 05:59 13:59 Intake Total 240 170 Output Total 850 2195 Balance -610 2025 Weight 68.22 kg Intake: IV 50 Rocephin 2 gm In Dextrose 5% in 50 Water 50 ml @ 100 mls/hr IV Q24H PENDING SALE TO [facility] Rx#:[id number] Oral 240 120 Output: Urine Catheter Amount 600 2195 Uretheral (Antonio) 600 Void Amount 250 Other: Meal Nourishment/Supplement Percent of Meal Consumed 100% Feeding Ability Assist with Tray Set Up Urine Appearance Clear Clear Uretheral (Antonio) Clear Urine Color Dark Yellow Bright Yellow Uretheral (Antonio) Bright Yellow Urine Odor Normal Normal Uretheral (Antonio) Normal Stool Size Moderate Stool Color Green Stool Consistency Liquid # Voids 1 # Bowel Movements 1 # of times incontinent of 1 Bowels Exam: General: Alert, Awake, No acute Distress Eyes/N/T: EOMI, Head/Neck: neck supple, n CV: RRR, No murmurs, Pulm: Clear b/l, no wheezing/rhonchi/rales Abd: soft, mininmal generalized TTP to deep palpation, +BS x4 Ext: no clubbing/cyanosis/edema Neuro: Alert, no focal deficits, moves all extremities,memory deficits. Skin: warm/dry OBJ DATA Labs CBC & Chem 7: 03/21/21 07:41 03/22/21 05:39 Labs: Abnormal Lab Results 03/22/21 03/21/21 03/21/21 05:39 07:41 07:41 RBC 3.23 L Hgb 10.3 L Hct 29.8 L Plt Count 121 L Neut % (Auto) Lymph % (Auto) Lymph # (Auto) Seg Neutrophils % 88 H Lymphocytes % 3 L Reactive Lymphocytes 4 H PT INR VBG Lactic Acid Potassium 3.1 L Chloride 114 H 112 H Carbon Dioxide 20 L Glucose 109 H 126 H Calcium 8.2 L 8.3 L Phosphorus 2.1 L 2.4 L Magnesium 2.6 H Total Bilirubin 1.9 H 2.5 H AST 47 H Lactate Dehydrogenase 356 H 313 H Troponin T Total Protein 5.4 L 5.4 L Globulin 1.8 L 1.8 L Urine Protein Urine Ketones Urine Mucus Urine Opiates Screen U Marijuana (THC) Screen 03/20/21 03/20/21 03/20/21 21:07 21:07 21:05 RBC 3.39 L Hgb 10.9 L Hct 30.5 L Plt Count Neut % (Auto) 86.7 H Lymph % (Auto) 8.1 L Lymph # (Auto) 0.60 L Seg Neutrophils % Lymphocytes % Reactive Lymphocytes PT INR VBG Lactic Acid Potassium Chloride Carbon Dioxide 19 L Glucose 134 H Calcium Phosphorus Magnesium Total Bilirubin 2.1 H AST Lactate Dehydrogenase Troponin T 0.04 H* Total Protein 5.7 L Globulin 1.9 L Urine Protein Urine Ketones Urine Mucus Urine Opiates Screen U Marijuana (THC) Screen 03/20/21 03/20/21 03/20/21 21:05 21:05 01:36 RBC Hgb Hct Plt Count Neut % (Auto) Lymph % (Auto) Lymph # (Auto) Seg Neutrophils % Lymphocytes % Reactive Lymphocytes PT 16.0 H INR 1.2 H VBG Lactic Acid 2.6 H Potassium Chloride Carbon Dioxide Glucose Calcium Phosphorus Magnesium Total Bilirubin AST Lactate Dehydrogenase Troponin T Total Protein Globulin Urine Protein 30 A Urine Ketones 5 A Urine Mucus Few A Urine Opiates Screen U Marijuana (THC) Screen 03/20/21 01:36 RBC Hgb Hct Plt Count Neut % (Auto) Lymph % (Auto) Lymph # (Auto) Seg Neutrophils % Lymphocytes % Reactive Lymphocytes PT INR VBG Lactic Acid Potassium Chloride Carbon Dioxide Glucose Calcium Phosphorus Magnesium Total Bilirubin AST Lactate Dehydrogenase Troponin T Total Protein Globulin Urine Protein Urine Ketones Urine Mucus Urine Opiates Screen Suspect positive A U Marijuana (THC) Screen Suspect positive A Meds: Medications Acetaminophen (Acetaminophen 325 Mg Tablet) 650 mg PO Q6HP PRN; Protocol PRN Reason: Per Pain Protocol/Fever > 101 Hydrocodone Bitart/Acetaminophen (Hydrocodone/Apap 7.5/325mg Tablet) 1 - 2 tab PO Q6HP PRN; Protocol PRN Reason: Per Pain Protocol Last Admin: 03/23/21 03:57 Dose: 2 tab Documented by: Albuterol/Ipratropium (Ipratropium/Albuterol 3 Ml Ampul.Neb) 3 ml NEB Q4HP PRN PRN Reason: Shortness Of Breath Last Admin: 03/22/21 18:42 Dose: 3 ml Documented by: Amlodipine Besylate (Amlodipine 10 Mg Tablet) 10 mg PO DAILY PENDING SALE TO [facility] Last Admin: 03/22/21 08:56 Dose: 10 mg Documented by: Lipase/Protease/Amylase (Lipase/Protease/Amylase 1 Cap Capsule) 2 cap PO TIDCC PENDING SALE TO [facility] Last Admin: 03/22/21 18:03 Dose: 2 cap Documented by: Atorvastatin Calcium (Atorvastatin 20 Mg Tablet) 20 mg PO HS PENDING SALE TO [facility] Last Admin: 03/22/21 21:39 Dose: 20 mg Documented by: Clopidogrel Bisulfate (Clopidogrel 75 Mg Tablet) 75 mg PO DAILY PENDING SALE TO [facility] Last Admin: 03/22/21 08:56 Dose: 75 mg Documented by: Docusate Sodium (Docusate Sodium 100 Mg Capsule) 100 mg PO BID PENDING SALE TO [facility] Last Admin: 03/22/21 20:58 Dose: Not Given Documented by: Enoxaparin Sodium (Enoxaparin 60 Mg/0.6 Ml Syringe) 60 mg SQ BID PENDING SALE TO [facility] Last Admin: 03/22/21 21:38 Dose: 60 mg Documented by: Famotidine (Famotidine/Pf 20 Mg/2 Ml Vial) 20 mg IV Q12 PENDING SALE TO [facility] Last Admin: 03/22/21 21:39 Dose: 20 mg Documented by: Gabapentin (Gabapentin 300 Mg Capsule) 300 mg PO TID PENDING SALE TO [facility] Last Admin: 03/22/21 21:39 Dose: 300 mg Documented by: Potassium Chloride 40 meq/ (Dextrose) 520 mls @ 130 mls/hr IV UD PRN PRN Reason: Potassium < 3 Magnesium Sulfate (Magnesium Sulfate) 2 gm in 50 mls @ 50 mls/hr IV UD PRN PRN Reason: Magnesium </= 1.6 Last Infusion: 03/22/21 04:50 Dose: Infused Documented by: Ceftriaxone Sodium 2 gm/ (Dextrose) 50 mls @ 100 mls/hr IV Q24H PENDING SALE TO [facility]; Protocol Last Infusion: 03/22/21 22:15 Dose: Infused Documented by: Labetalol HCl (Labetalol 5 Mg/Ml Ml) 0 mg IV Q2HP PRN PRN Reason: Hypertension Metoprolol Succinate (Metoprolol Succinate 50 Mg Tab.Xl.24h) 100 mg PO DAILY PENDING SALE TO [facility] Last Admin: 03/22/21 08:57 Dose: 100 mg Documented by: Metronidazole (Metronidazole 500 Mg Tablet) 500 mg PO Q8 PENDING SALE TO [facility]; Protocol Last Admin: 03/23/21 05:58 Dose: 500 mg Documented by: Morphine Sulfate (Morphine 4 Mg/Ml Vial) 4 mg IV Q3HP PRN; Protocol PRN Reason: Per Pain Protocol Last Admin: 03/22/21 18:42 Dose: 4 mg Documented by: Ondansetron HCl (Ondansetron 4 Mg Odt Tablet) 4 mg SL Q6HP PRN PRN Reason: Nausea And Vomiting Last Admin: 03/22/21 12:02 Dose: 4 mg Documented by: Ondansetron HCl (Ondansetron 4 Mg/2 Ml Vial) 4 mg IV Q4HP PRN PRN Reason: Nausea And Vomiting Polyethylene Glycol (Polyethylene Glycol 3350 17 Gm Packet) 17 gm PO DAILYP PRN PRN Reason: Constipation Potassium Chloride (Potassium Chloride 20 Meq Tablet) 40 meq PO UD PRN PRN Reason: Potssium is 3-3.5 Last Admin: 03/21/21 21:29 Dose: 40 meq Documented by: Potassium Chloride (Potassium Chloride 20 Meq Tablet) 40 meq PO UD PRN PRN Reason: Potassium < 3 Senna (Sennosides 1 Tablet) 2 tab PO HS PENDING SALE TO [facility] Last Admin: 03/22/21 20:57 Dose: Not Given Documented by: Sodium Chloride (0.9 % Sodium Chloride 10 Ml Syringe) 10 ml IV Q8 PENDING SALE TO [facility] Last Admin: 03/23/21 05:02 Dose: 10 ml Documented by: Tamsulosin HCl (Tamsulosin 0.4 Mg Capsule) 0.4 mg PO BID PENDING SALE TO [facility] Last Admin: 03/22/21 21:39 Dose: 0.4 mg Documented by: A/P Narrative A/P Narrative: A: *small bowel Enteritis: Diverticulitis per rads read in ED but not on in-house read *N/V/D: common at home(?2/2 imatinib), none since admit. *Likely Aspiration PNA, on admit: *pleural effusions: *Acute hypoxic resp failure: 2/2 above -on 2L NC *LLE DVT: no PE on CTA *HTN/HLD: *CKD III: *h/o CVA w/residual memory deficits: on plavix *Chronic LBP: on sree/norco *h/o Chronic pancreatitis: on creon *h/o CML: follows with [facility] *h/o graded II diastolic cardiac dysfunction *suspected COPD based on imaging and history P: -Rocephin/flagyl -ST eval -anticoagulation -prn lasix -cont home ccb/bb, -possible thora given hypoxia -cont home statin/plavix -CM for needs, was at [facility] earlier this year -pt/ot -f/u with PCP/Oncology about recurrent n/v/d (?oncology medication) -ppx: lovenox DNR Time Spent With Patient Time: Total time spent is greater than 50% in coordination of care (as documented) at patient's floor/unit and/or counseling patient:
[2021-03-23 08:05] LABS: INR 1.2 (0.9-1.1); Prothrombin Time 15.9 sec (11.9-14.5)
[2021-03-23] MEDS: FAMOTIDINE/PF 20 MG/2 ML VIAL IV SCH ×2 (08:11→21:10)
[2021-03-23] MEDS: CLOPIDOGREL 75 MG TABLET PO SCH ×2 (08:12→10:22)
[2021-03-23] MEDS: METOPROLOL SUCCINATE 50 MG TAB.XL.24H PO SCH (08:13)
[2021-03-23] MEDS: cefTRIAXone 2 GM in DEXTROSE 5% IN WATER 50 ML IV SCH (08:13)
[2021-03-23] MEDS: GABAPENTIN 300 MG CAPSULE PO SCH ×3 (08:13→21:09)
[2021-03-23] MEDS: DOCUSATE SODIUM 100 MG CAPSULE PO SCH (08:14)
[2021-03-23] MEDS: ENOXAPARIN 60 MG/0.6 ML SYRINGE SQ SCH ×2 (08:14→21:09)
[2021-03-23] MEDS: amLODIPine 10 MG TABLET PO SCH (08:14)
[2021-03-23] MEDS: LIPASE/PROTEASE/AMYLASE 1 CAP CAPSULE PO SCH ×3 (08:14→17:26)
[2021-03-23] MEDS: TAMSULOSIN 0.4 MG CAPSULE PO SCH ×2 (08:14→21:09)
[2021-03-23 08:16] LABS: Partial Thromboplastin Time 51.6 sec (20.0-37.0)
[2021-03-23] MEDS ORDERED: PHOSPHORUS 250 MG TABLET PO SCH (09:00)
[2021-03-23 09:36] LABS: ALT/SGPT 18 U/L (<40); AST/SGOT 29 U/L (<40); Albumin 3.3 gm/dL (3.2-5.2); Albumin/Globulin Ratio 1.9 (1.0-2.3); Alkaline Phosphatase 51 U/L (39-117); Bilirubin,Direct 0.3 mg/dL (<0.3); Blood Urea Nitrogen 9 mg/dL (8-23); Calcium 8.1 mg/dL (8.6-10.4); Carbon Dioxide 26 mmol/L (22-30); Chloride 106 mmol/L (96-108); Globulin 1.7 gm/dL (2.2-3.7); Glomerular Filtration Rate 54; Glucose 101 mg/dL (70-105); Lactate Dehydrogenase 241 U/L (135-225); Phosphorous 2.7 mg/dL (2.5-4.5); Triglycerides 91 mg/dL (<150)
[2021-03-23] MEDS ORDERED: LOPERAMIDE 2 MG CAPSULE PO ONE (09:45)
--- NOTE | 2021-03-23 09:49 | XRay Report ---
CLINICAL INFORMATION: POST THORA LT COMPARISON: 08/26/2020 FINDINGS: Moderate cardiomegaly is unchanged. Mildly tortuous thoracic aorta again noted. The remaining mediastinum and pulmonary vessels are normal. Moderate patchy infiltrate have developed in the right mid and lower lung. Small right pleural effusion noted. Following left thoracentesis, there is no residual left pleural effusion. No evidence of pneumothorax or other complication. Minor atelectasis seen in the left base. IMPRESSION: Following left thoracentesis, no residual left pleural effusion. No pneumothorax or other complication. Moderate patchy right mid and lower lung infiltrate with small right pleural effusion. This is new from prior x-ray Interpreted and Authenticated by: Daniel Quiroz 03/23/21
--- NOTE | 2021-03-23 10:15 | Ultrasound Report ---
Ultrasound-guided thoracentesis CLINICAL INFORMATION: Left pleural effusion TECHNIQUE: Procedure and risks including possibility of bleeding, infection, and pneumothorax were explained to the patient. They understood and wished to proceed. With the patient in upright position, the fluid was first sonographically localized over the posterior left 10th intercostal space at posterior axillary line. The skin overlying this region was marked, prepped and locally anesthetized with 1% lidocaine using a 25-gauge needle to the level the parietal pleura. An 18-gauge Yueh needle was then advanced under sonographic guidance into the pleural fluid and approximately 500 cc of simple appearing transudative fluid was aspirated. Post procedure scanning shows only minimal residual fluid. Patient tolerated procedure well without apparent complication. Follow-up chest x-ray to be obtained IMPRESSION: Successful thoracentesis yielding 500 cc of transudative appearing simple pleural fluid. No apparent complication Interpreted and Authenticated by: Daniel Quiroz 03/23/21
[2021-03-23] MEDS: POTASSIUM CHLORIDE 20 MEQ TABLET PO PRN (10:16)
[2021-03-23 14:10] LABS: LDH,Pleural Fluid 92 U/L (<122)
[2021-03-23 14:52] LABS: pH,Body Fluid 7.77
[2021-03-23 15:36] LABS: Appearance,Pleural Fluid Clear; Color,Pleural Fluid Yellow; Lymphocytes,Pleural Fluid 44 %; Monocytes,Pleural Fluid 50 %; Neutrophils,Pleural Fluid 6 %; Nucleated Cells,Pleural Fld 325 /cumm; RBC,Pleural Fluid <50,000 /cumm
[2021-03-23] MEDS: LOPERAMIDE 2 MG CAPSULE PO PRN ×2 (18:29→21:25)
[2021-03-23] MEDS: ATORVASTATIN 20 MG TABLET PO SCH (21:09)
[2021-03-24] MEDS: metroNIDAZOLE 500 MG TABLET PO SCH (05:49)
[2021-03-24] MEDS: 0.9 % SODIUM CHLORIDE 10 ML SYRINGE IV SCH (05:49)
[2021-03-24 08:40] LABS: Blood Urea Nitrogen 9 mg/dL (8-23); Calcium 7.8 mg/dL (8.6-10.4); Carbon Dioxide 22 mmol/L (22-30); Chloride 108 mmol/L (96-108); Glomerular Filtration Rate 60; Glucose 96 mg/dL (70-105)
[2021-03-24] MEDS ORDERED: POTASSIUM CHLORIDE 20 MEQ TABLET PO ONE (08:52)
[2021-03-24] MEDS: LIPASE/PROTEASE/AMYLASE 1 CAP CAPSULE PO SCH (10:54)
[2021-03-24] MEDS: ENOXAPARIN 60 MG/0.6 ML SYRINGE SQ SCH (10:55)
[2021-03-24] MEDS: GABAPENTIN 300 MG CAPSULE PO SCH (10:55)
[2021-03-24] MEDS: CLOPIDOGREL 75 MG TABLET PO SCH (10:55)
[2021-03-24] MEDS: METOPROLOL SUCCINATE 50 MG TAB.XL.24H PO SCH (10:55)
[2021-03-24] MEDS: amLODIPine 10 MG TABLET PO SCH (10:55)
[2021-03-24] MEDS: FAMOTIDINE/PF 20 MG/2 ML VIAL IV SCH (10:55)
[2021-03-24] MEDS: TAMSULOSIN 0.4 MG CAPSULE PO SCH (10:55)
[2021-03-24] MEDS: cefTRIAXone 2 GM in DEXTROSE 5% IN WATER 50 ML IV SCH (10:56)
--- NOTE | 2021-03-25 09:54 | Non-GYN Cytology Report ---
Non Wrapping Machine Operator Cytology NG Diagnosis PLEURAL FLUID, THORACENTESIS: --- NO ATYPICAL OR MALIGNANT CELLS IDENTIFIED. --- MESOTHELIAL AND CHRONIC INFLAMMATORY CELLS. NG Micro Description Cytologic preparations of one ThinPrep slide, one Pap stained cytospin slide, one DifQuik stained cytospin slide, one Hunt Giemsa stained cytospin slide and one cell block preparation are reviewed. Preparations show abundant mesothelial cells with benign features and associated chronic lymphohistiocytic inflammation. No atypical or malignant cells identified. NG Gross Description Received 450 mL yellow cloudy fluid. Electronically Signed Gisela Melgoza MD, FCAP Electronically Signed 03/25/2021 09:53
[2021-03-30 08:21] LABS: Opiate Confirmation Positive
[2021-03-30 08:22] LABS: Cannabinoid Confirmation Positive
== END 2021-03-24 11:45 | DRG 385 ==
LOC: ED 20:20 → MEDSUR 03-21
PROVIDERS: ADMIT Internal Medicine; ATTEND Internal Medicine

== ENCOUNTER 2022-08-23 09:07 | Inpatient (IN) ==
[2022-08-23 09:29] LABS: POC Calcium, Ionized 1.17 (1.16-1.32); POC Creatinine 3.3 (0.6-1.2); POC Potassium 4.8 (3.3-5.1)
--- NOTE | 2022-08-23 10:13 | Emergency Department Note ---
HPI General Chief complaint: Altered Mental Status Stated complaint: altered mental status Time Seen by Provider: 08/23/22 09:17 Source: patient and EMS Mode of arrival: EMS History of Present Illness HPI Narrative: Narrative: Patient is an 87-year-old male with a complex medical history who presents to the emergency department due to confusion. Patient at this time is having some difficulty answering questions, and repeats that he is unsure why he is here over and over again. He does endorse confusion. Patient's daughter is at bed side, and she states that patient is significantly confused now compared to normal. She states that he has had a hard time speaking to her and answering her questions. She states that she was told that he was in his chair all night, and when she was found in the morning he was confused. It is unknown when patient's last known well was. Related Data Home Medications Medication Instructions Recorded Confirmed amlodipine 10 mg tablet 10 mg PO QAM 03/20/21 08/24/22 atorvastatin 10 mg tablet 10 mg PO QDAY 03/20/21 08/24/22 gabapentin 300 mg capsule 300 mg PO TID 03/20/21 08/24/22 lipase 3,000-protease 2 cap PO TID 03/20/21 08/24/22 9,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,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, delayed rel (Creon) tamsulosin 0.4 mg capsule 0.4 mg PO BID UTI symptoms 03/21/21 08/24/22 Vitamin D3 2,000 08/24/22 calcium carbonate 08/24/22 docusate sodium 100 mg capsule mg PO 08/24/22 (Colace) furosemide 40 mg tablet 1 tab PO QDAY 08/24/22 08/24/22 imatinib 100 mg tablet tab PO 08/24/22 Previous Rx's Medication Instructions Recorded ondansetron 4 mg disintegrating 4 mg PO Q8H PRN nausea and 03/22/21 tablet vomiting #30 tabs apixaban 5 mg tablet (Eliquis) 5 mg PO BID #60 tabs 03/23/21 hydrocodone 7.5 mg-acetaminophen 1 tab PO Q4-6HP PRN Pain #10 tabs 03/24/21 325 mg tablet morphine 30 mg tablet,extended 15 mg PO BIDP PRN Pain #7 tabs 08/24/22 release Allergies Allergy/AdvReac Type Severity Reaction Status Date / Time methocarbamol Allergy Severe Anaphylaxis Verified 08/24/22 08:47 acetaminophen AdvReac Unknown Verified 08/24/22 08:47 [From Darvocet-N] Enalapril AdvReac Unknown Verified 08/24/22 08:47 propoxyphene AdvReac Unknown Verified 08/24/22 08:47 [From Darvocet-N] Review of Systems ROS ROS Narrative: Narrative: Limitations: ROS unobtainable due to patients medical condition [facility] Narrative Patient History Narrative: Narrative: Medical/Surgical/Family History All Active Problems (Updated 08/26/22 @ 11:02 by Keith Herman MD) KAMINI (acute kidney injury) (Acute) Acute confusion (Acute) Hallucination, visual (Acute) Acute renal failure superimposed on stage 3a chronic kidney disease (Acute) Diverticulitis (Acute) Elevated troponin (Acute) Abdominal pain (Acute) Abdominal pain, acute (Acute) History of kidney stones (Acute) Degenerative joint disease of spine (Acute) Chronic, continuous use of opioids (Acute) Hypertension, essential (Acute) Acute abdominal pain in right flank (Acute) Diarrhea (Acute) Nausea and vomiting (Acute) Atherosclerosis (Acute) Medical History Abdominal pain Chronic, 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 Diverticulitis Diverticulitis History of kidney stones Hypertension, essential Hypokalemia Influenza Musculoskeletal chest pain Pneumonia Surgical History History of lumbosacral spine surgery Family History Father Cancer Mother Cancer Social History Smoking Status: Never smoker Alcohol Intake Frequency: does not drink Substance Use: does not use Exam Narrative Narrative: Narrative: General General appearance: Present alert, anxious, in no apparent distress and sleepy; Absent appears intoxicated Head Head: Present atraumatic and normocephalic Eye Eye: Present PERRL and EOMI; Absent scleral icterus or nystagmus ENT ENT: Present mucous membranes moist; Absent nasal congestion Neck Neck: Present full ROM; Absent tenderness Chest Chest: Present normal inspection and symmetric chest wall rise; Absent tenderness Respiratory Respiratory: Present normal lung sounds bilaterally; Absent respiratory distress or accessory muscle use Cardiovascular Cardiovascular: Present regular rate, normal rhythm and normal heart sounds Adbominal Abdominal: Present soft and normal bowel sounds; Absent distention or tenderness Extremities Extremities: Present normal inspection and full ROM; Absent tenderness Back Back: Present normal inspection and full ROM; Absent tenderness Neurological Neurological: Present alert, CN II-XII intact, normal gait and reflexes normal; Absent motor sensory deficit Psychiatric Psychiatric: Present anxious Skin Skin: Present warm (WNL), dry and normal color Course Vital Signs Vital signs: Vital Signs Temperature 98.0 F 08/23/22 09:08 Pulse Rate 77 08/23/22 09:08 Respiratory Rate 22 08/23/22 09:08 Blood Pressure 183/106 08/23/22 09:08 Pulse Oximetry (%) 84 L 08/23/22 09:08 Oxygen Delivery Method 08/23/22 09:08 Temperature 98.1 F 08/24/22 15:36 Pulse Rate 74 08/24/22 15:36 Respiratory Rate 16 08/24/22 15:36 Blood Pressure 140/68 08/24/22 15:36 Pulse Oximetry (%) 97 08/24/22 15:36 Oxygen Delivery Method 08/24/22 15:36 Oxygen Flow Rate (L/min) 2 08/24/22 06:50 [facility] MDM Narrative Medical decision making narrative: Narrative: Patient is an 87-year-old male who presents to the emergency department due to confusion. He is significantly confused and is unable to give much history at this time. There are not any focal signs or symptoms aside from his confusion. Patient was discussed with a neurologist in [place] who did recommend that he have CT imaging. Patient's labs are significant for a creatinine of 3.3. A CT head without contrast is unremarkable. After patient's initial labs have been done patient began to become more confused with hallucinations as well. Patient was describing a man on a horse on the TV, but patient does not have a TV in his room. Upon reexamination patient more somnolent, but was still arousable. Vital signs were still appropriate as well. Given patient's KAMINI and confusion I requested admission. histology supervisor requested that I speak to nephrology given his KAMINI. I spoke with nephrology who states that he will follow along if needed. I then spoke to Dr. Faye who agreed to see and evaluate patient for admission. Lab Data Result diagrams: 08/23/22 10:26 08/24/22 05:27 Labs: Lab Results 08/23/22 08/23/22 08/23/22 Range/Units 09:25 10:26 10:26 WBC 9.9 (4.5-11.0) K/mcL RBC 4.16 L (4.63-6.08) M/mcL Hgb 10.3 L (13.7-17.5) g/dL Hct 33.8 L (40.1-51.0) % POC Hct 36.0 L (41-55) MCV 81.3 (80.0-100.0) fL MCH 24.8 L (26.0-34.0) pg MCHC 30.5 L (31.0-36.0) g/dL RDW 15.0 H (11.5-14.5) % Plt Count 252 (140-440) K/mcL MPV 10.1 (8.8-12.5) fL Immature Gran % (Auto) 0.8 H (0.0-0.5) % Neut % (Auto) 88.3 H (38.0-78.0) % Lymph % (Auto) 5.6 L (15.5-49.0) % [place] % (Auto) 5.2 (1.0-12.0) % Eos % (Auto) 0 (0.0-7.0) % Baso % (Auto) 0.1 (0.0-2.0) % Lymph # (Auto) 0.55 L (1.50-4.80) K/mcL [place] # (Auto) 0.51 (0.10-0.90) K/mcL Eos # (Auto) 0 (0.00-0.70) K/mcL Baso # (Auto) 0.01 (0.00-0.30) K/mcL Immature Gran # 0.08 H (0.00-0.05) K/mcl Absolute Neutrophils 8.73 H (1.80-8.00) K/mcL POC Sodium 135 (133-145) POC Potassium 4.8 (3.3-5.1) POC Chloride 96 (96-108) POC Total CO2 26.0 (22-30) POC BUN 34 H (6-20) POC Creatinine 3.3 H (0.6-1.2) POC Glucose 162 H (70-105) POC WB Ioniz Calcium 1.17 (1.16-1.32) Total Bilirubin 0.5 (0.1-1.0) mg/dL Direct Bilirubin < 0.2 (0-0.3) mg/dL AST 30 (<40) U/L ALT 21 (<40) U/L Alkaline Phosphatase 89 (39-117) U/L Total Protein 6.5 (5.9-8.4) gm/dL Albumin 3.9 (3.2-5.2) gm/dL Globulin 2.6 (2.2-3.7) gm/dL Urine Color Urine Appearance (Clear) Urine pH (5.0-9.0) Ur Specific [place] (1.000-1.035) Urine Protein (Negative) mg/dL Urine Glucose (UA) (Negative) mg/dL Urine Ketones (Negative) mg/dL Urine Occult Blood (Negative) mg/dL Urine Nitrate (Negative) Urine Bilirubin (Negative) mg/dL Urine Urobilinogen mg/dL Ur Leukocyte Esterase (Negative) /uL Ur Culture Indicated? Urine Osmolality (80-1000) mOSM/kg Urine Opiates Screen Ur Oxycodone Screen U Oxycod/Oxymor Confirm Urine Methadone Screen Ur Methadone Confirm Ur Barbiturates Screen Ur Barbiturate Confirm Ur Phencyclidine Scrn Urine PCP Confirm Ur Amphetamines Screen U Amphetamines Confirm U Benzodiazepines Scrn Ur Benzodiazepine, Qnt Urine Cocaine Screen Urine Cocaine Confirm U Cannabinoids Confirm U Marijuana (THC) Screen Ethyl Alcohol mg/dL mg/dL Ethyl Alcohol g/dL (<0.010) gm/dL 08/23/22 08/23/22 08/23/22 Range/Units 10:26 11:20 11:20 WBC (4.5-11.0) K/mcL RBC (4.63-6.08) M/mcL Hgb (13.7-17.5) g/dL Hct (40.1-51.0) % POC Hct (41-55) MCV (80.0-100.0) fL MCH (26.0-34.0) pg MCHC (31.0-36.0) g/dL RDW (11.5-14.5) % Plt Count (140-440) K/mcL MPV (8.8-12.5) fL Immature Gran % (Auto) (0.0-0.5) % Neut % (Auto) (38.0-78.0) % Lymph % (Auto) (15.5-49.0) % [place] % (Auto) (1.0-12.0) % Eos % (Auto) (0.0-7.0) % Baso % (Auto) (0.0-2.0) % Lymph # (Auto) (1.50-4.80) K/mcL [place] # (Auto) (0.10-0.90) K/mcL Eos # (Auto) (0.00-0.70) K/mcL Baso # (Auto) (0.00-0.30) K/mcL Immature Gran # (0.00-0.05) K/mcl Absolute Neutrophils (1.80-8.00) K/mcL POC Sodium (133-145) POC Potassium (3.3-5.1) POC Chloride (96-108) POC Total CO2 (22-30) POC BUN (6-20) POC Creatinine (0.6-1.2) POC Glucose (70-105) POC WB Ioniz Calcium (1.16-1.32) Total Bilirubin (0.1-1.0) mg/dL Direct Bilirubin (0-0.3) mg/dL AST (<40) U/L ALT (<40) U/L Alkaline Phosphatase (39-117) U/L Total Protein (5.9-8.4) gm/dL Albumin (3.2-5.2) gm/dL Globulin (2.2-3.7) gm/dL Urine Color Yellow Urine Appearance Clear (Clear) Urine pH 5.0 (5.0-9.0) Ur Specific [place] 1.019 (1.000-1.035) Urine Protein Negative (Negative) mg/dL Urine Glucose (UA) Negative (Negative) mg/dL Urine Ketones Negative (Negative) mg/dL Urine Occult Blood Negative (Negative) mg/dL Urine Nitrate Negative (Negative) Urine Bilirubin Negative (Negative) mg/dL Urine Urobilinogen Negative mg/dL Ur Leukocyte Esterase Negative (Negative) /uL Ur Culture Indicated? No Urine Osmolality (80-1000) mOSM/kg Urine Opiates Screen Suspect positive A Ur Oxycodone Screen None detected U Oxycod/Oxymor Confirm TNP Urine Methadone Screen None detected Ur Methadone Confirm TNP Ur Barbiturates Screen None detected Ur Barbiturate Confirm TNP Ur Phencyclidine Scrn None detected Urine PCP Confirm TNP Ur Amphetamines Screen None detected U Amphetamines Confirm TNP U Benzodiazepines Scrn None detected Ur Benzodiazepine, Qnt TNP Urine Cocaine Screen None detected Urine Cocaine Confirm TNP U Cannabinoids Confirm TNP U Marijuana (THC) Screen None detected Ethyl Alcohol mg/dL < 10.0 mg/dL Ethyl Alcohol g/dL < 0.010 (<0.010) gm/dL 08/23/22 Range/Units 11:20 WBC (4.5-11.0) K/mcL RBC (4.63-6.08) M/mcL Hgb (13.7-17.5) g/dL Hct (40.1-51.0) % POC Hct (41-55) MCV (80.0-100.0) fL MCH (26.0-34.0) pg MCHC (31.0-36.0) g/dL RDW (11.5-14.5) % Plt Count (140-440) K/mcL MPV (8.8-12.5) fL Immature Gran % (Auto) (0.0-0.5) % Neut % (Auto) (38.0-78.0) % Lymph % (Auto) (15.5-49.0) % [place] % (Auto) (1.0-12.0) % Eos % (Auto) (0.0-7.0) % Baso % (Auto) (0.0-2.0) % Lymph # (Auto) (1.50-4.80) K/mcL [place] # (Auto) (0.10-0.90) K/mcL Eos # (Auto) (0.00-0.70) K/mcL Baso # (Auto) (0.00-0.30) K/mcL Immature Gran # (0.00-0.05) K/mcl Absolute Neutrophils (1.80-8.00) K/mcL POC Sodium (133-145) POC Potassium (3.3-5.1) POC Chloride (96-108) POC Total CO2 (22-30) POC BUN (6-20) POC Creatinine (0.6-1.2) POC Glucose (70-105) POC WB Ioniz Calcium (1.16-1.32) Total Bilirubin (0.1-1.0) mg/dL Direct Bilirubin (0-0.3) mg/dL AST (<40) U/L ALT (<40) U/L Alkaline Phosphatase (39-117) U/L Total Protein (5.9-8.4) gm/dL Albumin (3.2-5.2) gm/dL Globulin (2.2-3.7) gm/dL Urine Color Urine Appearance (Clear) Urine pH (5.0-9.0) Ur Specific [place] (1.000-1.035) Urine Protein (Negative) mg/dL Urine Glucose (UA) (Negative) mg/dL Urine Ketones (Negative) mg/dL Urine Occult Blood (Negative) mg/dL Urine Nitrate (Negative) Urine Bilirubin (Negative) mg/dL Urine Urobilinogen mg/dL Ur Leukocyte Esterase (Negative) /uL Ur Culture Indicated? Urine Osmolality 380 (80-1000) mOSM/kg Urine Opiates Screen Ur Oxycodone Screen U Oxycod/Oxymor Confirm Urine Methadone Screen Ur Methadone Confirm Ur Barbiturates Screen Ur Barbiturate Confirm Ur Phencyclidine Scrn Urine PCP Confirm Ur Amphetamines Screen U Amphetamines Confirm U Benzodiazepines Scrn Ur Benzodiazepine, Qnt Urine Cocaine Screen Urine Cocaine Confirm U Cannabinoids Confirm U Marijuana (THC) Screen Ethyl Alcohol mg/dL mg/dL Ethyl Alcohol g/dL (<0.010) gm/dL EKG Data EKG #1: EKG attestation: Yes I reviewed and interpreted this EKG. EKG results narrative: Normal sinus rhythm with a rate of 60, left axis deviation, MN of 255, QRS of 88, QTc of 409, T wave inversion in lead III, T wave flattening in aVF, and absence of ST elevation or depression. Discharge Plan Patient/Caregiver Discharge Instructions Pt seen by [employer]ER HELPER/PA only: No Clinical Impression: KAMINI (acute kidney injury), Acute confusion, Hallucination, visual Activity: as per physical therapy and increase activity as tolerated Patient Disposition: Xfer As Inpt ([facility]) Discharge Date/Time: 08/23/22 15:57
--- NOTE | 2022-08-23 11:12 | Cat Scan Report ---
CLINICAL INFORMATION: Altered mental status and confusion COMPARISON: None. TECHNIQUE: 2.5 mm helical slices were obtained in the skull base to vertex. Following reconstruction, axial reformatted images were reviewed at bone and parenchymal windows. The exam was performed using radiation dose optimization techniques including, but not limited to, automated exposure control, adjustment of the mA and/or kV according to patient size and use of iterative reconstruction technique. FINDINGS: The ventricles, sulci, fissures, and cisterns are symmetrically enlarged compatible with mild age-related atrophy. No extra-axial fluid collections are identified. Mild patchy chronic ischemic changes, in the deep cerebral white matter, are expected for age. 3-4 remote lacunar infarcts seen within the basal ganglia regions. There is no hemorrhage, mass effect, or edema. Bone windows show no osseous abnormality. IMPRESSION: Mild atrophy and chronic ischemic changes in the deep cerebral white matter-expected for age. No acute findings. A few remote lacunar infarcts in the basal ganglia. Interpreted and Authenticated by: Daniel Quiroz 08/23/22
[2022-08-23 11:23] LABS: Basophils # (Auto) 0.01 K/mcL (0.00-0.30); Basophils % (Auto) 0.1 % (0.0-2.0); Eosinophils # (Auto) 0 K/mcL (0.00-0.70); Eosinophils % (Auto) 0 % (0.0-7.0); Hematocrit 33.8 % (40.1-51.0); Hemoglobin 10.3 g/dL (13.7-17.5); Lymphocytes # (Auto) 0.55 K/mcL (1.50-4.80); Lymphocytes % (Auto) 5.6 % (15.5-49.0); Mean Cell Volume 81.3 fL (80.0-100.0); Mean Corpuscular HGB Conc 30.5 g/dL (31.0-36.0); Mean Platelet Volume 10.1 fL (8.8-12.5); Monocytes # (Auto) 0.51 K/mcL (0.10-0.90); Monocytes % (Auto) 5.2 % (1.0-12.0); Neutrophils % (Auto) 88.3 % (38.0-78.0); Platelet Count 252 K/mcL (140-440); RBC 4.16 M/mcL (4.63-6.08); WBC 9.9 K/mcL (4.5-11.0)
[2022-08-23] MEDS ORDERED: LACTATED RINGERS 1,000 ML IV ONE (11:39)
[2022-08-23 11:58] LABS: ALT/SGPT 21 U/L (<40); AST/SGOT 30 U/L (<40); Albumin 3.9 gm/dL (3.2-5.2); Alkaline Phosphatase 89 U/L (39-117); Bilirubin,Direct < 0.2 mg/dL (0-0.3); Bilirubin,Total 0.5 mg/dL (0.1-1.0); Globulin 2.6 gm/dL (2.2-3.7)
[2022-08-23 12:37] LABS: Appearance,Urine CLEAR (Clear); Bilirubin,Urine Negative (Negative); Color,Urine YELLOW; Culture Indicated,Urine No; Glucose,Urine (UA) Negative (Negative); Ketones,Urine Negative (Negative); Leukocyte Esterase,Urine Negative /uL (Negative); Nitrate,Urine Negative (Negative); Protein,Urine Negative (Negative); Specific Gravity,Urine 1.019 (1.000-1.035); Urine Blood Negative (Negative); Urobilinogen,Urine Negative
[2022-08-23 13:22] LABS: Alcohol, Blood < 10.0 mg/dL; Alcohol,Blood < 0.010 gm/dL (<0.010)
[2022-08-23 13:38] LABS: Amphetamine Screen,Urine None detected; Barbiturate Screen,Urine None detected; Benzodiazepines Screen,Urine None detected; Cannabinoid Screen,Urine None detected; Cocaine Screen,Urine None detected; Opiate Screen,Urine Suspect Positive; Oxycodone, Urine Screen None detected; Phencyclidine Screen,Urine None detected
[2022-08-23] MEDS ORDERED: NALOXONE HCL 0.4 MG/ML VIAL IV ONE (14:50)
--- NOTE | 2022-08-23 14:59 | Nephrology Consult Note ---
HPI Date of Consult Consult Date: 08/23/22 Requesting physician: Keith Herman Primary Care Provider: Amanda Hemphill Consult Narrative Patient Information: Note initiated : 08/23/22 at 2:55 pm Patient: Torrey Castro 87 y/o M admitted on for altered mental status. Chief Complaint: Altered mental status Chief complaint: Altered mental status Reason for consult: Acute kidney injury cc:: Torrey Castro is an 87-year-old male presented to ED for altered mental stat us. In ED, serum creatinine was elevated. He was not able to provide history. His daughter reported the onset as yesterday. The patient likely did not eat have oral intake since yesterday. She does not think he took NSAIDs. No obvious etiology was identified for either problem. Nephrology consultation was requested for acute kidney injury. Review of Systems ROS unobtainable: due to mental status PFSH PFSH All Active Problems (Updated 08/23/22 @ 14:58 by Jessie Panchal MD) Acute renal failure superimposed on stage 3a chronic kidney disease (Acute) Diverticulitis (Acute) Elevated troponin (Acute) Abdominal pain (Acute) Abdominal pain, acute (Acute) History of kidney stones (Acute) Degenerative joint disease of spine (Acute) Chronic, continuous use of opioids (Acute) Hypertension, essential (Acute) Acute abdominal pain in right flank (Acute) Diarrhea (Acute) Nausea and vomiting (Acute) Atherosclerosis (Acute) Medical History Abdominal pain Chronic, 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 Diverticulitis Diverticulitis History of kidney stones Hypertension, essential Hypokalemia Influenza Musculoskeletal chest pain Pneumonia Surgical History History of lumbosacral spine surgery Family History Father Cancer Mother Cancer Social History smoking status: Never smoker alcohol intake frequency: does not drink substance use type: does not use MEDS/ALLERGIES Home Medications and Allergies Home Medications Medication Instructions Recorded Confirmed Type amlodipine 10 mg tablet 10 mg PO QAM 03/20/21 03/21/21 History atorvastatin 10 mg tablet 10 mg PO QDAY 03/20/21 03/21/21 History clopidogrel 75 mg tablet 75 mg PO QAM 03/20/21 03/21/21 History gabapentin 300 mg capsule 300 mg PO TID 03/20/21 03/21/21 History lipase 3,000-protease 2 cap PO TID 03/20/21 03/21/21 History 9,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,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, delayed rel (Creon) tamsulosin 0.4 mg capsule 0.4 mg PO BID UTI symptoms 03/21/21 03/21/21 History triamterene 37.5 1 cap PO QAM 03/21/21 03/21/21 History mg-hydrochlorothiazide 25 mg capsule ondansetron 4 mg disintegrating 4 mg PO Q8H PRN nausea and 03/22/21 Rx tablet vomiting #30 tabs amoxicillin 875 mg-potassium 1 tab PO Q12H #4 tabs 03/23/21 Rx clavulanate 125 mg tablet (Augmentin) apixaban 5 mg tablet (Eliquis) 5 mg PO BID #60 tabs 03/23/21 Rx hydrocodone 7.5 mg-acetaminophen 1 tab PO Q4-6HP PRN Pain #10 tabs 03/24/21 Rx 325 mg tablet Allergies Allergy/AdvReac Type Severity Reaction Status Date / Time No Known Drug Allergies Allergy Verified 08/23/22 09:08 Physical Examination Vital Signs Vital signs: Temp Pulse Resp BP Pulse Ox O2 Del Method O2 Flow Rate 98.0 F 60 13 126/64 98 2 08/23/22 09:08 08/23/22 14:50 08/23/22 14:50 08/23/22 14:46 08/23/22 14:50 08/23/22 14:29 08/23/22 14:29 General Appearance General appearance: fatigue and anxious EENT EENT: mucous membranes dry Neck Neck: no JVD Respiratory Respiratory: clear Cardiovascular Cardiology: no edema, regular rate and regular rhythm Gastrointestinal Gastrointestinal: no tenderness Integumentary Integumentary: no rash Neurologic Neurologic: confused Results Lab Results Result Diagrams: 08/23/22 10:26 A/P Assessment and plan (1) Acute renal failure superimposed on stage 3a chronic kidney disease: Assessment and plan: Torrey Castro is an 87-year-old male presented to ED for altered mental status. In ED, serum creatinine was elevated. He was not able to provide his tory. No obvious etiology was identified for either problem. Nephrology consultation was requested for acute kidney injury. Acute kidney injury on chronic kidney disease stage 3a, present on arrival. He was not able to provide history. His daughter reported the onset of altered mental status as yesterday. The patient likely did not eat have oral intake since yesterday. She does not think he took NSAIDs. 1 L LR given in ED. No obvious etiology was identified. Workup: Urinalysis on 08/23/22: Yellow, Clear, pH 5.0, SG 1.019, protein negative, blood negative, leukocyte esterase negative. Previous workup: CT Abdomen and Pelvis with contrast on 05/22/22: Atrophic right kidney, unchanged . There is a 3 mm nonobstructing calculus. Left kidney is negative. No hydronephrosis or solid mass. There is a 6.2 cm left renal cyst. No hydroureter. No ureteral calculus. No bladder stone. No detectable bladder mass. Progress: Serum creatinine increased from a baseline of 1.0 to 3.3. Baseline serum creatinine: 1.0 to 1.5 (eGFR 41-68) in 2020. Urine output: Urine obtained in ED by straight cath. Volume not reported. Recommendations/Plan: No urgent acute hemodialysis need. Avoid NSAIDs, nephrotoxic medications and IV contrast. Monitor BMP and urine output. Status: Acute Time Spent With Patient Time: Total time spent is greater than 50% in coordination of care (as documented) at patient's floor/unit and/or counseling patient:
--- NOTE | 2022-08-23 15:02 | Internal Med History&Physical ---
HPI History of Present Illness Patient information: Note initiated : 08/23/22 at 2:55 pm Service Date, if different from initiated Date: [] Patient: Torrey Castro 87 y/o M admitted on for altered mental status. Chief Complaint: [] History of present illness: Mr. 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 In the emergency department, the patient was afebrile, vitals stable, CT head did not show any acute changes. Laboratory work revealed that the patient has an acute on chronic kidney disease injury. The cause for the patient's altered mental status was not elucidated in the ED. Hospital medicine was consulted for further evaluation and hospital admission. Upon evaluation, the patient is sleeping soundly and unable to provide any history due to altered mental status. History was obtained from his daughter at the bedside, she says that she was doing okay up until today. She speaks to him on a regular basis by phone. She says the patient takes morphine as needed for chronic back pain but is not sure how much he has been taking recently. Review of systems: Unable to obtain due to altered mental status. Physical exam Head: Atraumatic, normal inspection. Eyes: Small pupils bilaterally, no scleral icterus. Neck: full ROM Respiratory: no respiratory distress. Cardiovascular: normal rate and rhythm, S1, S2. GI/Abdominal: soft, nontender, no guarding. Extremities: full range of motion, nontender. Neurological: CN II-XII intact, intact motor, intact sensation. Psychiatric: Altered mental status. Skin: warm, normal color PFSH PFSH All Active Problems (Updated 08/23/22 @ 14:58 by Jessie Panchal MD) Acute renal failure superimposed on stage 3a chronic kidney disease (Acute) Diverticulitis (Acute) Elevated troponin (Acute) Abdominal pain (Acute) Abdominal pain, acute (Acute) History of kidney stones (Acute) Degenerative joint disease of spine (Acute) Chronic, continuous use of opioids (Acute) Hypertension, essential (Acute) Acute abdominal pain in right flank (Acute) Diarrhea (Acute) Nausea and vomiting (Acute) Atherosclerosis (Acute) Medical History Abdominal pain Chronic, 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 Diverticulitis Diverticulitis History of kidney stones Hypertension, essential Hypokalemia Influenza Musculoskeletal chest pain Pneumonia Surgical History History of lumbosacral spine surgery Family History Father Cancer Mother Cancer Social History smoking status: Never smoker alcohol intake frequency: does not drink substance use type: does not use MEDS/ALLERGIES Home Medications and Allergies Home Medications Medication Instructions Recorded Confirmed Type amlodipine 10 mg tablet 10 mg PO QAM 03/20/21 03/21/21 History atorvastatin 10 mg tablet 10 mg PO QDAY 03/20/21 03/21/21 History clopidogrel 75 mg tablet 75 mg PO QAM 03/20/21 03/21/21 History gabapentin 300 mg capsule 300 mg PO TID 03/20/21 03/21/21 History lipase 3,000-protease 2 cap PO TID 03/20/21 03/21/21 History 9,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,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, delayed rel (Creon) tamsulosin 0.4 mg capsule 0.4 mg PO BID UTI symptoms 03/21/21 03/21/21 History triamterene 37.5 1 cap PO QAM 03/21/21 03/21/21 History mg-hydrochlorothiazide 25 mg capsule ondansetron 4 mg disintegrating 4 mg PO Q8H PRN nausea and 03/22/21 Rx tablet vomiting #30 tabs amoxicillin 875 mg-potassium 1 tab PO Q12H #4 tabs 03/23/21 Rx clavulanate 125 mg tablet (Augmentin) apixaban 5 mg tablet (Eliquis) 5 mg PO BID #60 tabs 03/23/21 Rx hydrocodone 7.5 mg-acetaminophen 1 tab PO Q4-6HP PRN Pain #10 tabs 03/24/21 Rx 325 mg tablet Allergies Allergy/AdvReac Type Severity Reaction Status Date / Time No Known Drug Allergies Allergy Verified 08/23/22 09:08 EXAM Constitutional Vitals: Temp Pulse Resp BP Pulse Ox O2 Del Method O2 Flow Rate 98.0 F 60 13 126/64 98 2 08/23/22 09:08 08/23/22 14:50 08/23/22 14:50 08/23/22 14:46 08/23/22 14:50 08/23/22 14:29 08/23/22 14:29 DATA Data Completed and Pending Labs: Labs from last 24 hours 08/23/22 08/23/22 08/23/22 11:20 11:20 11:20 WBC RBC Hgb Hct POC Hct MCV MCH MCHC RDW Plt Count MPV Immature Gran % (Auto) Neut % (Auto) Lymph % (Auto) [place] % (Auto) Eos % (Auto) Baso % (Auto) Lymph # (Auto) [place] # (Auto) Eos # (Auto) Baso # (Auto) Immature Gran # Absolute Neutrophils POC Sodium POC Potassium POC Chloride POC Total CO2 POC BUN POC Creatinine POC Glucose POC WB Ioniz Calcium Total Bilirubin Direct Bilirubin AST ALT Alkaline Phosphatase Total Protein Albumin Globulin Urine Color Yellow Urine Appearance Clear Urine pH 5.0 Ur Specific [place] 1.019 Urine Protein Negative Urine Glucose (UA) Negative Urine Ketones Negative Urine Occult Blood Negative Urine Nitrate Negative Urine Bilirubin Negative Urine Urobilinogen Negative Ur Leukocyte Esterase Negative Ur Culture Indicated? No Urine Osmolality Pending Urine Opiates Screen Suspect positive A Ur Opiates Confirm Pending Ur Oxycodone Screen None detected U Oxycod/Oxymor Confirm TNP Urine Methadone Screen None detected Ur Methadone Confirm TNP Ur Barbiturates Screen None detected Ur Barbiturate Confirm TNP Ur Phencyclidine Scrn None detected Urine PCP Confirm TNP Ur Amphetamines Screen None detected U Amphetamines Confirm TNP U Benzodiazepines Scrn None detected Ur Benzodiazepine, Qnt TNP Urine Cocaine Screen None detected Urine Cocaine Confirm TNP U Cannabinoids Confirm TNP U Marijuana (THC) Screen None detected Ethyl Alcohol mg/dL Ethyl Alcohol g/dL 08/23/22 08/23/22 08/23/22 10:26 10:26 10:26 WBC 9.9 RBC 4.16 L Hgb 10.3 L Hct 33.8 L POC Hct MCV 81.3 MCH 24.8 L MCHC 30.5 L RDW 15.0 H Plt Count 252 MPV 10.1 Immature Gran % (Auto) 0.8 H Neut % (Auto) 88.3 H Lymph % (Auto) 5.6 L [place] % (Auto) 5.2 Eos % (Auto) 0 Baso % (Auto) 0.1 Lymph # (Auto) 0.55 L [place] # (Auto) 0.51 Eos # (Auto) 0 Baso # (Auto) 0.01 Immature Gran # 0.08 H Absolute Neutrophils 8.73 H POC Sodium POC Potassium POC Chloride POC Total CO2 POC BUN POC Creatinine POC Glucose POC WB Ioniz Calcium Total Bilirubin 0.5 Direct Bilirubin < 0.2 AST 30 ALT 21 Alkaline Phosphatase 89 Total Protein 6.5 Albumin 3.9 Globulin 2.6 Urine Color Urine Appearance Urine pH Ur Specific [place] Urine Protein Urine Glucose (UA) Urine Ketones Urine Occult Blood Urine Nitrate Urine Bilirubin Urine Urobilinogen Ur Leukocyte Esterase Ur Culture Indicated? Urine Osmolality Urine Opiates Screen Ur Opiates Confirm Ur Oxycodone Screen U Oxycod/Oxymor Confirm Urine Methadone Screen Ur Methadone Confirm Ur Barbiturates Screen Ur Barbiturate Confirm Ur Phencyclidine Scrn Urine PCP Confirm Ur Amphetamines Screen U Amphetamines Confirm U Benzodiazepines Scrn Ur Benzodiazepine, Qnt Urine Cocaine Screen Urine Cocaine Confirm U Cannabinoids Confirm U Marijuana (THC) Screen Ethyl Alcohol mg/dL < 10.0 Ethyl Alcohol g/dL < 0.010 08/23/22 09:25 WBC RBC Hgb Hct POC Hct 36.0 L MCV MCH MCHC RDW Plt Count MPV Immature Gran % (Auto) Neut % (Auto) Lymph % (Auto) [place] % (Auto) Eos % (Auto) Baso % (Auto) Lymph # (Auto) [place] # (Auto) Eos # (Auto) Baso # (Auto) Immature Gran # Absolute Neutrophils POC Sodium 135 POC Potassium 4.8 POC Chloride 96 POC Total CO2 26.0 POC BUN 34 H POC Creatinine 3.3 H POC Glucose 162 H POC WB Ioniz Calcium 1.17 Total Bilirubin Direct Bilirubin AST ALT Alkaline Phosphatase Total Protein Albumin Globulin Urine Color Urine Appearance Urine pH Ur Specific [place] Urine Protein Urine Glucose (UA) Urine Ketones Urine Occult Blood Urine Nitrate Urine Bilirubin Urine Urobilinogen Ur Leukocyte Esterase Ur Culture Indicated? Urine Osmolality Urine Opiates Screen Ur Opiates Confirm Ur Oxycodone Screen U Oxycod/Oxymor Confirm Urine Methadone Screen Ur Methadone Confirm Ur Barbiturates Screen Ur Barbiturate Confirm Ur Phencyclidine Scrn Urine PCP Confirm Ur Amphetamines Screen U Amphetamines Confirm U Benzodiazepines Scrn Ur Benzodiazepine, Qnt Urine Cocaine Screen Urine Cocaine Confirm U Cannabinoids Confirm U Marijuana (THC) Screen Ethyl Alcohol mg/dL Ethyl Alcohol g/dL A/P Narrative A/P Narrative: Assessment: 87-year-old male with a history of hypertension, hyperlipidemia, chronic kidney disease stage III, atrial fibrillation, chronic myelogenous leukemia, history of TIA, chronic back pain on opioids admitted for altered mental status and acute on chronic kidney disease injury. CT head without contrast did not show any acute changes. #Altered mental status, uncertain etiology but possibly opioid related occurring in the setting of renal failure #Acute on chronic kidney disease stage III injury #Chronic pain on opioids #Chronic myelogenous leukemia #Atrial fibrillation #Essential hypertension #Hyperlipidemia #History of TIA Plan -Narcan 0.4 mg IV, assess response. -IV fluid, follow renal function and urine output. -Bilateral renal ultrasound. -Avoid nephrotoxic medications. -ED consulted nephrology for KAMINI. -Home medication reconciliation, continue important meds. -N.p.o. until mental status improves. -CODE STATUS: DNR/DNI Time Spent With Patient Time: Total time spent is greater than 50% in coordination of care (as documented) at patient's floor/unit and/or counseling patient:
[2022-08-23] MEDS ORDERED: NALOXONE HCL 0.4 MG/ML VIAL IV SCH (16:30)
[2022-08-23] MEDS ORDERED: ONDANSETRON 4 MG/2 ML VIAL IV PRN (16:33)
[2022-08-23] MEDS ORDERED: ACETAMINOPHEN 325 MG TABLET PO PRN (16:33)
[2022-08-23] MEDS ORDERED: NALOXONE HCL 0.4 MG/ML VIAL IV PRN (16:33)
[2022-08-23] MEDS: LACTATED RINGERS 1,000 ML IV SCH (17:45)
--- NOTE | 2022-08-23 18:39 | Ultrasound Report ---
CLINICAL INFORMATION: Acute renal failure COMPARISON: Abdomen and pelvic CT 05/22/2022 FINDINGS: Right kidney is atrophic spanning 6 x 3 cm. Left kidney is normal in size: 10 x 6 cm. Right kidney is moderately echogenic. There is a 4 mm stone in a inferior calyx right kidney. A 5 cm simple cyst projects the anterior left kidney. No solid lesions or hydronephrosis. Urinary bladder is unremarkable. Prostate normal volume 9 cc. IMPRESSION: Moderate atrophy right kidney with elevated echotexture suggesting parenchymal renal disease. There is a 4 mm nonobstructing stone in a inferior calyx right kidney. 5 cm simple cyst left kidney Urinary bladder and prostate normal Interpreted and Authenticated by: Daniel Quiroz 08/23/22
[2022-08-23] MEDS: 0.9 % SODIUM CHLORIDE 10 ML SYRINGE IV SCH (20:18)
[2022-08-23] MEDS: DOCUSATE SODIUM 100 MG CAPSULE PO SCH (20:20)
[2022-08-23] MEDS ORDERED: SENNOSIDES 1 TABLET PO SCH (21:00)
[2022-08-24] MEDS: LACTATED RINGERS 1,000 ML IV SCH (03:08)
[2022-08-24] MEDS: 0.9 % SODIUM CHLORIDE 10 ML SYRINGE IV SCH ×2 (06:21→14:15)
[2022-08-24 07:18] LABS: ALT/SGPT 19 U/L (<40); AST/SGOT 33 U/L (<40); Albumin 3.5 gm/dL (3.2-5.2); Albumin/Globulin Ratio 2.1 (1.0-2.3); Alkaline Phosphatase 72 U/L (39-117); Bilirubin,Direct < 0.2 mg/dL (0-0.3); Bilirubin,Total 0.5 mg/dL (0.1-1.0); Blood Urea Nitrogen 23 mg/dL (8-23); Carbon Dioxide 28 mmol/L (22-30); Chloride 101 mmol/L (96-108); Globulin 1.7 gm/dL (2.2-3.7); Glomerular Filtration Rate 41; Glucose 105 mg/dL (70-105); Lactate Dehydrogenase 183 U/L (135-225); Phosphorous 2.2 mg/dL (2.5-4.5); Triglycerides 125 mg/dL (<150); Uric Acid 9.6 mg/dL (2.5-8.0)
--- NOTE | 2022-08-24 07:32 | Nephrology Progress Note ---
SUBJECTIVE Subjective Patient information: Note initiated : 08/24/22 at 7:30 am Patient: Torrey Castro 87 y/o M admitted on 08/23/22 for altered mental status. Chief Complaint: Altered mental status Pertinent ROS: Antonio catheter removed Mental status improved Constitutional Vitals: Vital Signs Temp Pulse Resp BP Pulse Ox O2 Del Method O2 Flow Rate 98.6 F 76 16 149/69 96 2 08/24/22 06:50 08/24/22 06:50 08/24/22 06:50 08/24/22 06:50 08/24/22 06:50 08/24/22 06:50 08/24/22 06:50 Period Temp Pulse Resp BP Sys/Crespo Pulse Ox O2 Del Method O2 Flow Rate Last 24 Hr 97.9 F-98.6 F 47-112 11-32 96-183/53-126 74-100 Nasal Cannula- Room Air 2-4 Intake and Output 08/23/22 08/24/22 08/24/22 21:59 05:59 13:59 Intake Total 1104 892 Output Total 650 Balance 1104 242 Weight 158 lb 2 oz Intake & Output: Intake & Output 08/23/22 08/24/22 08/24/22 21:59 05:59 13:59 Intake Total 1104 892 Output Total 650 Balance 1104 242 Weight 158 lb 2 oz Intake: IV 1104 892 Lactated Ringers 1,000 ml @ 125 1104 892 mls/hr IV .Q8H [facility] Rx#: [id number] Output: Void Amount 650 Other: Urine Appearance Clear Urine Color Bright Yellow Urine Odor Normal Stool Size Moderate Stool Color Brown Stool Consistency Soft # Bowel Movements 1 General appearance: cooperative and no acute distress Head Head exam: Present normal inspection Eye Eye exam: Present normal appearance ENT ENT exam: Present mucous membranes moist Respiratory Respiratory exam: Absent respiratory distress Cardiovascular Cardiovascular exam: Present normal rate and rhythm GI/Abdominal GI/Abdominal exam: Present soft; Absent tenderness Extremities Exam Extremities exam: Absent joint swelling or pedal edema Neurological Exam Neurological exam: Present alert and oriented X3 Psychiatric Psychiatric exam: Present normal affect and normal mood Skin Skin exam: Present warm; Absent rash A/P Assessment and plan (1) Acute renal failure superimposed on stage 3a chronic kidney disease: Assessment and plan: Torrey Castro is an 87-year-old male presented to ED for altered mental s tatus. In ED, serum creatinine was elevated. He was not able to provide history. No obvious etiology was identified for either problem. Nephrology consultation was requested for acute kidney injury. This morning, his mental staus improved. He thinks he might have taken more pain medications unintentionally. Acute kidney injury on chronic kidney disease stage 3a, present on arrival, resolving. Dehydration due to decreased oral intake and medications (diuretics) are considered as a potential etiology. No other obvious etiology was identified. Workup: Urinalysis on 08/23/22: Yellow, Clear, pH 5.0, SG 1.019, protein negative, blood negative, leukocyte esterase negative. Renal US on 08/23/22: Moderate atrophy right kidney with elevated echotexture suggesting parenchymal renal disease. There is a 4 mm nonobstructing stone in a inferior calyx right kidney. 5 cm simple cyst left kidney. Urinary bladder and prostate normal. Previous workup: CT Abdomen and Pelvis with contrast on 05/22/22: Atrophic right kidney, unchanged. There is a 3 mm nonobstructing calculus. Left kidney is negative. No hydronephrosis or solid mass. There is a 6.2 cm left renal cyst. No hydroureter. No ureteral calculus. No bladder stone. No detectable bladder mass. Progress: Serum creatinine decreased from 3.3 to 1.5 in the past 24 hours. Baseline serum creatinine: 1.0 to 1.5 (eGFR 41-68) in 2020. Urine output: 650+ ml reported in the past 24 hours. Recommendations/Plan: Anticipate no acute hemodialysis need. Nephrology will sign off. Status: Acute Time Spent With Patient Time: Total time spent is greater than 50% in coordination of care (as documented) at patient's floor/unit and/or counseling patient:
[2022-08-24] MEDS ORDERED: amLODIPine 10 MG TABLET PO SCH (09:00)
[2022-08-24] MEDS: DOCUSATE SODIUM 100 MG CAPSULE PO SCH (11:13)
[2022-08-24] MEDS ORDERED: HYDROCODONE/APAP 7.5/325MG TABLET PO PRN (11:23)
--- NOTE | 2022-08-24 14:00 | Internal Med Progress Note ---
SUBJECTIVE Subjective Patient information: Note initiated : 08/24/22 at 1:58 pm Service Date, if different from initiated Date: [] Patient: Torrey Castro 87 y/o M admitted on 08/23/22 for altered mental status. Chief Complaint: [] Interval history: Mr. Castro is a 87 year old male with a history of hyperlipidemia, hypertension, atrial fibrillation, chronic kidney disease stage III, chronic myelogenous leukemia, chronic pain on opioids who lives in assisted living at [place] and was found to be confused today therefore brought into the emergency department. In the emergency department, the patient was afebrile, vitals stable, CT head did not show any acute changes. Laboratory work revealed that the patient has an acute on chronic kidney disease injury. The cause for the patient's altered mental status was not elucidated in the ED. Hospital medicine was consulted for further evaluation and hospital admission. Upon evaluation, the patient is sleeping soundly and unable to provide any history due to altered mental status. History was obtained from his daughter at the bedside, she says that she was doing okay up until today. She speaks to him on a regular basis by phone. She says the patient takes morphine as needed for chronic back pain but is not sure how much he has been taking recently. 08/24 Patient's mental status has improved, likely return to baseline. The patient did respond to Narcan he received soon after admission, woke up and took out one of his IVs. Suspect the patient's encephalopathy is secondary to opioids in the setting of an acute on chronic kidney disease injury. Renal function improved with IV fluid, discontinued IV fluid. Bilateral renal ultrasound negative for hydronephrosis. Patient is complaining of back pain, resumed MS Contin at 50% of prior dose. Physical therapy consult. Physical exam Head: Atraumatic, normal inspection. Eyes: PERRLA, no scleral icterus. Neck: full ROM Respiratory: no respiratory distress. Cardiovascular: normal rate and rhythm, S1, S2. GI/Abdominal: soft, nontender, no guarding. Extremities: full range of motion, nontender. Neurological: CN II-XII intact, intact motor, intact sensation. Psychiatric: Normal mood. Skin: warm, normal color Constitutional Vitals: Vital Signs Temp Pulse Resp BP Pulse Ox O2 Del Method O2 Flow Rate 97.5 F 74 16 147/57 96 2 08/24/22 12:00 08/24/22 12:00 08/24/22 12:00 08/24/22 12:00 08/24/22 12:00 08/24/22 12:00 08/24/22 06:50 Period Temp Pulse Resp BP Sys/Crespo Pulse Ox O2 Del Method O2 Flow Rate Last 24 Hr 97.5 F-98.6 F 59-107 11-23 96-158/56-126 90-100 Nasal Cannula- Room Air 2-2 Intake and Output 08/23/22 08/24/22 08/24/22 21:59 05:59 13:59 Intake Total 3721 814 8270 Output Total 650 200 Balance 1104 242 800 Weight 71.724 kg Intake & Output: Intake & Output 08/23/22 08/24/22 08/24/22 21:59 05:59 13:59 Intake Total 9584 619 8720 Output Total 650 200 Balance 1104 242 800 Weight 71.724 kg Intake: IV 7318 901 3841 Lactated Ringers 1,000 ml @ 125 6931 585 5023 mls/hr IV .Q8H [facility] Rx#: [id number] Output: Void Amount 650 200 Other: Meal Lunch Percent of Meal Consumed 50% Feeding Ability Independent Urine Appearance Clear Clear Urine Color Bright Yellow Yellow Urine Odor Normal Normal Stool Size Moderate Moderate Stool Color Brown Brown Stool Consistency Soft Liquid # Voids 1 # Bowel Movements 1 1 # of times incontinent of 1 Bowels OBJ DATA Labs CBC & Chem 7: 08/23/22 10:26 08/24/22 05:27 Labs: Abnormal Lab Results 08/24/22 08/23/22 08/23/22 05:27 11:20 10:26 RBC 4.16 L Hgb 10.3 L Hct 33.8 L POC Hct MCH 24.8 L MCHC 30.5 L RDW 15.0 H Immature Gran % (Auto) 0.8 H Neut % (Auto) 88.3 H Lymph % (Auto) 5.6 L Lymph # (Auto) 0.55 L Immature Gran # 0.08 H Absolute Neutrophils 8.73 H POC BUN Creatinine 1.5 H POC Creatinine POC Glucose Uric Acid 9.6 H Calcium 8.0 L Phosphorus 2.2 L Total Protein 5.2 L Globulin 1.7 L Urine Opiates Screen Suspect positive A 08/23/22 09:25 RBC Hgb Hct POC Hct 36.0 L MCH MCHC RDW Immature Gran % (Auto) Neut % (Auto) Lymph % (Auto) Lymph # (Auto) Immature Gran # Absolute Neutrophils POC BUN 34 H Creatinine POC Creatinine 3.3 H POC Glucose 162 H Uric Acid Calcium Phosphorus Total Protein Globulin Urine Opiates Screen Meds: Medications Acetaminophen (Acetaminophen 325 Mg Tablet) 650 mg PO Q6HP PRN; Protocol PRN Reason: Per Pain Protocol/Fever > 101 Hydrocodone Bitart/Acetaminophen (Hydrocodone/Apap 7.5/325mg Tablet) 1 tab PO Q4-6HP PRN PRN Reason: Pain Last Admin: 08/24/22 11:43 Dose: 1 tab Amlodipine Besylate (Amlodipine 10 Mg Tablet) 10 mg PO QAM [facility] Last Admin: 08/24/22 11:42 Dose: 10 mg Apixaban (Apixaban 5 Mg Tablet) 5 mg PO BID [facility] Atorvastatin Calcium (Atorvastatin 10 Mg Tablet) 10 mg PO QDAY [facility] Docusate Sodium (Docusate Sodium 100 Mg Capsule) 100 mg PO BID [facility] Last Admin: 08/24/22 11:13 Dose: Not Given Gabapentin (Gabapentin 300 Mg Capsule) 300 mg PO TID [facility] Morphine Sulfate (Morphine 15 Mg Tab.Sr.12h) 15 mg PO BID [facility]; Protocol Naloxone HCl (Naloxone Hcl 0.4 Mg/Ml Vial) 0.4 mg IV Q10M PRN PRN Reason: Opiate Reversal Ondansetron HCl (Ondansetron 4 Mg/2 Ml Vial) 4 mg IV Q6HP PRN PRN Reason: Nausea And Vomiting Senna (Sennosides 1 Tablet) 2 tab PO [facility] Last Admin: 08/23/22 20:20 Dose: Not Given Sodium Chloride (0.9 % Sodium Chloride 10 Ml Syringe) 10 ml IV Q8 [facility] Last Admin: 08/24/22 06:21 Dose: Not Given Tamsulosin HCl (Tamsulosin 0.4 Mg Capsule) 0.4 mg PO [facility] A/P Narrative A/P Narrative: Assessment: 87-year-old male with a history of hypertension, hyperlipidemia, chronic kidney disease stage III, atrial fibrillation, chronic myelogenous leukemia, history of TIA, chronic back pain on opioids admitted for altered mental status and acute on chronic kidney disease injury. CT head without contrast did not show any acute changes. The patient's mental status improved s ignificantly after receiving Narcan IV. Suspect the patient's mental status changes were secondary to opioids he receives for chronic back pain occurring in the setting of reduced renal function from an acute on chronic kidney disease injury. #Resolved encephalopathy likely secondary to opioids #Resolved acute on chronic kidney disease stage III injury #Chronic back pain pain on chronic opioid therapy #Chronic myelogenous leukemia #Atrial fibrillation #Essential hypertension #Hyperlipidemia #History of TIA Plan -Resume MS Contin at 15 mg twice daily, 50% reduced dose, and monitor mental st atus. -Resume home [place] as needed. -Narcan IV as needed for signs of opioid overdose. -Discontinue IV fluid. -Avoid nephrotoxic medications. -Continue home Norvasc, Eliquis, Lipitor, Flomax. -Holding home triamterene hydrochlorothiazide, Lasix for recent KAMINI. -Regular diet. -CODE STATUS: DNR/DNI -Disposition: Probably back to assisted living on reduced dose of opioids. The combination of triamterene, hydrochlorothiazide and Lasix will predispose the patient to KAMINI therefore will likely adjust these medications for discharge. Time Spent With Patient Time: Total time spent is greater than 50% in coordination of care (as documented) at patient's floor/unit and/or counseling patient: QUALITY VTE Deep Vein Thrombosis/Pulmonary Embolism Present on Admission: No
--- NOTE | 2022-08-24 14:20 | Discharge Summary ---
Discharge Provider Provider IMPORTANT FOLLOW-UP INFORMATION FOR PCP: Patient information: Note initiated : 08/24/22 at 2:19 pm Service Date, if different from initiated Date: [] Patient: Torrey Castro 87 y/o M admitted on 08/23/22 for altered mental status. Chief Complaint: [] Date of admission: 08/23/22 15:57 Discharge date: 08/24/22 Primary care physician: Amanda Hemphill Consults: 08/23/22 13:59 Consult to Physician [CONS] Stat Comment: Consulting Provider: Dino Faye Reason For Exam: Physician to Consult Consult to Physician [CONS] Stat Comment: Consulting Provider: Jessie Panchal Reason For Exam: Physician to Consult COURSE Hospital Course Hospital course: Mr. Castro is a 87 year old male with a history of hyperlipidemia, hypertension, atrial fibrillation, chronic kidney disease stage III, chronic myelogenous leukemia, chronic pain on opioids who lives in assisted living at [facility] and was found to be confused today therefore brought into the emergency department. In the emergency department, the patient was afebrile, vitals stable, CT head did not show any acute changes. Laboratory work revealed that the patient has an acute on chronic kidney disease injury. The cause for the patient's altered mental status was not elucidated in the ED. Hospital medicine was consulted for further evaluation and hospital admission. Upon evaluation, the patient is sleeping soundly and unable to provide any history due to altered mental status. History was obtained from his daughter at the bedside, she says that she was doing okay up until today. She speaks to him on a regular basis by phone. She says the patient takes morphine as needed for chronic back pain but is not sure how much he has been taking recently. 08/24 Patient's mental status has improved, likely return to baseline. The patient did respond to Narcan he received soon after admission, woke up and took out one of his IVs. Suspect the patient's encephalopathy is secondary to opioids in the setting of an acute on chronic kidney disease injury. Renal function improved with IV fluid, discontinued IV fluid. Bilateral renal ultrasound negative for hydronephrosis. Patient is complaining of back pain, resumed MS Contin at 50% of prior dose. Physical therapy consult. 08/24 Patient is able to discharge back to assisted living today with home health. Patient's medications were reviewed at discharge, did not see an indication for amoxicillin therefore discontinued, discontinued Plavix as the patient is taking Eliquis for anticoagulation and dual therapy significantly increases the risk for bleeding, discontinue triamterene hydrochlorothiazide due to recent KAMINI and propensity to cause prerenal KAMINI in the setting of taking Lasix as well. Doubt the patient is also taking Xarelto in addition to Eliquis therefore discontinued Xarelto. Reduced dose of MS Contin to 15 mg twice daily, continued hydrocodone acetaminophen as before. Patient will follow up with his primary care provider for further management, recommend following renal function, assessing blood pressure control given the recent changes to antihypertensive regiment. Physical exam Head: Atraumatic, normal inspection. Eyes: PERRLA, no scleral icterus. Neck: full ROM Respiratory: no respiratory distress. Cardiovascular: normal rate and rhythm, S1, S2. GI/Abdominal: soft, nontender, no guarding. Extremities: full range of motion, nontender. Neurological: CN II-XII intact, intact motor, intact sensation. Psychiatric: Normal mood. Skin: warm, normal color Discharge diagnosis: Encephalopathy secondary to opioids Secondary discharge diagnosis: Acute on chronic kidney disease injury Time Spent with Patient Time attestation: Total time spent providing and/or coordinating discharge services: Time spent: Greater than 30 minutes EXAM Constitutional Vitals: Temp Pulse Resp BP Pulse Ox O2 Del Method O2 Flow Rate 97.5 F 74 16 147/57 96 2 08/24/22 12:00 08/24/22 12:00 08/24/22 12:00 08/24/22 12:00 08/24/22 12:00 08/24/22 12:00 08/24/22 06:50 Discharge Data Data Completed and Pending Labs on day of discharge: Labs from last 24 hours 08/24/22 08/23/22 08/23/22 05:27 11:20 11:20 Sodium 137 Potassium 4.0 Chloride 101 Carbon Dioxide 28 Anion Gap 8.0 BUN 23 Creatinine 1.5 H GFR Calculation 41 Glucose 105 Uric Acid 9.6 H Calcium 8.0 L Phosphorus 2.2 L Magnesium 2.0 Total Bilirubin 0.5 Direct Bilirubin < 0.2 GGT 19 AST 33 ALT 19 Alkaline Phosphatase 72 Lactate Dehydrogenase 183 Total Protein 5.2 L Albumin 3.5 Globulin 1.7 L Albumin/Globulin Ratio 2.1 Triglycerides 125 Urine Osmolality 380 U Oxycod/Oxymor Confirm TNP Ur Methadone Confirm TNP Ur Barbiturate Confirm TNP Urine PCP Confirm TNP U Amphetamines Confirm TNP Ur Benzodiazepine, Qnt TNP Urine Cocaine Confirm TNP U Cannabinoids Confirm TNP Discharge Plan Patient/Caregiver Discharge Instructions Activity: as per physical therapy and increase activity as tolerated Diet: Regular Diet Prescriptions: Continued amlodipine 10 mg tablet 10 mg PO QAM atorvastatin 10 mg tablet 10 mg PO QDAY gabapentin 300 mg capsule 300 mg PO TID Creon 3,000-9,500- 15,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,delayed release(DR/EC) 2 cap PO TID tamsulosin 0.4 mg capsule 0.4 mg PO BID ondansetron 4 mg tablet,disintegrating 4 mg PO Q8H PRN (Reason: nausea and vomiting) Qty: 30 0RF Eliquis 5 mg tablet 5 mg PO BID Qty: 60 0RF Rx Instructions: Take 10 mg twice daily for 4 days then 5 mg twice daily thereafter hydrocodone-acetaminophen 7.5-325 mg tablet 1 tab PO Q4-6HP PRN (Reason: Pain) Qty: 10 0RF furosemide 40 mg tablet 1 tab PO QDAY docusate sodium [Colace] 100 mg Capsule PO imatinib 100 mg tablet PO Vitamin D3 2,000 calcium carbonate Changed morphine 30 mg tablet extended release 15 mg PO BIDP PRN (Reason: Pain) Qty: 7 0RF Discontinued clopidogrel 75 mg tablet 75 mg PO QAM triamterene-hydrochlorothiazid 37.5-25 mg capsule 1 cap PO QAM amoxicillin 500 mg capsule 2 cap PO BID Xarelto 15 mg Follow Up Plan Follow up with: Amanda Hemphill MD [Primary Care Provider] - Patient Disposition: Home Health Service Overall status at discharge: patient is back to baseline Discharge Orders: Discharge Order (Routine); Ordered 08/24/22 Ordered By: Dino GERMAN VTE Deep Vein Thrombosis/Pulmonary Embolism Present on Admission: No
--- NOTE | 2022-08-24 14:45 | EKG ---
[facility] Test Date: 2022-08-23 Pat Name: Torrey Castro Department: ED Room: Gender: Male Ultrasound Tech: AW : [id number] Requested By: Keith Herman Order Number: [id number] Reading MD: Torrey Bautista Measurements Intervals Boyd Rate: 60 P: 3 MO: 255 QRS: -49 QRSD: 88 T: 0 QT: 409 QTc: 409 Interpretive Statements Sinus rhythm Prolonged MO interval Left anterior fascicular block Abnormal R-wave progression, late transition Borderline T wave abnormalities Electronically Signed On 08-24-2022 14:44:50 PDT by Torrey Bautista /store/M0/[id number]
[2022-08-24] MEDS ORDERED: GABAPENTIN 300 MG CAPSULE PO SCH (15:00)
[2022-08-24] MEDS ORDERED: APIXABAN 5 MG TABLET PO SCH (21:00)
[2022-08-24] MEDS ORDERED: TAMSULOSIN 0.4 MG CAPSULE PO SCH (21:00)
[2022-08-24] MEDS ORDERED: morphine 15 MG TAB.SR.12H PO SCH (21:00)
[2022-08-25] MEDS ORDERED: ATORVASTATIN 10 MG TABLET PO SCH (09:00)
[2022-08-25] MEDS ORDERED: FUROSEMIDE 40 MG TABLET PO SCH (09:00)
[2022-08-31 04:37] LABS: Opiate Confirmation Positive
== END 2022-08-24 15:36 | disposition home health service (06) | DRG 92 ==
LOC: ED 09:07 → MEDSUR 15:57
PROVIDERS: ADMIT Internal Medicine; ATTEND Internal Medicine

== ENCOUNTER 2022-09-03 10:34 | Observation (INO) ==
--- NOTE | 2022-09-03 11:11 | Emergency Department Note ---
Altered Mental Status HPI General Chief Complaint: Altered Mental Status Stated Complaint: Altered LOC Time Seen by Provider: 09/03/22 10:35 Source: EMS Mode of arrival: EMS History of Present Illness HPI Narrative: Narrative: 87-year-old male with past medical history of multiple problems including renal failure, joint degenerative joint disease, chronic use of opioids, hypertension and as below was found to be unresponsive and with difficulty breathing by [facility] personnel. EMT gave her Narcan with improvement in patient's breathing. Patient is a DNR status with only comfort measures. No IV fluids or no blood products. Patient was brought to ER for further evaluation Related Data Home Medications Medication Instructions Recorded Confirmed amlodipine 10 mg tablet 10 mg PO QAM 03/20/21 08/24/22 atorvastatin 10 mg tablet 10 mg PO QDAY 03/20/21 08/24/22 gabapentin 300 mg capsule 300 mg PO TID 03/20/21 08/24/22 lipase 3,000-protease 2 cap PO TID 03/20/21 08/24/22 9,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,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, delayed rel (Creon) tamsulosin 0.4 mg capsule 0.4 mg PO BID UTI symptoms 03/21/21 08/24/22 Vitamin D3 2,000 08/24/22 calcium carbonate 08/24/22 docusate sodium 100 mg capsule mg PO 08/24/22 (Colace) furosemide 40 mg tablet 1 tab PO QDAY 08/24/22 08/24/22 imatinib 100 mg tablet tab PO 08/24/22 Previous Rx's Medication Instructions Recorded ondansetron 4 mg disintegrating 4 mg PO Q8H PRN nausea and 03/22/21 tablet vomiting #30 tabs apixaban 5 mg tablet (Eliquis) 5 mg PO BID #60 tabs 03/23/21 hydrocodone 7.5 mg-acetaminophen 1 tab PO Q4-6HP PRN Pain #10 tabs 03/24/21 325 mg tablet morphine 30 mg tablet,extended 15 mg PO BIDP PRN Pain #7 tabs 08/24/22 release Allergies Allergy/AdvReac Type Severity Reaction Status Date / Time methocarbamol Allergy Severe Anaphylaxis Verified 08/24/22 08:47 acetaminophen AdvReac Unknown Verified 08/24/22 08:47 [From [facility]] Enalapril AdvReac Unknown Verified 08/24/22 08:47 propoxyphene AdvReac Unknown Verified 08/24/22 08:47 [facility] Review of Systems ROS ROS Narrative: Narrative: Limitations: ROS unobtainable due to patients medical condition [facility] Narrative Patient History Narrative: Narrative: Medical/Surgical/Family History All Active Problems (Updated 09/03/22 @ 15:21 by Hair Toussaint MD) KAMINI (acute kidney injury) (Acute) Acute confusion (Acute) Hallucination, visual (Acute) Breath shortness (Acute) Wheezes (Acute) Acute renal failure superimposed on stage 3a chronic kidney disease (Acute) Diverticulitis (Acute) Elevated troponin (Acute) Abdominal pain (Acute) Abdominal pain, acute (Acute) History of kidney stones (Acute) Degenerative joint disease of spine (Acute) Chronic, continuous use of opioids (Acute) Hypertension, essential (Acute) Acute abdominal pain in right flank (Acute) Diarrhea (Acute) Nausea and vomiting (Acute) Atherosclerosis (Acute) Medical History Abdominal pain Chronic, 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 Diverticulitis Diverticulitis History of kidney stones Hypertension, essential Hypokalemia Influenza Musculoskeletal chest pain Pneumonia Surgical History History of lumbosacral spine surgery Family History Father Cancer Mother Cancer Social History Smoking Status: Former smoker Alcohol Intake Frequency: does not drink Substance Use: does not use Exam Narrative Narrative: Narrative: General General appearance: Present other (non responsive to verbally.) Respiratory Respiratory: Present wheezes and stridor Cardiovascular Cardiovascular: Present regular rate, normal rhythm and normal heart sounds Adbominal Abdominal: Present soft and normal bowel sounds; Absent tenderness or organomegaly Extremities Extremities: Absent pedal edema, cyanosis or clubbing Course Course Course Narrative: Since patient's status is DNR with only comfort measures and no IV fluids or blood products. Patient's critical condition was discussed with the family and the family decided to respect the will of their father and proceed with comfort measures including giving him morphine IV for comfort. His work-up was called to provide patient with hospice care. However she was not able to to make a hospice care arrangement until Monday. As per her recommendation, we will admit patient to the hospital for comfort care discussed with hospitalist Dr. Pink Vital Signs Vital signs: Vital Signs Temperature 97.5 F 09/03/22 10:34 Pulse Rate 108 H 09/03/22 10:34 Respiratory Rate 32 H 09/03/22 10:34 Blood Pressure 147/109 09/03/22 10:34 Pulse Oximetry (%) 95 09/03/22 10:34 Oxygen Delivery Method 09/03/22 10:34 Oxygen Flow Rate (L/min) 15 09/03/22 10:34 Temperature 97.5 F 09/03/22 10:34 Pulse Rate 85 09/03/22 15:05 Respiratory Rate 19 09/03/22 15:05 Blood Pressure 133/60 09/03/22 15:01 Pulse Oximetry (%) 100 09/03/22 15:05 Oxygen Delivery Method 09/03/22 10:34 Oxygen Flow Rate (L/min) 15 09/03/22 10:34 MDM MDM Narrative Medical decision making narrative: Narrative: Discharge Plan Patient/Caregiver Discharge Instructions Pt seen by [employer]ER/PA only: No Clinical Impression: Breath shortness, Wheezes Patient Disposition: Xfer As Inpt ([facility]) Condition: Undetermined Follow up with: Amanda Hemphill MD [Primary Care Provider] - Prescriptions: No Action amlodipine 10 mg tablet 10 mg PO QAM atorvastatin 10 mg tablet 10 mg PO QDAY gabapentin 300 mg capsule 300 mg PO TID Creon 3,000-9,500- 15,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,delayed release(DR/EC) 2 cap PO TID tamsulosin 0.4 mg capsule 0.4 mg PO BID ondansetron 4 mg tablet,disintegrating 4 mg PO Q8H PRN (Reason: nausea and vomiting) Qty: 30 0RF Eliquis 5 mg tablet 5 mg PO BID Qty: 60 0RF Rx Instructions: Take 10 mg twice daily for 4 days then 5 mg twice daily thereafter hydrocodone-acetaminophen 7.5-325 mg tablet 1 tab PO Q4-6HP PRN (Reason: Pain) Qty: 10 0RF furosemide 40 mg tablet 1 tab PO QDAY docusate sodium [Colace] 100 mg Capsule PO imatinib 100 mg tablet PO Vitamin D3 2,000 calcium carbonate morphine 30 mg tablet extended release 15 mg PO BIDP PRN (Reason: Pain) Qty: 7 0RF
[2022-09-03] MEDS ORDERED: morphine 2 MG/ML VIAL IV ONE (12:19)
[2022-09-03] MEDS ORDERED: morphine 4 MG/ML VIAL IM PRN (12:43)
--- NOTE | 2022-09-03 16:07 | Internal Med History&Physical ---
HPI History of Present Illness Patient information: Note initiated : 09/03/22 at 4:04 pm Service Date, if different from initiated Date: [] Patient: Torrey Castro a 87 y/o M admitted on for Altered LOC. Chief Complaint: [general weakness] Chief complaint: general weakness History of present illness: Mr. Castro is a 87 year old M multiple past medical history presenting with need for hospice palliative care. Is a assisted-living facility resident but family just decided to switch to hospice palliative care. However, the facility he is coming from does not have the ability to deliver the level of care the family wants. Since his the weekend, no other arrangement could be arranged. Family also unable to take care of the patient's at home and perform home hospice. As a result, patient was brought to our ER for further management. Admission request called for palliative care while awaiting hospice placement. Constitutional Constitutional: Absent chills, excessive sweating, fatigue, fever(s) or weakness EENT Eyes: Absent blurry vision, change in vision, loss of vision or other visual disturbances Ears: Absent decreased hearing or tinnitus Nose, mouth and throat: Absent abnormal hearing, dry mouth, headache(s), nasal congestion or sore throat Cardiovascular Cardiovascular: Absent chest pain, chest pain at rest, edema, irregular heart rhythm or palpatations Respiratory Respiratory: Absent cough, dyspnea or wheezing Gastrointestinal Gastrointestinal: Absent abdominal pain, constipation, diarrhea, nausea or vomiting Musculoskeletal Musculoskeletal: Absent back pain, deformity, limited range of motion, muscle cramps, muscle weakness or numbness Integumentary Integumentary: Absent lesions, rash or wounds Neurological Neurological: Absent focal weakness, headache(s) or numbness Psychiatric Psychiatric: Absent anxiety, depression or hallucinations PFSH PFSH All Active Problems (Updated 09/03/22 @ 16:07 by Alex Potts MD) Palliative care encounter (Acute) KAMINI (acute kidney injury) (Acute) Acute confusion (Acute) Hallucination, visual (Acute) Breath shortness (Acute) Wheezes (Acute) Acute renal failure superimposed on stage 3a chronic kidney disease (Acute) Diverticulitis (Acute) Elevated troponin (Acute) Abdominal pain (Acute) Abdominal pain, acute (Acute) History of kidney stones (Acute) Degenerative joint disease of spine (Acute) Chronic, continuous use of opioids (Acute) Hypertension, essential (Acute) Acute abdominal pain in right flank (Acute) Diarrhea (Acute) Nausea and vomiting (Acute) Atherosclerosis (Acute) Medical History Abdominal pain Chronic, 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 Diverticulitis Diverticulitis History of kidney stones Hypertension, essential Hypokalemia Influenza Musculoskeletal chest pain Pneumonia Surgical History History of lumbosacral spine surgery Family History Father Cancer Mother Cancer Social History smoking status: Former smoker alcohol intake frequency: does not drink substance use type: does not use MEDS/ALLERGIES Home Medications and Allergies Home Medications Medication Instructions Recorded Confirmed Type amlodipine 10 mg tablet 10 mg PO QAM 03/20/21 08/24/22 History atorvastatin 10 mg tablet 10 mg PO QDAY 03/20/21 09/03/22 History gabapentin 300 mg capsule 300 mg PO TID 03/20/21 09/03/22 History lipase 3,000-protease 2 cap PO TID 03/20/21 09/03/22 History 9,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,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, delayed rel (Creon) tamsulosin 0.4 mg capsule 0.4 mg PO BID UTI symptoms 03/21/21 09/03/22 History ondansetron 4 mg disintegrating 4 mg PO Q8H PRN nausea and 03/22/21 09/03/22 Rx tablet vomiting #30 tabs apixaban 5 mg tablet (Eliquis) 5 mg PO BID #60 tabs 03/23/21 09/03/22 Rx hydrocodone 7.5 mg-acetaminophen 1 tab PO Q4-6HP PRN Pain #10 tabs 03/24/21 09/03/22 Rx 325 mg tablet Vitamin D3 2,000 mcg PO DAILY 08/24/22 09/03/22 History calcium carbonate 1 cap PO DAILY 08/24/22 09/03/22 History docusate sodium 100 mg capsule 100 mg PO PRN PRN Gastrointestinal 08/24/22 History (Colace) Spasms Or Cramping furosemide 40 mg tablet 1 tab PO QDAY 08/24/22 09/03/22 History imatinib 100 mg tablet 100 tab PO DAILY 08/24/22 09/03/22 History morphine 30 mg tablet,extended 15 mg PO BIDP PRN Pain #7 tabs 08/24/22 09/03/22 Rx release Allergies Allergy/AdvReac Type Severity Reaction Status Date / Time methocarbamol Allergy Severe Anaphylaxis Verified 08/24/22 08:47 acetaminophen AdvReac Unknown Verified 08/24/22 08:47 [From [facility]-N] Enalapril AdvReac Unknown Verified 08/24/22 08:47 propoxyphene AdvReac Unknown Verified 08/24/22 08:47 [From Darvocet-N] EXAM Constitutional Vitals: Temp Pulse Resp BP Pulse Ox O2 Del Method O2 Flow Rate 36.4 C 85 19 133/60 100 15 09/03/22 10:34 09/03/22 15:05 09/03/22 15:05 09/03/22 15:01 09/03/22 15:05 09/03/22 10:34 09/03/22 10:34 General appearance: cooperative and no acute distress Exam: lethargic Head Head exam: Present atraumatic and normocephalic Eye Eye exam: Present EOMI and PERRL ENT ENT exam: Present mucous membranes moist, normal exam and normal external ear exam Additional comments: Nonrebreather oxygen in place Neck Neck exam: Present normal inspection; Absent lymphadenopathy, tenderness or thyromegaly Respiratory Respiratory exam: Absent accessory muscle use, respiratory distress or wheezes Cardiovascular Cardiovascular exam: Present normal rate and rhythm; Absent JVD GI/Abdominal GI/Abdominal exam: Present normal bowel sounds and soft; Absent organomegaly or tenderness Rectal Rectal exam: Present deferred Extremities Exam Extremities exam: Present full ROM, normal capillary refill and normal inspection; Absent tenderness Neurological Exam Neurological exam: Present alert and CN II-XII intact; Absent motor sensory deficit Additional comments: lethargic Psychiatric Psychiatric exam: Present normal affect and normal mood; Absent anxious or depressed Skin Skin exam: Present dry and intact A/P Assessment and plan (1) Palliative care encounter: Status: Acute Narrative A/P Narrative: Will admit patient for observation med surg for palliative care while awaiting hospice placement. Time Spent With Patient Time: Total time spent is greater than 50% in coordination of care (as documented) at patient's floor/unit and/or counseling patient: Total time spent with greater than 50% in coordination of care (as documented) at patient's floor/unit and/or counseling patient:: 35 - 50 minutes
[2022-09-03] MEDS ORDERED: DOCUSATE SODIUM 100 MG CAPSULE PO PRN (17:32)
[2022-09-03] MEDS ORDERED: HYDROcodone/APAP (PP) 7.5/325MG TABLET (#4) PO PRN (17:32)
[2022-09-03] MEDS ORDERED: SCOPOLAMINE 1 PATCH PATCH TOPICAL SCH (17:32)
[2022-09-03] MEDS ORDERED: ONDANSETRON (PP) 4 MG TABLET PO PRN (17:32)
[2022-09-03] MEDS ORDERED: IPRATROPIUM/ALBUTEROL 3 ML AMPUL.NEB NEB PRN (17:32)
[2022-09-03] MEDS ORDERED: LORazepam 1 MG TABLET PO PRN (17:32)
[2022-09-03] MEDS ORDERED: ZOLPIDEM 5 MG TABLET PO PRN (17:32)
[2022-09-03] MEDS ORDERED: ONDANSETRON 4 MG ODT TABLET SL PRN (17:32)
[2022-09-03] MEDS ORDERED: IBUPROFEN 600 MG TABLET PO PRN (17:32)
[2022-09-03] MEDS ORDERED: ONDANSETRON 4 MG/2 ML VIAL IV PRN (17:32)
[2022-09-03] MEDS ORDERED: morphine 15 MG TAB.SR.12H PO PRN (19:34)
[2022-09-03] MEDS ORDERED: HYDROCODONE/APAP 7.5/325MG TABLET PO PRN (19:35)
[2022-09-03] MEDS: DOCUSATE SODIUM 100 MG CAPSULE PO SCH (21:00)
[2022-09-03] MEDS: TAMSULOSIN 0.4 MG CAPSULE PO SCH (21:00)
[2022-09-03] MEDS: GABAPENTIN 300 MG CAPSULE PO SCH (21:00)
[2022-09-03] MEDS: SENNOSIDES 1 TABLET PO SCH (21:00)
[2022-09-03] MEDS ORDERED: 0.9 % SODIUM CHLORIDE 10 ML SYRINGE IV SCH (22:00)
[2022-09-03] MEDS: 0.9 % SODIUM CHLORIDE 10 ML SYRINGE IV SCH (23:14)
[2022-09-04] MEDS: 0.9 % SODIUM CHLORIDE 10 ML SYRINGE IV SCH (06:38)
[2022-09-04] MEDS: LIPASE/PROTEASE/AMYLASE 1 CAP CAPSULE PO SCH ×2 (08:17→12:14)
--- NOTE | 2022-09-04 08:26 | XRay Report ---
INDICATION: sob TECHNIQUE: AP portable upright chest x-ray COMPARISON: Previous chest x-rays dated 07/13/2021, 03/23/2021 FINDINGS: Lungs:Negative left lung. No focal infiltrate. Infiltrates in the right lung are new since 07/13/2021. There is right basilar predominance. Appearance is consistent with pneumonia. Clinical correlation and follow-up radiographs are recommended. If these infiltrates are persistent chest CT scan is recommended. Heart, vascular:No significant cardiomegaly. Pulmonary vascularity is normal. No pulmonary edema or pulmonary congestion Mediastinum, shlomo:No mediastinal widening. No hilar mass Pleura:No definite pleural fluid Skeletal:Bilateral reverse shoulder arthroplasty IMPRESSION: 1. Right lung infiltrates are new or worse since previous examination 2. Findings are consistent with pneumonia. Follow-up radiographs are recommended and if these infiltrates are persistent chest CT scan is appropriate Interpreted and Authenticated by: Daniel Durham 09/04/22
[2022-09-04] MEDS: GABAPENTIN 300 MG CAPSULE PO SCH ×3 (09:10→22:19)
[2022-09-04] MEDS: CALCIUM CARBONATE 500 MG TAB.CHEW CHEWED SCH (09:10)
[2022-09-04] MEDS: DOCUSATE SODIUM 100 MG CAPSULE PO SCH ×2 (09:10→22:19)
[2022-09-04] MEDS: TAMSULOSIN 0.4 MG CAPSULE PO SCH ×2 (09:10→22:19)
[2022-09-04] MEDS: FUROSEMIDE 40 MG TABLET PO SCH ×2 (09:10→09:12)
--- NOTE | 2022-09-04 11:04 | Internal Med Progress Note ---
SUBJECTIVE Subjective Patient information: Note initiated : 09/04/22 at 11:03 am Service Date, if different from initiated Date: [] Patient: Torrey Castro 87 y/o M admitted on 09/03/22 for Altered LOC. Chief Complaint: [] Interval history: Mr. Castro is a 87 year old M multiple past medical history presenting with need for hospice palliative care. Is a assisted-living facility resident but family just decided to switch to hospice palliative care. However, the facility he is coming from does not have the ability to deliver the level of care the family wants. Since his the weekend, no other arrangement could be arranged. Family also unable to take care of the patient's at home and perform home hospice. As a result, patient was brought to our ER for further management. Admission request called for palliative care while awaiting hospice placement. 09/04: Stable. Continue palliative care. Starting Augmentin as per family request. Pending hospice placement. Constitutional Vitals: Vital Signs Temp Pulse Resp BP Pulse Ox O2 Del Method O2 Flow Rate 36.8 C 88 16 110/69 94 2 09/04/22 07:49 09/04/22 00:00 09/04/22 07:49 09/04/22 07:49 09/04/22 07:49 09/04/22 09:00 09/04/22 09:00 Period Temp Pulse Resp BP Sys/Crespo Pulse Ox O2 Del Method O2 Flow Rate Last 24 Hr 36.4 C-38.6 C 84-98 15-26 99-144/55-93 80-100 Nasal Cannula- Room Air 0-2 Intake and Output 09/03/22 09/04/22 09/04/22 21:59 05:59 13:59 Intake Total 120 Output Total 1 2 Balance -1 -2 120 Weight 65.952 kg Intake & Output: Intake & Output 09/03/22 09/04/22 09/04/22 21:59 05:59 13:59 Intake Total 120 Output Total 1 2 Balance -1 -2 120 Weight 65.952 kg Intake: Oral 120 Output: # of times incontinent of urine 1 2 Other: Meal Breakfast Percent of Meal Consumed 100% Feeding Ability Assist with Tray Set Up Urine Appearance Clear Urine Color Yellow Urine Odor Normal # Bowel Movements 0 0 Head Head exam: Present atraumatic and normal inspection Eye Eye exam: Present normal appearance ENT ENT exam: Present mucous membranes moist, normal exam and normal external ear exam Additional comments: Nasal cannula in place Neck Neck exam: Present normal inspection Respiratory Respiratory exam: Present decreased breath sounds Cardiovascular Cardiovascular exam: Present normal rate and rhythm GI/Abdominal GI/Abdominal exam: Present normal bowel sounds Back Exam Back exam: Present normal inspection Neurological Exam Neurological exam: Present alert and oriented X3 Skin Skin exam: Present intact and warm OBJ DATA Labs Meds: Medications Hydrocodone Bitart/Acetaminophen (Hydrocodone/Apap 7.5/325mg Tablet) 1 tab PO Q4-6HP PRN; Protocol PRN Reason: Per Pain Protocol Albuterol/Ipratropium (Ipratropium/Albuterol 3 Ml Ampul.Neb) 3 ml NEB Q4HRT PRN PRN Reason: Wheezing Amoxicillin/Clavulanate Potassium (Amoxicillin/Potassium Clav 875 Mg Tablet) 875 mg PO BIDCC CONCHIS; Protocol Lipase/Protease/Amylase (Lipase/Protease/Amylase 1 Cap Capsule) 2 cap PO TIDCC [facility] Last Admin: 09/04/22 08:17 Dose: 2 cap Calcium Carbonate/Glycine (Calcium Carbonate 500 Mg Tab.Chew) 500 mg CHEWED DAILY [facility] Last Admin: 09/04/22 09:10 Dose: 500 mg Docusate Sodium (Docusate Sodium 100 Mg Capsule) 100 mg PO BID [facility] Last Admin: 09/04/22 09:10 Dose: 100 mg Furosemide (Furosemide 40 Mg Tablet) 40 mg PO QDAY [facility] Last Admin: 09/04/22 09:12 Dose: Not Given Gabapentin (Gabapentin 300 Mg Capsule) 300 mg PO TID [facility] Last Admin: 09/04/22 09:10 Dose: 300 mg Ibuprofen (Ibuprofen 600 Mg Tablet) 600 mg PO QIDP PRN; Protocol PRN Reason: Per Pain Protocol/Fever > 101 Last Admin: 09/03/22 23:14 Dose: 600 mg Lorazepam (Lorazepam 1 Mg Tablet) 1 mg PO Q1HP PRN PRN Reason: ANXIETY/SEDATION Morphine Sulfate (Morphine 4 Mg/Ml Vial) 4 mg IM Q1HP PRN; Protocol PRN Reason: Per Pain Protocol Last Admin: 09/03/22 12:55 Dose: 4 mg Morphine Sulfate (Morphine 15 Mg Tab.Sr.12h) 15 mg PO BIDP PRN; Protocol PRN Reason: Pain Ondansetron HCl (Ondansetron 4 Mg/2 Ml Vial) 4 mg IV Q6HP PRN PRN Reason: Nausea And Vomiting Ondansetron HCl (Ondansetron 4 Mg Odt Tablet) 4 mg SL Q4HP PRN; Protocol PRN Reason: Nausea And Vomiting Scopolamine (Scopolamine 1 Patch Patch) 1 patch TOPICAL Q72H [facility] Last Admin: 09/03/22 21:00 Dose: Not Given Senna (Sennosides 1 Tablet) 2 tab PO HS [facility] Last Admin: 09/03/22 21:00 Dose: Not Given Sodium Chloride (0.9 % Sodium Chloride 10 Ml Syringe) 10 ml IV Q8 [facility] Last Admin: 09/04/22 06:38 Dose: Not Given Tamsulosin HCl (Tamsulosin 0.4 Mg Capsule) 0.4 mg PO BID [facility] Last Admin: 09/04/22 09:10 Dose: 0.4 mg Zolpidem Tartrate (Zolpidem 5 Mg Tablet) 5 mg PO HSP PRN PRN Reason: Insomnia A/P Assessment and plan (1) Palliative care encounter: Status: Acute Narrative A/P Narrative: Continue palliative care. Starting Augmentin as per family request. Pending hospice placement. Time Spent With Patient Time: Total time spent is greater than 50% in coordination of care (as documented) at patient's floor/unit and/or counseling patient: Total time spent with greater than 50% in coordination of care (as documented) at patient's floor/unit and/or counseling patient:: 25 - 35 minutes QUALITY VTE Deep Vein Thrombosis/Pulmonary Embolism Present on Admission: No
[2022-09-04] MEDS: AMOXICILLIN/POTASSIUM CLAV 875 MG TABLET PO SCH (17:22)
[2022-09-04] MEDS: SENNOSIDES 1 TABLET PO SCH (22:19)
[2022-09-05] MEDS: AMOXICILLIN/POTASSIUM CLAV 875 MG TABLET PO SCH (08:22)
[2022-09-05] MEDS: FUROSEMIDE 40 MG TABLET PO SCH (08:23)
[2022-09-05] MEDS: CALCIUM CARBONATE 500 MG TAB.CHEW CHEWED SCH (08:23)
[2022-09-05] MEDS: DOCUSATE SODIUM 100 MG CAPSULE PO SCH (08:23)
[2022-09-05] MEDS: TAMSULOSIN 0.4 MG CAPSULE PO SCH (08:23)
[2022-09-05] MEDS: GABAPENTIN 300 MG CAPSULE PO SCH ×2 (08:23→14:53)
--- NOTE | 2022-09-05 13:40 | Discharge Summary ---
Discharge Provider Provider IMPORTANT FOLLOW-UP INFORMATION FOR PCP: Patient information: Note initiated : 09/05/22 at 1:38 pm Service Date, if different from initiated Date: [] Patient: Torrey Castro 87 y/o M admitted on 09/03/22 for Altered LOC. Chief Complaint: [] Date of admission: 09/03/22 16:41 Discharge date: 09/05/22 Primary care physician: Amanda Hemphill Attending physician on admission: Alex Potts Consults: 09/03/22 14:54 Consult to Physician [CONS] Stat Comment: Consulting Provider: Alex Potts Reason For Exam: Physician to Consult Attending physician on discharge: Alex Oneal [place] COURSE Hospital Course Hospital course: Mr. Castro is a 87 year old M multiple past medical history presenting with need for hospice palliative care. Is a assisted-living facility resident but family just decided to switch to hospice palliative care. However, the facility he is coming from does not have the ability to deliver the level of care the family wants. Since his the weekend, no other arrangement could be arranged. Family also unable to take care of the patient's at home and perform home hospice. As a result, patient was brought to our ER for further management. Admission request called for palliative care while awaiting hospice placement. 09/04: Stable. Continue palliative care. Starting Augmentin as per family request. Pending hospice placement. 09/05: Family refused hospice. Patient d/c back to [facility] with home health physical therapy. Discharge diagnosis: COPD, pneumonia Time Spent with Patient Time attestation: Total time spent providing and/or coordinating discharge services: Time spent: Less than 30 minutes EXAM Constitutional Vitals: Temp Pulse Resp BP Pulse Ox O2 Del Method O2 Flow Rate 37.3 C H 86 16 143/65 95 1 09/05/22 08:00 09/05/22 11:07 09/05/22 11:07 09/05/22 08:00 09/05/22 11:07 09/05/22 11:07 09/05/22 11:07 General appearance: cooperative and no acute distress Head Head exam: Present atraumatic and normocephalic Eye Eye exam: Present EOMI and PERRL ENT ENT exam: Present mucous membranes moist, normal exam and normal external ear exam Additional comments: Nasal cannula in place Neck Neck exam: Present normal inspection; Absent lymphadenopathy, tenderness or thyromegaly Respiratory Respiratory exam: Present decreased breath sounds; Absent accessory muscle use, respiratory distress or wheezes Cardiovascular Cardiovascular exam: Present irregular rhythm; Absent JVD GI/Abdominal GI/Abdominal exam: Present normal bowel sounds and soft; Absent organomegaly or tenderness Rectal Rectal exam: Present deferred Extremities Exam Extremities exam: Present full ROM, normal capillary refill and normal inspection; Absent tenderness Neurological Exam Neurological exam: Present alert, CN II-XII intact and oriented X3; Absent motor sensory deficit Psychiatric Psychiatric exam: Present normal affect and normal mood; Absent anxious or depressed Skin Skin exam: Present dry and intact Discharge Plan Patient/Caregiver Discharge Instructions Activity: increase activity as tolerated Diet: Regular Diet Prescriptions: New amoxicillin-pot clavulanate 875-125 mg Tablet 875 mg PO BIDCC Qty: 18 0RF Continued amlodipine 10 mg tablet 10 mg PO QAM atorvastatin 10 mg tablet 10 mg PO QDAY gabapentin 300 mg capsule 300 mg PO TID tamsulosin 0.4 mg capsule 0.4 mg PO BID ondansetron 4 mg tablet,disintegrating 4 mg PO Q8H PRN (Reason: nausea and vomiting) Qty: 30 0RF furosemide 40 mg tablet 1 tab PO QDAY docusate sodium [Colace] 100 mg Capsule 100 mg PO PRN PRN (Reason: Gastrointestinal Spasms Or Cramping) imatinib 100 mg tablet 200 tab PO DAILY Vitamin D3 2,000 mcg PO DAILY calcium carbonate 1 cap PO DAILY famotidine 20 mg Tablet 40 mg PO QHS magnesium hydroxide [Milk of Magnesia] 400 mg/5 mL Suspension 30 ml PO QDAY PRN (Reason: Constipation) ibuprofen 200 mg Tablet 400 mg PO Q6HP PRN (Reason: Pain) doxylamine succinate 25 mg Tablet 25 mg PO QHS PRN (Reason: insomnia) Xarelto 15 mg tablet 1 tab PO DAILY Label Comments: [NO ORIGINAL SIG] morphine 30 mg tablet extended release 15 mg PO BIDP PRN (Reason: Pain) Qty: 7 0RF hydrocodone-acetaminophen 7.5-325 mg tablet 1 tab PO Q4-6HP PRN (Reason: Pain) Qty: 10 0RF Follow Up Plan Follow up with: PCP, PCP [Other] Amanda Hemphill MD [Primary Care Provider] - Patient Disposition: Home Health Service Prognosis: Undetermined Rehab Potential: Good I certify that the patient requires SNF services: No Overall status at discharge: patient is back to baseline Discharge Orders: Discharge Order (Routine); Ordered 09/05/22 Ordered By: Alex GERMAN VTE Deep Vein Thrombosis/Pulmonary Embolism Present on Admission: No
== END 2022-09-05 15:45 | disposition home health service (06) ==
LOC: ED 10:34 → MEDSUR 10:34
PROVIDERS: ADMIT Internal Medicine; ATTEND Internal Medicine

== ENCOUNTER 2023-11-13 11:44 | Inpatient (IN) ==
[2023-11-13] MEDS ORDERED: methylPREDNISolone SOD SUCC 125 MG/2 ML VIAL IV ONE (11:57)
[2023-11-13] MEDS ORDERED: IPRATROPIUM/ALBUTEROL 3 ML AMPUL.NEB NEB ONE (11:57)
[2023-11-13] MEDS ORDERED: FUROSEMIDE 20 MG/2 ML VIAL IV ONE (12:30)
[2023-11-13 12:46] LABS: Basophils # (Auto) 0 K/mcL (0.00-0.30); Basophils % (Auto) 0 % (0.0-2.0); Eosinophils # (Auto) 0.01 K/mcL (0.00-0.70); Eosinophils % (Auto) 0.1 % (0.0-7.0); Hematocrit 35.4 % (40.1-51.0); Hemoglobin 11.4 g/dL (13.7-17.5); Lymphocytes # (Auto) 1.04 K/mcL (1.50-4.80); Lymphocytes % (Auto) 9.5 % (15.5-49.0); Mean Cell Volume 93.2 fL (80.0-100.0); Mean Corpuscular HGB Conc 32.2 g/dL (31.0-36.0); Mean Platelet Volume 9.3 fL (8.8-12.5); Monocytes # (Auto) 0.85 K/mcL (0.10-0.90); Monocytes % (Auto) 7.8 % (1.0-12.0); Neutrophils % (Auto) 81.6 % (38.0-78.0); Platelet Count 226 K/mcL (140-440); Red Cell Distribution Width 14.6 % (11.5-14.5); WBC 10.9 K/mcL (4.5-11.0)
[2023-11-13] MEDS ORDERED: cefTRIAXone 2 GM in DEXTROSE 5% IN WATER 50 ML IV ONE (13:12)
[2023-11-13] MEDS ORDERED: AZITHROMYCIN 500 MG in DEXTROSE 5% IN WATER 250 ML IV ONE (13:12)
[2023-11-13 13:18] LABS: Blood Urea Nitrogen 32 mg/dL (8-23); Calcium 9.6 mg/dL (8.6-10.4); Carbon Dioxide 27 mmol/L (22-30); Chloride 100 mmol/L (96-108); Glomerular Filtration Rate 38; Glucose 176 mg/dL (70-105)
[2023-11-13 14:01] LABS: ABG Methemoglobin 0.4 % (0.4-1.5); Total Hemoglobin 12.9 gm/Dl (13.5-16.5); VBG Base Excess 4 (-2-3); VBG HCO3 30.1 mmol/L (24.0-28.0); VBG Oxygen Saturation 90.3 % (40.0-70.0); VBG PCO2 51.4 mmHg (41.0-51.0); VBG PH 7.39 U (7.32-7.42); VBG PO2 77.8 mmHg (25.0-40.0); VBG Total CO2 31.6 mmol/L (25.0-29.0)
[2023-11-13 16:21] LABS: Appearance,Urine Clear (Clear); Bilirubin,Urine Negative (Negative); Color,Urine Yellow; Culture Indicated,Urine No; Glucose,Urine (UA) Negative (Negative); Ketones,Urine Negative (Negative); Leukocyte Esterase,Urine Negative /uL (Negative); Nitrate,Urine Negative (Negative); Protein,Urine Negative (Negative); Specific Gravity,Urine 1.015 (1.000-1.035); Urine Blood 2+(Moderate) ery/mcL (Negative); Urine RBC 0 /hpf (0-3); Urine Squamous Epithelial Cell 0 /hpf (0-4); Urine WBC 0 /hpf (0-4); Urobilinogen,Urine Normal
[2023-11-13] MEDS ORDERED: POLYETHYLENE GLYCOL 3350 17 GM PACKET PO PRN (17:07)
[2023-11-13] MEDS ORDERED: POTASSIUM CHLORIDE 20 MEQ TABLET PO PRN ×2 (17:07)
[2023-11-13] MEDS ORDERED: IPRATROPIUM/ALBUTEROL 3 ML AMPUL.NEB NEB PRN (17:07)
[2023-11-13] MEDS ORDERED: METOPROLOL TARTRATE 5 MG/5 ML VIAL IV PRN (17:07)
[2023-11-13] MEDS ORDERED: SENNOSIDES 1 TABLET PO PRN (17:07)
[2023-11-13] MEDS ORDERED: MAGNESIUM SULFATE 2 GM/50 ML BAG IV PRN (17:07)
[2023-11-13] MEDS ORDERED: POTASSIUM CHLORIDE 40 MEQ in DEXTROSE 5% IN WATER 500 ML IV PRN (17:07)
[2023-11-13] MEDS ORDERED: ONDANSETRON 4 MG/2 ML VIAL IV PRN (17:07)
[2023-11-13] MEDS: FUROSEMIDE 40 MG/4 ML VIAL IV SCH (17:35)
[2023-11-13 17:54] LABS: Partial Thromboplastin Time 40.7 sec (20.0-37.0); Prothrombin Time 32.1 sec (11.9-14.5)
[2023-11-13] MEDS: DOCUSATE SODIUM 100 MG CAPSULE PO SCH (19:38)
[2023-11-13] MEDS ORDERED: FAMOTIDINE 20 MG TABLET PO ONE ×2 (22:47→22:50)
[2023-11-13] MEDS ORDERED: GABAPENTIN 300 MG CAPSULE ONE (22:47)
[2023-11-13] MEDS ORDERED: TAMSULOSIN 0.4 MG CAPSULE PO ONE (22:48)
[2023-11-13] MEDS: FAMOTIDINE 20 MG TABLET PO SCH (23:00)
[2023-11-13] MEDS: TAMSULOSIN 0.4 MG CAPSULE PO SCH (23:01)
[2023-11-13] MEDS: GABAPENTIN 300 MG CAPSULE PO SCH (23:01)
[2023-11-14 07:13] LABS: ALT/SGPT 24 U/L (<40); AST/SGOT 30 U/L (<40); Albumin 3.8 gm/dL (3.2-5.2); Albumin/Globulin Ratio 2.1 (1.0-2.3); Alkaline Phosphatase 65 U/L (39-117); Bilirubin,Direct 0.4 mg/dL (<0.3); Bilirubin,Total 0.9 mg/dL (0.1-1.0); Blood Urea Nitrogen 36 mg/dL (8-23); Calcium 9.2 mg/dL (8.6-10.4); Carbon Dioxide 29 mmol/L (22-30); Chloride 101 mmol/L (96-108); Globulin 1.8 gm/dL (2.2-3.7); Glomerular Filtration Rate 38; Glucose 190 mg/dL (70-105); Lactate Dehydrogenase 227 U/L (135-225); Phosphorous 4.7 mg/dL (2.5-4.5); Triglycerides 91 mg/dL (<150); Uric Acid 9.5 mg/dL (2.5-8.0)
[2023-11-14 07:18] LABS: Basophils # (Auto) 0 K/mcL (0.00-0.30); Basophils % (Auto) 0 % (0.0-2.0); Eosinophils # (Auto) 0 K/mcL (0.00-0.70); Eosinophils % (Auto) 0 % (0.0-7.0); Hematocrit 34.5 % (40.1-51.0); Hemoglobin 11.1 g/dL (13.7-17.5); Lymphocytes # (Auto) 0.42 K/mcL (1.50-4.80); Lymphocytes % (Auto) 5.4 % (15.5-49.0); Mean Cell Volume 93.5 fL (80.0-100.0); Mean Corpuscular HGB Conc 32.2 g/dL (31.0-36.0); Mean Platelet Volume 9.5 fL (8.8-12.5); Monocytes # (Auto) 0.36 K/mcL (0.10-0.90); Monocytes % (Auto) 4.7 % (1.0-12.0); Neutrophils % (Auto) 88.3 % (38.0-78.0); Platelet Count 215 K/mcL (140-440); RBC 3.69 M/mcL (4.63-6.08); Red Cell Distribution Width 14.4 % (11.5-14.5); WBC 7.7 K/mcL (4.5-11.0)
[2023-11-14] MEDS: FUROSEMIDE 40 MG/4 ML VIAL IV SCH (08:10)
[2023-11-14] MEDS: RIVAROXABAN 15 MG TABLET PO SCH (08:10)
[2023-11-14] MEDS: GABAPENTIN 300 MG CAPSULE PO SCH ×3 (08:10→20:19)
[2023-11-14] MEDS: DOCUSATE SODIUM 100 MG CAPSULE PO SCH ×2 (08:10→20:19)
[2023-11-14] MEDS: ATORVASTATIN 10 MG TABLET PO SCH (08:10)
[2023-11-14] MEDS: TAMSULOSIN 0.4 MG CAPSULE PO SCH ×2 (08:10→20:19)
[2023-11-14 08:45] LABS: INR 1.7 (0.9-1.1); Prothrombin Time 20.6 sec (11.9-14.5)
[2023-11-14] MEDS ORDERED: ENOXAPARIN 40 MG/0.4 ML SYRINGE SQ SCH (09:00)
[2023-11-14] MEDS: METOPROLOL TARTRATE 25 MG TABLET PO SCH ×2 (09:50→20:19)
[2023-11-14 12:47] LABS: LDH,Pleural Fluid 59 U/L (<122)
[2023-11-14 14:23] LABS: Appearance,Pleural Fluid Clear; Color,Pleural Fluid Yellow; Lymphocytes,Pleural Fluid 79 %; Mesothelial,Pleural Fluid 2 %; Monocytes,Pleural Fluid 19 %; Neutrophils,Pleural Fluid 0 %; Nucleated Cells,Pleural Fld 259 /cumm; RBC,Pleural Fluid <50,000 /cumm
[2023-11-14] MEDS: IMATINIB 100 MG PO SCH (16:07)
[2023-11-14] MEDS: morphine 30 MG TAB.SR.12H PO PRN (19:36)
[2023-11-14] MEDS: FAMOTIDINE 20 MG TABLET PO SCH (20:19)
[2023-11-14] MEDS: HYDROcodone/APAP 10/325MG TABLET PO PRN (21:29)
[2023-11-14] MEDS: diphenhydrAMINE 25 MG CAPSULE PO PRN (22:44)
[2023-11-15] MEDS: HYDROcodone/APAP 10/325MG TABLET PO PRN ×3 (02:13→19:57)
[2023-11-15 06:42] LABS: ALT/SGPT 29 U/L (<40); AST/SGOT 34 U/L (<40); Albumin 3.8 gm/dL (3.2-5.2); Albumin/Globulin Ratio 2.1 (1.0-2.3); Alkaline Phosphatase 67 U/L (39-117); Bilirubin,Direct 0.5 mg/dL (<0.3); Bilirubin,Total 1.4 mg/dL (0.1-1.0); Blood Urea Nitrogen 36 mg/dL (8-23); Calcium 9.1 mg/dL (8.6-10.4); Carbon Dioxide 30 mmol/L (22-30); Chloride 102 mmol/L (96-108); Globulin 1.8 gm/dL (2.2-3.7); Glomerular Filtration Rate 44; Glucose 153 mg/dL (70-105); Lactate Dehydrogenase 246 U/L (135-225); Phosphorous 3.9 mg/dL (2.5-4.5); Triglycerides 128 mg/dL (<150); Uric Acid 9.4 mg/dL (2.5-8.0)
[2023-11-15] MEDS: DOCUSATE SODIUM 100 MG CAPSULE PO SCH ×2 (09:23→19:58)
[2023-11-15] MEDS: RIVAROXABAN 15 MG TABLET PO SCH (09:24)
[2023-11-15] MEDS: TAMSULOSIN 0.4 MG CAPSULE PO SCH ×2 (09:24→19:57)
[2023-11-15] MEDS: GABAPENTIN 300 MG CAPSULE PO SCH ×3 (09:24→19:57)
[2023-11-15] MEDS: METOPROLOL TARTRATE 25 MG TABLET PO SCH ×2 (09:24→19:57)
[2023-11-15] MEDS: ATORVASTATIN 10 MG TABLET PO SCH (09:24)
[2023-11-15] MEDS: IMATINIB 100 MG PO SCH (09:25)
[2023-11-15 12:25] LABS: LDH,Pleural Fluid 82 U/L (<122)
[2023-11-15 14:45] LABS: Appearance,Pleural Fluid Clear; Color,Pleural Fluid Yellow; Lymphocytes,Pleural Fluid 79 %; Monocytes,Pleural Fluid 16 %; Neutrophils,Pleural Fluid 5 %; Nucleated Cells,Pleural Fld 210 /cumm; RBC,Pleural Fluid <50,000 /cumm
[2023-11-15] MEDS: diphenhydrAMINE 25 MG CAPSULE PO PRN (19:57)
[2023-11-15] MEDS: morphine 30 MG TAB.SR.12H PO PRN (19:57)
[2023-11-15] MEDS: FAMOTIDINE 20 MG TABLET PO SCH (19:58)
[2023-11-16 06:47] LABS: Blood Urea Nitrogen 30 mg/dL (8-23); C-Reactive Protein 6.49 mg/dL (0.03-0.80); Calcium 8.5 mg/dL (8.6-10.4); Carbon Dioxide 28 mmol/L (22-30); Chloride 104 mmol/L (96-108); Glomerular Filtration Rate 48; Glucose 135 mg/dL (70-105)
[2023-11-16] MEDS ORDERED: acetaZOLAMIDE SOD 500 MG VIAL IV ONE (09:10)
[2023-11-16] MEDS: RIVAROXABAN 15 MG TABLET PO SCH (09:36)
[2023-11-16] MEDS: GABAPENTIN 300 MG CAPSULE PO SCH ×3 (09:36→21:54)
[2023-11-16] MEDS: TAMSULOSIN 0.4 MG CAPSULE PO SCH ×2 (09:36→21:54)
[2023-11-16] MEDS: ATORVASTATIN 10 MG TABLET PO SCH (09:36)
[2023-11-16] MEDS: METOPROLOL TARTRATE 25 MG TABLET PO SCH ×2 (09:36→21:54)
[2023-11-16] MEDS: FUROSEMIDE 40 MG/4 ML VIAL IV SCH ×2 (09:37→16:46)
[2023-11-16] MEDS: DOCUSATE SODIUM 100 MG CAPSULE PO SCH ×2 (10:30→21:54)
[2023-11-16] MEDS: IMATINIB 100 MG PO SCH (10:30)
[2023-11-16] MEDS: morphine 30 MG TAB.SR.12H PO PRN (16:05)
[2023-11-16] MEDS: HYDROcodone/APAP 10/325MG TABLET PO PRN (16:05)
[2023-11-16] MEDS: FAMOTIDINE 20 MG TABLET PO SCH (21:54)
[2023-11-16] MEDS: diphenhydrAMINE 25 MG CAPSULE PO PRN (21:54)
[2023-11-17 07:21] LABS: ALT/SGPT 23 U/L (<40); AST/SGOT 23 U/L (<40); Albumin 3.2 gm/dL (3.2-5.2); Albumin/Globulin Ratio 1.6 (1.0-2.3); Alkaline Phosphatase 64 U/L (39-117); Bilirubin,Direct 0.5 mg/dL (<0.3); Bilirubin,Total 1.6 mg/dL (0.1-1.0); Blood Urea Nitrogen 29 mg/dL (8-23); Calcium 8.6 mg/dL (8.6-10.4); Carbon Dioxide 25 mmol/L (22-30); Chloride 106 mmol/L (96-108); Glomerular Filtration Rate 53; Glucose 141 mg/dL (70-105); Lactate Dehydrogenase 261 U/L (135-225); Phosphorous 2.8 mg/dL (2.5-4.5); Triglycerides 103 mg/dL (<150)
[2023-11-17] MEDS: IMATINIB 100 MG PO SCH (08:01)
[2023-11-17] MEDS: DOCUSATE SODIUM 100 MG CAPSULE PO SCH (08:01)
[2023-11-17] MEDS: RIVAROXABAN 15 MG TABLET PO SCH (08:13)
[2023-11-17] MEDS: HYDROcodone/APAP 10/325MG TABLET PO PRN (08:13)
[2023-11-17] MEDS: METOPROLOL TARTRATE 25 MG TABLET PO SCH (08:14)
[2023-11-17] MEDS: ATORVASTATIN 10 MG TABLET PO SCH (08:14)
[2023-11-17] MEDS: GABAPENTIN 300 MG CAPSULE PO SCH (08:14)
[2023-11-17] MEDS: TAMSULOSIN 0.4 MG CAPSULE PO SCH (08:15)
[2023-11-17 19:24] LABS: M. Pneumoniae IGG 941 U/mL (0-99); M. Pneumoniae IGM <770 U/mL (0-769)
== END 2023-11-17 14:21 | DRG 291 ==
LOC: ED 11:44 → ICU 16:50
PROVIDERS: ADMIT Internal Medicine; ATTEND Internal Medicine